=== PATIENT | female | born 1940 | race Caucasian/White ===

== ENCOUNTER 2017-05-26 14:27 | Emergency (ER) | payer BC, MEDICARE ==
--- NOTE | 2017-05-26 17:14 | ER Document Report ---
ED Medical Screen (RME) - General Chief Complaint: Fall Injury Stated Complaint: FALL HEAD INJURY Time Seen by Provider: 05/26/17 17:07 Mode of Arrival: Wheelchair Information source: Patient, Relative Notes: pt fell today hitting her head on a door. No loc, no N/V. Pt with occipital lac and takes plavix. Family states she falls about once a week. Pt states she fell because she was walking backwards. Family states pt has hx of alheizmers. Pt denies any ORTIZ, CP or other complaints. hx HTN, CAD, COPD, dementia - Related Data Allergies/Adverse Reactions: No Known Allergies Allergy (Unverified 05/26/17 15:14) Physical Exam - Vital signs Vitals: Temp Pulse Resp BP Pulse Ox 97.7 F 87 18 139/69 H 92 05/26/17 15:01 05/26/17 15:01 05/26/17 15:01 05/26/17 15:01 05/26/17 15:01 - Skin Skin irregularity: Laceration - occipital lac Course - Vital Signs Vital signs: Temp Pulse Resp BP Pulse Ox 97.7 F 87 18 139/69 H 92 05/26/17 15:01 05/26/17 15:01 05/26/17 15:01 05/26/17 15:01 05/26/17 15:01
--- NOTE | 2017-05-26 18:15 | RADIOLOGY REPORT (SQ) ---
EXAM DESCRIPTION: CT HEAD WITHOUT COMPLETED DATE/TIME: 05/26/2017 6:00 pm REASON FOR STUDY: fall, head injury COMPARISON: None. TECHNIQUE: Axial images acquired through the brain without intravenous contrast. Images reviewed wi th bone, brain and subdural windows. Images stored on PACS. All CT scanners at this facility use dose modulation, iterative reconstruction, and/or weight based d osing when appropriate to reduce radiation dose to as low as reasonably achievable (ALARA). [facility]: Dose Right [facility]: CareDose [facility]: Dose Right [facility]: Teradose 4D [facility]: [employer] RADIATION DOSE: CT Rad equipment meets quality standard of care and radiation dose reduction techniq ues were employed. CTDIvol: 64.6 mGy. DLP: 1034 mGy-cm. mGy. LIMITATIONS: Patient motion. FINDINGS: VENTRICLES: Prominent. CEREBRUM: No masses. No hemorrhage. No midline shift. Areas of low density in the white matter mos t likely due to chronic micro-vascular ischemic change. No evidence for acute infarction. CEREBELLUM: No masses. No hemorrhage. No alteration of density. No evidence for acute infarction. EXTRAAXIAL SPACES: Mild age-related involutional change. No fluid collections. No masses. ORBITS AND GLOBE: No intra- or extraconal masses. Normal contour of globe without masses. CALVARIUM: No fracture. PARANASAL SINUSES: No fluid or mucosal thickening. SOFT TISSUES: No mass or hematoma. OTHER: No other significant finding. IMPRESSION: MILD CHRONIC CHANGES OF ATROPHY AND MICROVASCULAR ISCHEMIA. NO ACUTE PROCESS. EVIDENCE OF ACUTE STROKE: NO. TECHNICAL DOCUMENTATION: JOB ID: [id number] Quality ID # [id number]: Final reports with documentation of one or more dose reduction techniques (e.g., Au tomated exposure control, adjustment of the mA and/or kV according to patient size, use of iterative reconstruction technique) 2010 [email or web address]- All Rights Reserved
[2017-05-26 18:51] LABS: APPEARANCE,URINE SLIGHTLY-CLOUDY; BILIRUBIN,URINE NEGATIVE (NEGATIVE); COLOR,URINE YELLOW; GLUCOSE, URINE NEGATIVE (NEGATIVE); KETONES,URINE NEGATIVE (NEGATIVE); LEUKOCYTE ESTERASE,URINE SMALL (NEGATIVE); NITRITE,URINE POSITIVE (NEGATIVE); PROTEIN,URINE NEGATIVE (NEGATIVE); URINE SPECIFIC GRAVITY 1.011; UROBILINOGEN,URINE NEGATIVE mg/dL (<2.0)
[2017-05-26 18:55] LABS: ABSOLUTE BASOPHILS # (AUTO) 0.1 10^3/uL (0.0-0.2); ABSOLUTE EOSINOPHILS # (AUTO) 0.1 10^3/uL (0.0-0.6); ABSOLUTE MONOCYTES (AUTO) 0.7 10^3/uL (0.1-1.4); ABSOLUTE NEUT (AUTO) 7.4 10^3/uL (1.7-8.2); BASOPHILS % (AUTO) 0.8 % (0-2); EOSINOPHILS % (AUTO) 0.9 % (0-6); HEMATOCRIT 39.1 % (36.0-47.0); HEMOGLOBIN 12.6 g/dL (12.0-15.5); LYMPHOCYTES % (AUTO) 19.9 % (13-45); MEAN CORPUSCULAR HEMOGLOBIN 28.6 pg (27.0-33.4); MEAN CORPUSCULAR HGB CONC 32.3 g/dL (32.0-36.0); MEAN CORPUSCULAR VOLUME 89 fl (80-97); MONOCYTES % (AUTO) 6.3 % (3-13); PLATELET COUNT 372 10^3/uL (150-450); RED BLOOD COUNT 4.41 10^6/uL (3.72-5.28); RED CELL DISTRIBUTION WIDTH 15.1 % (11.5-14.0); SEGMENTED NEUTROPHILS % (AUTO) 72.1 % (42-78); TOTAL CELLS COUNTED % (AUTO) 100 %; WHITE BLOOD COUNT 10.3 10^3/uL (4.0-10.5)
[2017-05-26 19:05] LABS: ALANINE AMINOTRANSFERASE 26 U/L (9-52); ALBUMIN 3.9 g/dL (3.5-5.0); ALKALINE PHOSPHATASE 85 U/L (38-126); ANION GAP 8 (5-19); ASPARTATE AMINO TRANSFERASE 26 U/L (14-36); BILIRUBIN,DIRECT 0.4 mg/dL (0.0-0.4); BILIRUBIN,TOTAL 0.4 mg/dL (0.2-1.3); BLOOD UREA NITROGEN 23 mg/dL (7-20); CALCIUM 9.9 mg/dL (8.4-10.2); CARBON DIOXIDE 35 mmol/L (22-30); CHLORIDE 95 mmol/L (98-107); GLUCOSE 126 mg/dL (75-110); POTASSIUM 3.1 mmol/L (3.6-5.0); SODIUM 137.6 mmol/L (137-145); TOTAL PROTEIN 6.6 g/dL (6.3-8.2)
[2017-05-26] MEDS ORDERED: DIPH/PERTUSS(ACELL)/TETANUS VAC/PF 0.5 ML SYR (>=10YO) IM ONE (20:27)
[2017-05-26] MEDS ORDERED: LIDOCAINE 4%/TETRACAINE 0.5%/EPI 0.18% 5 ML TOPICAL SOLN TOP ONE (22:05)
--- NOTE | 2017-05-26 22:09 | ER Document Report ---
ED General - General Chief Complaint: Fall Injury Stated Complaint: FALL HEAD INJURY Time Seen by Provider: 05/26/17 17:07 Mode of Arrival: Wheelchair Notes: Patient is a 77 year old female who presents after having a mechanical fall prior to arrival. Patient states that she was reaching for her walker or a pill bottle, fell forward and struck her head on a table. Patient notes that she sustained a laceration and had been bleeding from her scalp that has since stopped. She denies any pain or injury to any other location. She does note a dull, constant, throbbing pain to the back of her head. Nothing improves or worsens the pain. She denies any history of similar injury in the past. She denies any vomiting, weakness, numbness or confusion since the fall. She does take clopidogrel but no additional anticoagulation. She has not seen her primary doctor regarding today's concerns. She is uncertain of the last time she has received tetanus immunization. - Related Data Allergies/Adverse Reactions: No Known Allergies Allergy (Verified 05/26/17 19:59) Past Medical History - General Information source: Patient, Relative - Social History Smoking Status: Current Every Day Smoker Frequency of alcohol use: None Drug Abuse: None Lives with: Family Family History: Reviewed & Not Pertinent Patient has suicidal ideation: No Patient has homicidal ideation: No Pulmonary Medical History: Reports: Hx COPD Endocrine Medical History: Reports: Hx Diabetes Mellitus Type 2 Renal/ Medical History: Denies: Hx Peritoneal Dialysis Review of Systems - Review of Systems Notes: Constitutional: Negative for fever. Eyes: Negative for visual changes. ENT: Negative for facial injury Cardiovascular: Negative for chest injury. Respiratory: Negative for shortness of breath. Gastrointestinal: Negative for abdominal injury. Genitourinary: Negative for genital injury Musculoskeletal: Negative for back injury. Skin: Positive for laceration/abrasions. Neurological: Positive for head injury. Physical Exam - Vital signs Vitals: Temp Pulse Resp BP Pulse Ox 97.7 F 87 18 139/69 H 92 05/26/17 15:01 05/26/17 15:01 05/26/17 15:01 05/26/17 15:01 05/26/17 15:01 Interpretation: Normal Notes: PHYSICAL EXAMINATION: GENERAL: Well-appearing, no acute distress. HEAD: Atraumatic, normocephalic. EYES: Pupils equal round and reactive to light, extraocular movements intact, sclera anicteric, conjunctiva are normal. ENT: nares patent, no oral pharyngeal trauma. No hemotympanum, no Mata's sign , no raccoon eyes. NECK: No midline cervical spine tenderness. Patient able to move their head to 45 bilaterally without any discomfort. LUNGS: Breath sounds clear to auscultation bilaterally and equal. No wheezes rales or rhonchi. HEART: Regular rate and rhythm without murmurs. CHEST WALL: No ecchymosis over the chest wall. ABDOMEN: Soft, nontender, normoactive bowel sounds. No guarding, no rebound. No abdominal bruising EXTREMITIES: Normal range of motion, no pitting or edema. No long bone deformities. BACK: No midline spinal tenderness, step-offs, or deformities. NEUROLOGICAL: Face symmetric. Tongue protrudes midline. Extraocular motions intact. Pupils are 2 mm and equally reactive. Normal speech, normal gait. 5 out of 5 strength in both the distal and proximal upper and lower extremities bilaterally. Sensation is grossly intact throughout. Finger to nose testing normal. Pronator drift normal. PSYCH: Normal mood, normal affect. SKIN: Warm, Dry, normal turgor, there is a 3 cm scalp laceration to the hairline going towards the posterior aspect of the scalp, no active bleeding. Course - Re-evaluation Re-evalutation: 05/26/17 22:06 Presentation of a well appearing elderly patient in no acute distress, vitals within normal limits after a mechanical fall. Patient denies a syncopal episode as the cause for today's fall. No focal neurologic deficits on exam, no evidence of basilar skull fracture on exam without evidence of hemotympanum, raccoon eyes, or periauricular hematoma. No papilledema. Patient is not on anticoagulation. GCS is 15. No loss of consciousness. No episodes of vomiting. However, based on patient's age a CT of the head has been obtained which is negative for any acute intracranial bleed. Patient evaluated by NEXUS criteria and found to be negative. No clinical evidence to suggest increased risk of cervical spine fracture. No indication for further imaging of the cervical spine this point. Patient has no focal deformities or limited range of motion in any joint space. Chest and abdominal exam are benign without any focal tenderness, shortness of breath, or bruising over the chest or abdominal wall. Patient has no flank tenderness. There is no obvious findings on trauma exam today and therefore no further imaging or evaluation will be obtained at this time. Patient did have a 2 cm scalp laceration which has been closed primarily at the bedside with ryan. Tetanus has been updated. At this time will discharge with return precautions and follow-up recommendations. Verbal discharge instructions given a the bedside and opportunity for questions given. Medication warnings reviewed. Patient is in agreement with this plan and has verbalized understanding of return precautions and the need for primary care follow-up in the next 24-72 hours. - Vital Signs Vital signs: Temp Pulse Resp BP Pulse Ox 97.9 F 81 18 128/87 H 97 05/26/17 22:38 05/26/17 22:38 05/26/17 22:38 05/26/17 22:38 05/26/17 22:38 - Laboratory Result Diagrams: 05/26/17 18:22 05/26/17 18:22 Laboratory results interpreted by me: 05/26/17 05/26/17 05/26/17 18:22 18:22 18:22 RDW 15.1 H Potassium 3.1 L Chloride 95 L Carbon Dioxide 35 H BUN 23 H Creatinine 1.62 H Est GFR ( Amer) 37 L Est GFR (Non-Af Amer) 31 L Glucose 126 H Urine Nitrite POSITIVE H Ur Leukocyte Esterase SMALL H - Diagnostic Test Radiology reviewed: Image reviewed, Reports reviewed Radiology results interpreted by me: 05/26/17 22:07 CT head: No acute intracranial bleed or mass Procedures - Laceration/Wound Repair Head Wound length (cm): 3 Wound's Depth, Shape: Superficial Laceration pre-procedure: Chloraprep applied Wound explored: Clean Irrigated w/ Saline (mLs): 200 Wound Debrided: Minimal Wound Repaired With: Ryan Number of Sutures: 4 - ryan Post-procedure wound care: Sterile dressing applied Post-procedure NV exam normal: Yes Complications: No Discharge - Discharge Clinical Impression: Fall Qualifiers: Encounter type: initial encounter Qualified Code(s): W19.XXXA - Unspecified fall, initial encounter Scalp laceration Qualifiers: Encounter type: initial encounter Qualified Code(s): S01.01XA - Laceration without foreign body of scalp, initial encounter Head trauma Qualifiers: Encounter type: initial encounter Qualified Code(s): S09.90XA - Unspecified injury of head, initial encounter Condition: Good Disposition: HOME, SELF-CARE Additional Instructions: You have been seen in the Emergency Department (ED) today following a fall. Your workup today did not reveal any injuries that require you to stay in the hospital. You can expect, though, to be stiff and sore for the next several days. He can take Tylenol 1000 mg every 6 hours as needed for pain. Please return to your primary doctor, the ED, or an urgent care in 7 days for staple removal. Return immediately if you develop spreading redness around the wound, pus from the wound, worsening pain, or a fever of >100.4. Keep the area clean and dry. Wash gently with soap and water twice daily and cover with antibiotic ointment. Call your doctor or return to the ED if you develop a sudden or severe headache , confusion, slurred speech, facial droop, weakness or numbness in any arm or leg, extreme fatigue, vomiting more than two times, severe abdominal pain, or other symptoms that concern you. Referrals: GRIS MORGAN MD [Primary Care Provider] - Follow up as needed
[2017-05-26 22:49] VITALS: BP 128/87
--- NOTE | 2017-05-27 09:29 | EKG REPORT ---
SEVERITY:- ABNORMAL ECG - SINUS RHYTHM NONSPECIFIC INTRAVENTRICULAR CONDUCTION DELAY PROBABLE LVH WITH SECONDARY REPOL ABNRM : Confirmed by: Alex Hinds 27-May-2017 09:27:49
== END 2017-05-26 22:40 | disposition home or self-care (01) ==
LOC: ER 14:27
PROC: 0HQ0XZZ Repair Scalp Skin, External Approach (ICD-10-PCS; principal; 2017-05-26)
DX: S01.01XA Laceration without foreign body of scalp, initial encounter (principal); S09.90XA Unspecified injury of head, initial encounter; W18.00XA Striking against unspecified object with subsequent fall, initial encounter; F17.200 Nicotine dependence, unspecified, uncomplicated
CPT/HCPCS: 36415; 70450; 80053; 81001; 85025; 87086; 87088; 87186; 90471; 90715; 93005; 93010; 99284; J3490

== ENCOUNTER 2017-06-02 09:40 | Emergency (ER) | payer MEDICARE ==
--- NOTE | 2017-06-02 11:12 | ER Document Report ---
ED General - General Chief Complaint: Suture Removal Stated Complaint: SUTURE REMOVAL Time Seen by Provider: 06/02/17 10:53 Mode of Arrival: Wheelchair Information source: Patient Notes: Patient is a 77 year old female who presents for staple removal to scalp laceration sustained after fall 7 days ago. She denies any subsequent headaches , nausea, vomiting, bleeding, drainage or swelling to laceration area. Otherwise doing well. TRAVEL OUTSIDE OF THE [place] IN LAST 30 DAYS: No - Related Data Allergies/Adverse Reactions: No Known Allergies Allergy (Verified 06/02/17 09:42) Past Medical History - General Information source: Patient - Social History Smoking Status: Never Smoker Family History: Reviewed & Not Pertinent Pulmonary Medical History: Reports: Hx COPD Endocrine Medical History: Reports: Hx Diabetes Mellitus Type 2 Renal/ Medical History: Denies: Hx Peritoneal Dialysis Review of Systems - Review of Systems Constitutional: See HPI EENT: No symptoms reported Cardiovascular: No symptoms reported Respiratory: No symptoms reported Gastrointestinal: No symptoms reported Genitourinary: No symptoms reported Female Genitourinary: No symptoms reported Musculoskeletal: No symptoms reported Skin: See HPI Hematologic/Lymphatic: No symptoms reported Neurological/Psychological: No symptoms reported Physical Exam - Vital signs Vitals: Temp Pulse Resp BP Pulse Ox 98.0 F 73 20 131/70 H 100 06/02/17 10:05 06/02/17 10:05 06/02/17 10:05 06/02/17 10:05 06/02/17 10:05 - Notes Notes: PHYSICAL EXAM: CONSTITUTIONAL: Alert and oriented, well-appearing and in no acute distress. HENT: Normocephalic, atraumatic. Uvula midline. Moist mucous membranes. 3 cm well approximated well healed scalp laceration with 4 ryan intact. No erythema, warmth, drainage or bleeding. EYES: Pupils equal round and reactive to light, EOM intact. Sclera anicteric, conjunctiva are normal. No entrapment. NECK: supple without lymphadenopathy. No midline tenderness or paraspinous muscle spasms. No step-offs or deformities. ROM intact. HEART: Regular rate and rhythm without murmurs. LUNGS: CTAB and equal. No wheezes, rales or rhonchi. EXTREMITIES: Normal range of motion, no pitting edema. No cyanosis. Cap Refill < 3 seconds. NEURO: Cranial nerves grossly intact. Normal sensory/motor exams. PSYCH: Normal mood, normal affect. SKIN: Warm and dry. Normal turgor. No rashes or lesions noted. Course - Re-evaluation Re-evalutation: 06/02/17 11:31 Patient seen and examined. Well-healing, approximated 3 cm scalp laceration with intact ryan -ryan removed without difficulty. Patient tolerated well. Discussed local wound care to area. At this time, will discharge with return precautions and follow-up recommendations. Verbal discharge instructions given at the bedside and opportunity for questions given. Medication warnings reviewed. Patient is in agreement with this plan and has verbalized understanding of return precautions and the need for primary care follow-up in the next 24-72 hours. - Vital Signs Vital signs: Temp Pulse Resp BP Pulse Ox 98.0 F 73 20 131/70 H 100 06/02/17 10:05 06/02/17 10:05 06/02/17 10:05 06/02/17 10:05 06/02/17 10:05 Discharge - Discharge Clinical Impression: Removal of ryan Condition: Stable Disposition: HOME, SELF-CARE Instructions: Staple Removal ([facility]) Forms: Elevated Blood Pressure Referrals: GRIS MORGAN MD [Primary Care Provider] - Follow up as needed
[2017-06-02 11:43] VITALS: BP 140/76
== END 2017-06-02 11:43 | disposition home or self-care (01) ==
LOC: ER 09:40
DX: Z48.02 Encounter for removal of sutures (principal)

== ENCOUNTER 2018-05-11 10:00 | Day surgery (SDC) | payer MEDICARE, BC ==
[~2018-05-11 10:00] MED LIST: PROPOFOL INJ 200 MG/20 ML VIAL IV ONE
[2018-05-11 12:01] VITALS: BP 146/46
--- NOTE | 2018-05-11 12:40 | Operative Report ---
Operative Report DATE OF SURGERY: 05/11/18 Operative Report: The risks, benefits and alternatives of the procedure including the risk of bleeding, perforation requiring surgery have been explained to the patient in detail and informed consent has been obtained. The patient is taken back to the endoscopy suite and placed in the left, lateral decubital position. Timeout was called. Propofol medication is administered. A rectal examination is done which did not reveal any masses, tears or fissures. An Olympus videoscope was introduced into the patient's rectum. The scope was then carefully advanced all the way to the cecum. The cecum was identified by the usual anatomical landmarks of the ileocecal valve as well as the appendiceal office. Photodocumentation is obtained. The scope was then sequentially pulled back via the various segments of the colon including the ascending colon, hepatic flexure, transverse colon, splenic flexure, descending colon and finally to the rectosigmoid portions of the colon. Retroflexion maneuver is performed. 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 Ascending colon polyp; first is removed via snare polypectomy and retrieved second no tissue was retrieved. Diverticulosis without any evidence of diverticulitis OPERATION: Colonoscopy with snare polypectomy. Colonoscopy with biopsy SURGEON: EDWIN MCCOY ANESTHESIA: LMAC TISSUE REMOVED OR ALTERED: As noted above. COMPLICATIONS: None. ESTIMATED BLOOD LOSS: None. INTRAOPERATIVE FINDINGS: As noted above. PROCEDURE: Patient tolerated the procedure well. No immediate postprocedure complications are noted. Patient discharged in good condition. Discharge date 05/11/2018. Discharge diet: Regular. Discharge activity: Regular. 2-3-week follow-up to discuss findings. Patient is instructed to call the office or proceed to the emergency room should there be any further problems or questions. 3-5-year surveillance colonoscopy. I will wait to pathology.
== END 2018-05-11 12:04 | disposition home or self-care (01) ==
LOC: END 10:00
PROVIDERS: ATTEND Internal Medicine Gastroenterology
DX: Z12.11 Encounter for screening for malignant neoplasm of colon (principal); K57.30 Diverticulosis of large intestine without perforation or abscess without bleeding; D12.2 Benign neoplasm of ascending colon; K63.89 Other specified diseases of intestine; Z86.010 Personal history of colon polyps; E11.9 Type 2 diabetes mellitus without complications; F17.210 Nicotine dependence, cigarettes, uncomplicated; Z79.82 Long term (current) use of aspirin; Z79.899 Other long term (current) drug therapy
CPT/HCPCS: 45380; 45385; 88305 ×2; J2704

== ENCOUNTER 2019-08-03 14:41 | Inpatient (IN) | payer MEDICARE, BC ==
--- NOTE | 2019-08-03 15:27 | RADIOLOGY REPORT (SQ) ---
EXAM DESCRIPTION: CHEST SINGLE VIEW IMAGES COMPLETED DATE/TIME: 08/03/2019 3:12 pm REASON FOR STUDY: bed 2 sepsis alert COMPARISON: None. EXAM PARAMETERS: NUMBER OF VIEWS: One view. TECHNIQUE: Single frontal radiographic view of the chest acquired. RADIATION DOSE: NA LIMITATIONS: None. FINDINGS: LUNGS AND PLEURA: No opacities, masses or pneumothorax. No pleural effusion. MEDIASTINUM AND HILAR STRUCTURES: No masses. Contour normal. HEART AND VASCULAR STRUCTURES: Normal heart size. Mild dilated thoracic aorta measuring up to 3.9 cm with scattered calcification. Central vascular prominence. BONES: No acute findings. HARDWARE: None in the chest. OTHER: No other significant finding. IMPRESSION: No focal airspace disease. Ectatic atherosclerotic aorta measuring up to 3.9 cm. TECHNICAL DOCUMENTATION: JOB ID: [id number] [email or web address]- All Rights Reserved Reading location - IP/workstation name: [email or web address]
--- NOTE | 2019-08-03 15:46 | ER Document Report ---
ED General - General Chief Complaint: Fall Stated Complaint: POSSIBLE SEPTIC Time Seen by Provider: 08/03/19 14:54 Notes: Patient is a 79-year-old female who presents to the emergency department with a chief complaint of shortness of breath, cough, and a fall that happened 2 days ago. Patient has had shortness of breath and a cough for the past few weeks according to the pulmology visit record according to the patient's christian science healer, patient was feeling dizzy and not feeling well. Patient was also pale and vomited 3 times in the office. The record states that she vomited brown material. Patient states that her christian science healer sent her here to the emergency department. Patient has complaints of right lower and upper abdominal pain. She also has complaints of a sore throat. TRAVEL OUTSIDE OF THE [place] IN LAST 30 DAYS: No - Related Data Allergies/Adverse Reactions: No Known Allergies Allergy (Verified 05/11/18 10:03) Past Medical History - General Information source: Patient - Social History Smoking Status: Unknown if Ever Smoked Family History: Reviewed & Not Pertinent Patient has suicidal ideation: No Patient has homicidal ideation: No - Past Medical History Cardiac Medical History: Reports: Hx Hypertension Denies: Hx Coronary Artery Disease, Hx Heart Attack Pulmonary Medical History: Reports: Hx COPD Denies: Hx Asthma, Hx Bronchitis, Hx Pneumonia Neurological Medical History: Reports: Hx Cerebrovascular Accident. Denies: Hx Seizures Endocrine Medical History: Reports: Hx Diabetes Mellitus Type 2 Renal/ Medical History: Denies: Hx Peritoneal Dialysis Musculoskeletal Medical History: Reports Hx Arthritis - Immunizations Hx Diphtheria, Pertussis, Tetanus Vaccination: No Review of Systems - Review of Systems Notes: REVIEW OF SYSTEMS: CONSTITUTIONAL : Denies recent illness. Denies recent unintentional weight loss. Denies fever, chills, or sweats. EENT: Denies eye, ear, throat, or mouth pain, discharge, or symptoms. Denies nasal or sinus congestion. CARDIOVASCULAR: Denies chest pain. RESPIRATORY: See HPI. GASTROINTESTINAL: See HPI. GENITOURINARY: Denies difficulty urinating, burning, blood in urine, urgency or frequency. MUSCULOSKELETAL: Denies neck and back pain. Denies joint pain or swelling. SKIN: Denies rash, itchiness, or lesions HEMATOLOGIC : Denies easy bruising or bleeding. LYMPHATIC: Denies swollen, painful, enlarged glands. NEUROLOGICAL: Denies no numbness or tingling denies weakness. Denies headache. Denies altered mental status. Denies alteration in speech. PSYCHIATRIC: Denies stress, anxiety, alteration in sleep patterns, or depression. All other systems reviewed and negative. Physical Exam - Vital signs Vitals: Resp Pulse Ox 27 H 97 08/03/19 14:56 08/03/19 14:56 - Notes Notes: PHYSICAL EXAMINATION: GENERAL: Appears chronically, no acute distress. HEAD: Normocephalic, atraumatic. EYES: PERRL, conjunctiva normal, all extraocular movements intact, sclera mildly icteric ENT: Dry mucous membranes. NECK: Supple, no noticeable swelling, redness, rash. Normal range of motion. LUNGS: Equal breath sounds bilaterally and clear to auscultation. No wheezes rales or rhonchi. CARDIOVASCULAR: S1-S2, regular rate, regular rhythm. Radial pulses 2+, normal. ABDOMEN: Normoactive bowel sounds. Soft, very tender generalized abdomen, and no masses palpated. EXTREMITIES: Normal strength and range of motion, no pitting or edema. No cyanosis. NEUROLOGICAL: Moves all extremities upon command. Strength 5/5 in all extremities. PSYCH: Normal mood, normal affect. SKIN: Warm, dry. No rash, lesions, ulcerations noted. Normal skin turgor. Course - Re-evaluation Re-evalutation: 08/03/19 17:41 Patient has a leukocytosis of 13,600. There is a left shift. Blood gas shows a PO2 of 79.5. This may be the patient's baseline, as she does have COPD. Lactic acidosis acid is 4.3. Patient has an acute kidney injury with a BUN and cr eatinine that are elevated. AST, ALT, and alkaline phosphatase are elevated. Lipase is mildly elevated. Patient will receive a liter of fluids. CT of the abdomen pelvis shows nodules in her liver, mostly likely metastases. She also has a 2 cm nodule in his right lower lobe of his lung.I spoke with Dr. Pereyra, he is recommending admission to the hospital. Once COVID screen is negative, he will proceed with endoscopy or colonoscopy. Patient will be started on Protonix. 08/03/19 17:[address] Leung. He would like me to speak with Dr. Gomez the oncologist in regards to the nodules found in the patient's right lower lobe of her lung and in her liver. 08/03/19 17:[address] Gomez. She is recommending that the patient be worked up for GI bleed first. She does not mind following the patient after. 08/03/19 18:15 I spoke with GARCÍA Pop. The patient will be admitted to the telemetry unit. - Vital Signs Vital signs: Temp Pulse Resp BP Pulse Ox 98.2 F 27 H 130/68 H 97 08/03/19 16:08 08/03/19 16:01 08/03/19 16:00 08/03/19 16:01 - Laboratory Result Diagrams: 08/03/19 15:45 08/03/19 15:45 Laboratory results interpreted by me: 08/03/19 08/03/19 08/03/19 15:45 15:45 15:45 WBC 13.6 H RBC 3.42 L Hgb 9.9 L Hct 30.3 L RDW 15.0 H Plt Count 517 H Lymph % (Auto) 11.6 L Absolute Neuts (auto) 10.8 H Seg Neutrophils % 79.7 H Carbonic Acid ABG pCO2 ABG pO2 ABG HCO3 ABG Total CO2 BUN 26 H Creatinine 1.42 H Est GFR ( Amer) 43 L Est GFR (MDRD) Non-Af 36 L Glucose 142 H Lactic Acid 4.3 H Calcium 11.8 H AST 151 H ALT 37 H Alkaline Phosphatase 191 H Lipase 573.9 H Carcinoembryonic Ag 08/03/19 08/03/19 08/03/19 15:45 16:36 17:45 WBC RBC Hgb Hct RDW Plt Count Lymph % (Auto) Absolute Neuts (auto) Seg Neutrophils % Carbonic Acid 0.99 L ABG pCO2 33.0 L ABG pO2 79.5 L ABG HCO3 19.8 L ABG Total CO2 20.8 L BUN Creatinine Est GFR ( Amer) Est GFR (MDRD) Non-Af Glucose Lactic Acid 2.9 H Calcium AST ALT Alkaline Phosphatase Lipase Carcinoembryonic Ag 43.90 H - EKG Interpretation by Me Additional EKG results interpreted by me: 08/03/19 Sinus rhythm. Rate 95. MO 188; QRS 90; QT 364; QTc 458. No ST elev ations or depressions noted. Occasional PVCs. Discharge - Discharge Clinical Impression: Anemia Qualifiers: Anemia type: unspecified type Qualified Code(s): D64.9 - Anemia, unspecified GI bleed Qualifiers: GI bleed type/associated pathology: unspecified gastrointestinal hemorrhage type Qualified Code(s): K92.2 - Gastrointestinal hemorrhage, unspecified Condition: Stable Disposition: ADMITTED INPATIENT Admitting Provider: Xochitl (Hospitalist) Unit Admitted: Telemetry - 5th floor COVID rule out
[2019-08-03 16:11] LABS: ABSOLUTE BASOPHILS # (AUTO) 0.1 10^3/uL (0.0-0.2); ABSOLUTE LYMPHOCYTES (AUTO) 1.6 10^3/uL (0.5-4.7); ABSOLUTE NEUT (AUTO) 10.8 10^3/uL (1.7-8.2); BASOPHILS % (AUTO) 0.8 % (0-2); EOSINOPHILS % (AUTO) 0.3 % (0-6); HEMATOCRIT 30.3 % (36.0-47.0); HEMOGLOBIN 9.9 g/dL (12.0-15.5); LYMPHOCYTES % (AUTO) 11.6 % (13-45); MEAN CORPUSCULAR HEMOGLOBIN 28.8 pg (27.0-33.4); MEAN CORPUSCULAR HGB CONC 32.5 g/dL (32.0-36.0); MEAN CORPUSCULAR VOLUME 89 fl (80-97); MONOCYTES % (AUTO) 7.6 % (3-13); PLATELET COUNT 517 10^3/uL (150-450); RED BLOOD COUNT 3.42 10^6/uL (3.72-5.28); SEGMENTED NEUTROPHILS % (AUTO) 79.7 % (42-78); TOTAL CELLS COUNTED % (AUTO) 100 %; WHITE BLOOD COUNT 13.6 10^3/uL (4.0-10.5)
[2019-08-03 16:21] LABS: INTERNATIONAL RATION (INR) 1.11; PROTHROMBIN TIME 14.4 SEC (11.4-15.4)
[2019-08-03 16:31] LABS: ALBUMIN 3.6 g/dL (3.5-5.0); ALKALINE PHOSPHATASE 191 U/L (38-126); ANION GAP 9 (5-19); ASPARTATE AMINO TRANSFERASE 151 U/L (14-36); BILIRUBIN,DIRECT 0.3 mg/dL (0.0-0.4); BLOOD UREA NITROGEN 26 mg/dL (7-20); CALCIUM 11.8 mg/dL (8.4-10.2); CARBON DIOXIDE 23 mmol/L (22-30); CHLORIDE 106 mmol/L (98-107); GLUCOSE 142 mg/dL (75-110); POTASSIUM 4.9 mmol/L (3.6-5.0); TOTAL PROTEIN 6.5 g/dL (6.3-8.2)
[2019-08-03 16:57] LABS: ARTERIAL BLOOD BASE EXCESS -4.6 mmol/L; ARTERIAL BLOOD H2CO3 0.99 mmol/L (1.05-1.35); ARTERIAL BLOOD HCO3 19.8 mmol/L (20-24); ARTERIAL BLOOD O2 SATURATION 95.9 % (94-98); ARTERIAL BLOOD PO2 79.5 mmHg (80-100); ARTERIAL BLOOD TOTAL CO2 20.8 mmol/L (21-25)
[2019-08-03 17:00] LABS: ARTERIAL BLOOD FIO2 ROOM AIR
--- NOTE | 2019-08-03 17:09 | RADIOLOGY REPORT (SQ) ---
EXAM DESCRIPTION: CT HEAD WITHOUT IMAGES COMPLETED DATE/TIME: 08/03/2019 4:59 pm REASON FOR STUDY: fall COMPARISON: 2018 TECHNIQUE: Axial images acquired through the brain without intravenous contrast. Images reviewed wi th bone, brain and subdural windows. Images stored on PACS. All CT scanners at this facility use dose modulation, iterative reconstruction, and/or weight based d osing when appropriate to reduce radiation dose to as low as reasonably achievable (ALARA). [facility]: Dose Right [facility]: [employer]Care [facility]: Dose Right [facility]: Teradose 4D [facility]: [employer] RADIATION DOSE: CT Rad equipment meets quality standard of care and radiation dose reduction techniq ues were employed. CTDIvol: 53.2 mGy. DLP: 1017 mGy-cm. mGy. LIMITATIONS: None. FINDINGS: VENTRICLES: Age-appropriate. CEREBRUM: No mass effect. No hemorrhage. No midline shift. Normal naidu/white matter differentiatio n. No evidence for acute territorial infarction. CEREBELLUM: No mass effect. No hemorrhage. No alteration of density. No evidence for acute infarct ion. EXTRAAXIAL SPACES: No fluid collections. ORBITS AND GLOBE: Symmetrical contour of the globes. CALVARIUM: No depressed skull fracture. PARANASAL SINUSES: No air-fluid level. SOFT TISSUES: No hematoma. IMPRESSION: No acute intracranial hemorrhage or acute territorial infarct. TECHNICAL DOCUMENTATION: JOB ID: [id number] [facility] [id number]: Final reports with documentation of one or more dose reduction techniques (e.g., Automate d exposure control, adjustment of the mA and/or kV according to patient size, use of iterative recons truction technique) 2010 [employer]- All Rights Reserved Reading location - IP/workstation name: [email or web address]
--- NOTE | 2019-08-03 17:15 | RADIOLOGY REPORT (SQ) ---
EXAM DESCRIPTION: CT ABD/PELVIS WITH IV ONLY IMAGES COMPLETED DATE/TIME: 08/03/2019 4:59 pm REASON FOR STUDY: abdominal pain COMPARISON: None. TECHNIQUE: CT scan of the abdomen and pelvis performed using helical scanning technique with dynamic intravenous contrast injection. No oral contrast. Images reviewed with lung, soft tissue, and bone windows. Reconstructed coronal and sagittal MPR images reviewed. Delayed images for evaluation of the urinary system also acquired. All images stored on PACS. All CT scanners at this facility use dose modulation, iterative reconstruction, and/or weight based d osing when appropriate to reduce radiation dose to as low as reasonably achievable (ALARA). [facility]: Dose Right [facility]: CareDose [facility]: Dose Right [facility]: Teradose 4D [facility]: SIMI CONTRAST TYPE AND DOSE: contrast/concentration: Isovue 300.00 mg/ml; Total Contrast Delivered: 72.0 ml; Total Saline Delivered: 57.0 ml RENAL FUNCTION: Creatinine 1.4 RADIATION DOSE: CT Rad equipment meets quality standard of care and radiation dose reduction techniq ues were employed. CTDIvol: NaN - NaN mGy. DLP: 0 mGy-cm.. LIMITATIONS: None. FINDINGS: LOWER CHEST: 2 cm nodule abutting the right lower lobe posterior pleura. Right hilar and subcarinal adenopathy, incompletely assessed. LIVER: Heterogeneous. Numerous confluent hypodense masses throughout. Consistent with metastatic di sease. No duct dilatation. SPLEEN: Normal size. No focal lesions. PANCREAS: No masses. No significant calcifications. No adjacent inflammation or peripancreatic fluid collections. Pancreatic duct not dilated. GALLBLADDER: No identified stones by CT criteria. No inflammatory changes to suggest cholecystitis. ADRENAL GLANDS: Bilateral adrenal nodules. Right greater than left. Right nodule measures over 2 cm . Left measures just at 2 cm. RIGHT KIDNEY AND URETER: No solid masses. No significant calcification. No hydronephrosis or hydroure ter. LEFT KIDNEY AND URETER: No solid masses. No significant calcification. No hydronephrosis or hydrouret er. AORTA AND VESSELS: Heavy atherosclerotic disease in the aorta. 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 Mild peripheral thrombus in the aneurysm sac. Heavy arterial calcific ation generally. Mesenteric arteries look patent. No occlusion of the renal arteries. Extensive na rrowing likely in the common iliac arteries. No venous clot detected. RETROPERITONEUM: No retroperitoneal adenopathy, hemorrhage or masses. BOWEL AND PERITONEAL CAVITY: Moderate proximal colonic stool. No discrete mass, suspicious wall thic kening or obstruction evident. No ascites, bulky implants or abnormal gas detected in the abdomen. APPENDIX: Normal. PELVIS: Partially obscured by right hip replacement artifact. Trace free fluid. ABDOMINAL WALL: No bowel containing hernia. Small umbilical and infraumbilical midline fat containin g hernias. No soft tissue mass. BONES: Osteopenia. Degenerative spine findings. No destructive lesions. OTHER: No other significant finding. IMPRESSION: 1. Suspicious findings in the chest. Adenopathy and at least 1 right lower lobe soft tissue nodule m easuring over 2 cm. 2. Suspicious findings in the liver. Numerous masses are consistent with metastatic disease. 3. Suspicious bilateral adrenal nodules. TECHNICAL DOCUMENTATION: JOB ID: [id number] Quality ID # [id number]: Final reports with documentation of one or more dose reduction techniques (e.g., Au tomated exposure control, adjustment of the mA and/or kV according to patient size, use of iterative reconstruction technique) 2010 [employer]- All Rights Reserved Reading location - IP/workstation name: [email or web address]
[2019-08-03] MEDS ORDERED: NORMAL SALINE 1000 ML 1,000 ML IV ONE (17:28)
[2019-08-03] MEDS ORDERED: ONDANSETRON HCL INJ/PF 4 MG/2 ML SDV IV ONE (17:28)
[2019-08-03] MEDS ORDERED: PANTOPRAZOLE SODIUM 40 MG VIAL IV ONE (17:38)
--- NOTE | 2019-08-03 18:46 | PDOC CONSULTATION ---
Consultation Consult Date: 08/03/19 Provider Consulted: EDWIN MCCOY Consult reason:: vomiting, melena, drop in Hgb 3gm History of Present Illness Admission Date/PCP: BLADIMIR JIMENEZ PA-C History of Present Illness: PHILLIP WESLEY is a 79 year old female patient had seen her Pulmonary MD earlier in the day history of COPD has been having SOB for the past 3 weeks no fever complained about feeling weak was sent to ED noted on CT to have findings consistent with possible numerous metastatic lesions in the liver no ductal dilation patient being admitted less likely to be due to COVID 19 but will need to be ruled out patient threw up and noted to be dark drop of the Hgb of about 3 grams from her baseline admitted for stabalization, needs work up of her SOB will need GI EGD at some point not only for GI bleeding but to see if there is a lesion in the stomach started on PPI for now, will wait on labs to rule out for acute infectious process due to Covid 19 EGD likely thereafter Past Medical History Cardiac Medical History: Reports: Hypertension Denies: Coronary Artery Disease, Myocardial Infarction Pulmonary Medical History: Reports: Chronic Obstructive Pulmonary Disease (COPD) Denies: Asthma, Bronchitis, Pneumonia Neurological Medical History: Denies: Seizures Endocrine Medical History: Reports: Diabetes Mellitus Type 2 Musculoskeltal Medical History: Reports: Arthritis Hematology: Denies: Anemia Social History Smoking Status: Unknown if Ever Smoked Family History Family History: Reviewed & Not Pertinent Parental Family History Reviewed: Yes Children Family History Reviewed: Unknown Sibling(s) Family History Reviewed.: Unknown Medication/Allergy Home Medications: Ascorbic Acid/Ascorbate Sodium [Vit C-Zoie Hips 500 mg Chew Tb] 500 mg PO DAILY 05/07/18 Calcium Citrate/Vitamin D3 [Calcitrate + Vit D Caplet] 1 each PO DAILY 05/07/18 Clopidogrel Bisulfate [Plavix] 75 mg PO DAILY 05/07/18 Fluticasone/Vilanterol [Breo Ellipta 100-25 Mcg INH] 1 each IH DAILY 05/07/18 Furosemide [Lasix] 40 mg PO ASDIR PRN 05/07/18 Imipramine HCl [Tofranil] 100 mg PO QHS 05/07/18 Nadolol [Corgard] 20 mg PO DAILY 05/07/18 Potassium Chloride [Klor-Con 10 Meq Capsule ER] 10 meq PO DAILY 05/07/18 Vit B Cmplx #9/FA/Vit C/Vit E [Renatabs Tablet] 1 each PO DAILY 05/07/18 Allopurinol [Zyloprim 100 mg Tablet] 2 tab PO DAILY 05/11/18 Isosorbide Mononitrate [Imdur 30 mg Tablet.er] 30 mg PO QHS 05/11/18 Sennosides [Senokotxtra] 17.2 mg PO QHS 05/11/18 Allergies/Adverse Reactions: No Known Allergies Allergy (Verified 05/11/18 10:03) Review of Systems Constitutional: PRESENT: weakness. ABSENT: fever(s), headache(s), night sweats Eyes: ABSENT: visual disturbances Ears: ABSENT: hearing changes Nose, Mouth, and Throat: ABSENT: mouth pain, sore throat Cardiovascular: PRESENT: dyspnea on exertion. ABSENT: edema Respiratory: ABSENT: hemoptysis Gastrointestinal: PRESENT: melena. ABSENT: hematemesis, hematochezia Genitourinary: ABSENT: dysuria, hematuria Neurological: ABSENT: syncope, tingling, tremor(s), vertigo Endocrine: ABSENT: polydipsia, polyphagia, polyuria Hematologic/Lymphatic: ABSENT: easy bruising Physical Exam Vital Signs: Temp Pulse Resp BP Pulse Ox 98.2 F 27 H 130/68 H 97 08/03/19 16:08 08/03/19 16:01 08/03/19 16:00 08/03/19 16:01 Intake & Output 08/02/19 08/03/19 08/04/19 06:59 06:59 06:59 Weight 66.2 kg General appearance: PRESENT: mild distress, thin Head exam: PRESENT: atraumatic, normocephalic Eye exam: PRESENT: EOMI, PERRLA. ABSENT: nystagmus, periorbital swelling, scleral icterus Mouth exam: PRESENT: moist, neck supple Neck exam: ABSENT: meningismus, tenderness, thyromegaly Respiratory exam: PRESENT: symmetrical, tachypnea. ABSENT: wheezes Cardiovascular exam: PRESENT: RRR, rubs, +S1, +S2 GI/Abdominal exam: PRESENT: normal bowel sounds. ABSENT: Saenz's sign, rebound Extremities exam: ABSENT: joint swelling, pedal edema Neurological exam: PRESENT: oriented to person, oriented to place, CN II-XII grossly intact Skin exam: ABSENT: mottled, pallor, urticaria, vesicles Results Laboratory Results: 08/03/19 15:45 08/03/19 15:45 08/03/19 08/03/19 08/03/19 15:45 15:45 15:45 WBC 13.6 H RBC 3.42 L Hgb 9.9 L Hct 30.3 L MCV 89 MCH 28.8 MCHC 32.5 RDW 15.0 H Plt Count 517 H Seg Neutrophils % 79.7 H Carbonic Acid HCO3/H2CO3 Ratio ABG pH ABG pCO2 ABG pO2 ABG HCO3 ABG O2 Saturation ABG Base Excess FiO2 Sodium 138.4 Potassium 4.9 Chloride 106 Carbon Dioxide 23 Anion Gap 9 BUN 26 H Creatinine 1.42 H Est GFR ( Amer) 43 L Glucose 142 H Lactic Acid 4.3 H Calcium 11.8 H Total Bilirubin 1.0 AST 151 H Alkaline Phosphatase 191 H Total Protein 6.5 Albumin 3.6 Lipase 573.9 H 08/03/19 16:36 WBC RBC Hgb Hct MCV MCH MCHC RDW Plt Count Seg Neutrophils % Carbonic Acid 0.99 L HCO3/H2CO3 Ratio 20:1 ABG pH 7.40 ABG pCO2 33.0 L ABG pO2 79.5 L ABG HCO3 19.8 L ABG O2 Saturation 95.9 ABG Base Excess -4.6 FiO2 ROOM AIR Sodium Potassium Chloride Carbon Dioxide Anion Gap BUN Creatinine Est GFR ( Amer) Glucose Lactic Acid Calcium Total Bilirubin AST Alkaline Phosphatase Total Protein Albumin Lipase 08/03/19 15:45 Troponin I < 0.012 Impressions: Chest X-Ray 08/03/19 14:50 IMPRESSION: No focal airspace disease. Ectatic atherosclerotic aorta measuring up to 3.[address] 08/03/19 15:24 IMPRESSION: No acute intracranial hemorrhage or acute territorial infarct. Abdomen/Pelvis CT 08/03/19 15:26 IMPRESSION: 1. Suspicious findings in the chest. Adenopathy and at least 1 right lower lobe soft tissue nodule measuring over 2 cm. 2. Suspicious findings in the liver. Numerous masses are consistent with metastatic disease. 3. Suspicious bilateral adrenal nodules. Assessment & Plan - Diagnosis (1) Anemia Qualifiers: Anemia type: unspecified type Qualified Code(s): D64.9 - Anemia, uns pecified Plan: could be due to multifactorial reasons need to exclude malignancy since CT show numerous lesions probably consistent with worrisome source has been vomiting and nauseated as well rule out pulmonary infection with Covid -19 once excluded will need EGD (2) GI bleed Qualifiers: GI bleed type/associated pathology: unspecified gastrointestinal hemorrhage type Qualified Code(s): K92.2 - Gastrointestinal hemorrhage, unspecified Plan: as noted above, drop in baseline Hgb has had nausea and vomiting possible coffee grounds will need EGD start PPI for now will arrange for EGD once pulmonary infection excluded will continue to follow spoke with ED physician - Time Time Spent: 50 to 70 Minutes
[2019-08-03] MEDS ORDERED: MAGNESIUM HYDROXIDE SUSP 30 ML UDCUP PO PRN (18:49)
[2019-08-03] MEDS ORDERED: ONDANSETRON HCL INJ/PF 4 MG/2 ML SDV IV PRN (18:49)
[2019-08-03] MEDS ORDERED: ACETAMINOPHEN 325 MG TABLET PO PRN (18:49)
[2019-08-03] MEDS ORDERED: MAG HYDROX/AL HYDROX/SIMETH SUSP 30 ML UDCUP PO PRN (18:49)
[2019-08-03] MEDS ORDERED: ALBUTEROL SULFATE HFA (90 MCG/PUFF) 8 GM MDI IH PRN (18:55)
[2019-08-03] MEDS ORDERED: DEXTROSE 40% GEL 15 GM TUBE PO PRN ×2 (19:01)
[2019-08-03] MEDS ORDERED: DEXTROSE 50%-WATER 25 GM/50 ML DISP.SYRIN IV PRN ×2 (19:01)
[2019-08-03] MEDS ORDERED: GLUCAGON,HUMAN RECOMB 1 MG INJ IM PRN (19:01)
[2019-08-03] MEDS ORDERED: NORMAL SALINE 1000 ML 1,000 ML IV PRN (19:04)
[2019-08-03] MEDS ORDERED: ALBUTEROL SULFATE HFA (90 MCG/PUFF) 200 PUFF/8.5 GM MDI IH PRN (19:13)
--- NOTE | 2019-08-03 19:21 | PDOC H&P ---
History of Present Illness Admission Date/PCP: BLADIMIR JIMENEZ PA-C Patient complains of: vomiting, abdominal pain History of Present Illness: PHILLIP WESLEY is a 79 year old female With a past medical history significant for CVA 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 Seth's office today with a report of emesis x1. Patient also reports that she has had increased weakness, fatigue, and a fall earlier this week. Evaluation in the emergency department revealed tachypnea (RR 24-29) but otherwise stable vital signs, leukocytosis (13.6), anemia (Hgb 9.9), PLT 517, normal coags, blood glass showing mild hypoxia, chemistry revealing mild JOHNSON (CR 1.42/BUN 26) elevated lactic acid 4.3, elevated LFTs, lipase 573, normal troponin. Chest x-ray is benign. Head CT is negative for acute findings. Abdominal CT revealed 2 cm nodule to the right lower lobe posterior pleura with right hilar and subcarinal adenopathy, numerous confluent hypodense masses throughout the liver consistent with metastatic disease and abdominal adenopathy. COVID-19 testing was undertaken due to patient's report of dyspnea and cough. Dr. Pereyra was consulted and is agreeable to EGD/colonoscopy as indicated once COVID is ruled out. Discussed with Dr. Sim; patient is appropriate for outpatient follow-up. She is referred to the hospitalist service for admission and management of the above-stated complaints and findings. Past Medical History Cardiac Medical History: Reports: Hypertension Denies: Coronary Artery Disease, Myocardial Infarction Pulmonary Medical History: Reports: Chronic Obstructive Pulmonary Disease (COPD) Denies: Asthma, Bronchitis, Pneumonia EENT Medical History: Reports: None Neurological Medical History: Reports: Ischemic CVA Denies: Seizures Endocrine Medical History: Reports: Diabetes Mellitus Type 2 Renal/ Medical History: Reports: None Malignancy Medical History: Reports: Ovarian Cancer - ? bilateral oophorectomy for ovarian mass at [facility], [facility]; no radiation/chemo GI Medical History: Reports: None Musculoskeltal Medical History: Reports: Arthritis Psychiatric Medical History: Reports: Tobacco Dependency Traumatic Medical History: Reports: None Hematology: Denies: Anemia Infectious Medical History: Reports: None Past Surgical History Past Surgical History: Reports: Other - Bilateral oophorectomy Social History Information Source: Patient, Relative Lives with: Family Smoking Status: Current Every Day Smoker Cigarettes Packs Per Day: 1 Frequency of Alcohol Use: None Hx Recreational Drug Use: No Hx Prescription Drug Abuse: No - Advance Directive Resuscitation Status: Full Code Surrogate healthcare decision maker:: Patient's Family History Family History: Reviewed & Not Pertinent Parental Family History Reviewed: Yes Children Family History Reviewed: Yes Sibling(s) Family History Reviewed.: Yes Medication/Allergy Home Medications: Ascorbic Acid/Ascorbate Sodium [Vit C-Zoie Hips 500 mg Chew Tb] 500 mg PO DAILY 05/07/18 Calcium Citrate/Vitamin D3 [Calcitrate + Vit D Caplet] 1 each PO DAILY 05/07/18 Clopidogrel Bisulfate [Plavix] 75 mg PO DAILY 05/07/18 Fluticasone/Vilanterol [Breo Ellipta 100-25 Mcg INH] 1 each IH DAILY 05/07/18 Furosemide [Lasix] 40 mg PO ASDIR PRN 05/07/18 Imipramine HCl [Tofranil] 100 mg PO QHS 05/07/18 Nadolol [Corgard] 20 mg PO DAILY 05/07/18 Potassium Chloride [Klor-Con 10 Meq Capsule ER] 10 meq PO DAILY 05/07/18 Vit B Cmplx #9/FA/Vit C/Vit E [Renatabs Tablet] 1 each PO DAILY 05/07/18 Allopurinol [Zyloprim 100 mg Tablet] 2 tab PO DAILY 05/11/18 Isosorbide Mononitrate [Imdur 30 mg Tablet.er] 30 mg PO QHS 05/11/18 Sennosides [Senokotxtra] 17.2 mg PO QHS 05/11/18 Allergies/Adverse Reactions: No Known Allergies Allergy (Verified 05/11/18 10:03) Review of Systems Constitutional: PRESENT: fatigue, weakness. ABSENT: chills, fever(s), headache(s), weight gain, weight loss Eyes: ABSENT: visual disturbances Ears: ABSENT: hearing changes Cardiovascular: ABSENT: chest pain, dyspnea on exertion, edema, orthropnea, palpitations Respiratory: PRESENT: cough. ABSENT: hemoptysis Gastrointestinal: PRESENT: abdominal pain, constipation, nausea, vomiting. ABSENT: diarrhea, hematemesis, hematochezia Genitourinary: ABSENT: dysuria, hematuria Musculoskeletal: ABSENT: joint swelling Integumentary: ABSENT: rash, wounds Neurological: ABSENT: abnormal gait, abnormal speech, confusion, dizziness, focal weakness, syncope Psychiatric: ABSENT: anxiety, depression, homidical ideation, suicidal ideation Endocrine: ABSENT: cold intolerance, heat intolerance, polydipsia, polyuria Hematologic/Lymphatic: ABSENT: easy bleeding, easy bruising Physical Exam Vital Signs: Temp Pulse Resp BP Pulse Ox 98.2 F 27 H 130/68 H 97 08/03/19 16:08 08/03/19 16:01 08/03/19 16:00 08/03/19 16:01 Intake & Output 08/02/19 08/03/19 08/04/19 06:59 06:59 06:59 Weight 66.2 kg General appearance: PRESENT: no acute distress, cooperative, well-developed, well-nourished Head exam: PRESENT: atraumatic, normocephalic Eye exam: PRESENT: conjunctiva pale, EOMI, PERRLA. ABSENT: scleral icterus Mouth exam: PRESENT: moist, tongue midline Neck exam: ABSENT: carotid bruit, JVD, lymphadenopathy, thyromegaly Respiratory exam: PRESENT: clear to auscultation [place], symmetrical, unlabored. ABSENT: rales, rhonchi, wheezes Cardiovascular exam: PRESENT: RRR, +S1, +S2. ABSENT: diastolic murmur, rubs, systolic murmur Pulses: PRESENT: normal dorsalis pedis pul Vascular exam: PRESENT: normal capillary refill GI/Abdominal exam: PRESENT: distended, normal bowel sounds, organolmegaly - liver, soft, tenderness - RUQ. ABSENT: guarding, mass, rebound Rectal exam: PRESENT: deferred, fecal impaction, heme (+) stool. ABSENT: hemorrhoids Extremities exam: PRESENT: full ROM. ABSENT: calf tenderness, clubbing, pedal edema Neurological exam: PRESENT: alert, awake, oriented to person, oriented to place, CN II-XII grossly intact, other - Per daughter, patient has occasional forgetfulness but is oriented x4 at baseline. Currently patient is oriented to 1918 and president Josemanuel Barron.. ABSENT: oriented to time, oriented to situation, motor sensory deficit Psychiatric exam: PRESENT: appropriate affect, normal mood. ABSENT: homicidal ideation, suicidal ideation Skin exam: PRESENT: dry, intact, warm. ABSENT: cyanosis, rash Results Laboratory Results: 08/03/19 15:45 08/03/19 15:45 08/03/19 08/03/19 08/03/19 15:45 15:45 15:45 WBC 13.6 H RBC 3.42 L Hgb 9.9 L Hct 30.3 L MCV 89 MCH 28.8 MCHC 32.5 RDW 15.0 H Plt Count 517 H Seg Neutrophils % 79.7 H Carbonic Acid HCO3/H2CO3 Ratio ABG pH ABG pCO2 ABG pO2 ABG HCO3 ABG O2 Saturation ABG Base Excess FiO2 Sodium 138.4 Potassium 4.9 Chloride 106 Carbon Dioxide 23 Anion Gap 9 BUN 26 H Creatinine 1.42 H Est GFR ( Amer) 43 L Glucose 142 H Lactic Acid 4.3 H Calcium 11.8 H Total Bilirubin 1.0 AST 151 H Alkaline Phosphatase 191 H Total Protein 6.5 Albumin 3.6 Lipase 573.9 H 08/03/19 16:36 WBC RBC Hgb Hct MCV MCH MCHC RDW Plt Count Seg Neutrophils % Carbonic Acid 0.99 L HCO3/H2CO3 Ratio 20:1 ABG pH 7.40 ABG pCO2 33.0 L ABG pO2 79.5 L ABG HCO3 19.8 L ABG O2 Saturation 95.9 ABG Base Excess -4.6 FiO2 ROOM AIR Sodium Potassium Chloride Carbon Dioxide Anion Gap BUN Creatinine Est GFR ( Amer) Glucose Lactic Acid Calcium Total Bilirubin AST Alkaline Phosphatase Total Protein Albumin Lipase 08/03/19 15:45 Troponin I < 0.012 Impressions: Chest X-Ray 08/03/19 14:50 IMPRESSION: No focal airspace disease. Ectatic atherosclerotic aorta measuring up to 3.[address] 08/03/19 15:24 IMPRESSION: No acute intracranial hemorrhage or acute territorial infarct. Abdomen/Pelvis CT 08/03/19 15:26 IMPRESSION: 1. Suspicious findings in the chest. Adenopathy and at least 1 right lower lobe soft tissue nodule measuring over 2 cm. 2. Suspicious findings in the liver. Numerous masses are consistent with metastatic disease. 3. Suspicious bilateral adrenal nodules. Assessment and Plan - Diagnosis (1) Acute encephalopathy Is this a current diagnosis for this admission?: Yes Plan: Likely multifactorial secondary to acute illness (nausea/vomiting), dehydration resulting in JOHNSON, and underlying mild dementia (oriented at baseline but forgetful). Head CT was negative for acute finding; if encephalopathic does not improve, will need to consider MRI imaging to evaluate for metastasis. Supportive care. Fall precautions. Correction of possible offending causes. (2) JOHNSON (acute kidney injury) Is this a current diagnosis for this admission?: Yes Plan: Mild JOHNSON with Creatinine 1.42/BUN 26. Has received 1 L normal saline bolus by ED provider. We will continue gentle IV fluids overnight. Avoid nephrotoxic medications as able. Follow-up chemistry. (3) Liver masses Is this a current diagnosis for this admission?: Yes Plan: Numerous hypodense masses throughout the liver consistent with metastatic disease. LFTs are elevated. Lipase elevated. Carcinoembryonic antigen elevated 43.[address] Sim today; will require outpatient work-up once medically stable for discharge and cleared from COVID-19. (4) Lung nodule Is this a current diagnosis for this admission?: Yes Plan: Incidentally found on CT abdomen. Patient's family member confirmed that she is a continuous 1 pack/day smoker. Discussed with Dr. Sim; will need outpatient work-up. May benefit from contrasted CT of Chest; unfortunately received contrast dye today for ABD CT and is now requiring COVID rule out. (5) Diabetes Qualifiers: Diabetes mellitus type: type 2 Is this a current diagnosis for this admission?: Yes Plan: Historical med record show a history of diabetes mellitus. Random glucose 142 today. We will check A1c with a.m. lab work. Currently on clear liquid diet. Accu-Cheks before meals and at bedtime with Humalog for sliding scale coverage. Hypoglycemia protocol in place. (6) Anemia Qualifiers: Anemia type: unspecified type Qualified Code(s): D64.9 - Anemia, unspecified Is this a current diagnosis for this admission?: Yes Plan: Unclear etiology, however, strong suspicion that this is related to metastatic disease. Patient did have one episode of emesis; denies coffee-ground or black substance. She further denies melena or hematochezia. She is noted to be forgetful and somewhat confused. Guaiac was positive, no hemorrhoids noted, however with a hard/large ball of stool in rectum. She will be receiving IV fluids overnight. Start on PPI. Follow-up CBC. GI is consulted; may undertake EGD/colonoscopy once COVID-19 ruled out. (7) GI bleed Qualifiers: GI bleed type/associated pathology: unspecified gastrointestinal hemorrhage type Qualified Code(s): K92.2 - Gastrointestinal hemorrhage, unspecified Is this a current diagnosis for this admission?: Yes Plan: Low suspicion for acute GI bleeding as the source of her anemia. Management as above. (8) Fecal impaction Is this a current diagnosis for this admission?: Yes Plan: Fleets enema x1. Colace twice daily. Milk of mag daily as needed. - Plan Summary Summary: Due to the patient's report of shortness of breath/cough, she is being ruled out for COVID-19. I have low suspicion for COVID; it is more likely that this is related to her underlying COPD and continuous tobacco dependence. Could also be complicated by her new finding of lung nodules with adenopathy and liver masses/abdominal fullness limiting her diaphragmatic excursion. Primary focus will be evaluating her anemia/ruling out acute GI bleeding. Once determined to be medically stable for discharge, patient will be referred to hematology/oncology for outpatient work-up of her lung and liver masses. - Time Time Spent with patient: 35 or more minutes Medications reviewed and adjusted accordingly: Yes Anticipated discharge: Home Within: within 48 hours
[2019-08-03] MEDS: PANTOPRAZOLE SODIUM 40 MG VIAL IV SCH (22:10)
[2019-08-03] MEDS: INSULIN LISPRO 100 UNIT/ML 3 ML VIAL SUBCUT SCH (22:30)
[2019-08-04] MEDS ORDERED: ALBUTEROL SULFATE HFA (90 MCG/PUFF) 8 GM MDI IH SCH
[2019-08-04] MEDS: ALBUTEROL SULFATE HFA (90 MCG/PUFF) 200 PUFF/8.5 GM MDI IH SCH ×4 (00:15→18:42)
--- NOTE | 2019-08-04 07:24 | EKG REPORT ---
SEVERITY:- ABNORMAL ECG - SINUS RHYTHM VENTRICULAR TRIGEMINY : Confirmed by: Alex Hinds 04-Aug-2019 07:24:22
[2019-08-04 07:27] LABS: HEMATOCRIT 24.3 % (36.0-47.0); MEAN CORPUSCULAR HEMOGLOBIN 28.7 pg (27.0-33.4); MEAN CORPUSCULAR HGB CONC 32.8 g/dL (32.0-36.0); MEAN CORPUSCULAR VOLUME 87 fl (80-97); PLATELET COUNT 438 10^3/uL (150-450); RED BLOOD COUNT 2.78 10^6/uL (3.72-5.28); RED CELL DISTRIBUTION WIDTH 14.3 % (11.5-14.0); WHITE BLOOD COUNT 13.4 10^3/uL (4.0-10.5)
[2019-08-04 07:49] LABS: ANION GAP 6 (5-19); BLOOD UREA NITROGEN 31 mg/dL (7-20); CALCIUM 10.7 mg/dL (8.4-10.2); CARBON DIOXIDE 24 mmol/L (22-30); CHLORIDE 108 mmol/L (98-107); GLUCOSE 83 mg/dL (75-110); POTASSIUM 5.3 mmol/L (3.6-5.0)
--- NOTE | 2019-08-04 08:39 | PDOC PROGRESS REPORT ---
Subjective Progress Note for:: 08/04/19 Subjective:: no significant changes overnight patient currently isolation unit until testing for Covid 19 completed elevated CEA as noted also having fecal impaction patient likely will need both EGD and now colonoscopy in light of new findings rule out source of metastasis at this point may want to consider starting the prep process so that is testing is negative, will can expedite procedures Reason For Visit: ACUTE ENCEPHALOPATHY,ABDOMINAL PAIN Physical Exam Vital Signs: Temp Pulse Resp BP Pulse Ox 98.0 F 96 19 157/51 H 97 08/03/19 23:50 08/04/19 07:00 08/03/19 23:50 08/03/19 23:50 08/03/19 23:50 Intake & Output 08/03/19 08/04/19 08/05/19 06:59 06:59 06:59 Intake Total 260 Balance 260 Weight 68.5 kg General appearance: PRESENT: mild distress, well-developed, well-nourished Head exam: PRESENT: atraumatic, normocephalic Eye exam: PRESENT: EOMI, PERRLA. ABSENT: scleral icterus Mouth exam: PRESENT: moist, neck supple Throat exam: ABSENT: tonsillar exudate, tonsillogmegaly Neck exam: ABSENT: meningismus, tenderness, thyromegaly Respiratory exam: PRESENT: symmetrical, unlabored. ABSENT: tachypnea, wheezes Cardiovascular exam: PRESENT: RRR, +S1, +S2 GI/Abdominal exam: PRESENT: soft. ABSENT: rebound, rigid, tenderness Extremities exam: ABSENT: joint swelling Musculoskeletal exam: PRESENT: full ROM Neurological exam: PRESENT: oriented to time, oriented to situation, CN II-XII grossly intact Focused psych exam: ABSENT: restlessness Skin exam: PRESENT: normal color. ABSENT: mottled, pallor, urticaria, vesicles Results Laboratory Results: 08/04/19 06:37 08/04/19 06:37 08/03/19 08/03/19 08/03/19 15:45 15:45 15:45 WBC 13.6 H RBC 3.42 L Hgb 9.9 L Hct 30.3 L MCV 89 MCH 28.8 MCHC 32.5 RDW 15.0 H Plt Count 517 H Seg Neutrophils % 79.7 H Carbonic Acid HCO3/H2CO3 Ratio ABG pH ABG pCO2 ABG pO2 ABG HCO3 ABG O2 Saturation ABG Base Excess FiO2 Sodium 138.4 Potassium 4.9 Chloride 106 Carbon Dioxide 23 Anion Gap 9 BUN 26 H Creatinine 1.42 H Est GFR ( Amer) 43 L Glucose 142 H Lactic Acid 4.3 H Calcium 11.8 H Total Bilirubin 1.0 AST 151 H Alkaline Phosphatase 191 H Total Protein 6.5 Albumin 3.6 Lipase 573.9 H TSH 08/03/19 08/03/19 08/03/19 16:36 17:45 20:45 WBC RBC Hgb Hct MCV MCH MCHC RDW Plt Count Seg Neutrophils % Carbonic Acid 0.99 L HCO3/H2CO3 Ratio 20:1 ABG pH 7.40 ABG pCO2 33.0 L ABG pO2 79.5 L ABG HCO3 19.8 L ABG O2 Saturation 95.9 ABG Base Excess -4.6 FiO2 ROOM AIR Sodium Potassium Chloride Carbon Dioxide Anion Gap BUN Creatinine Est GFR ( Amer) Glucose Lactic Acid 2.9 H 2.8 H Calcium Total Bilirubin AST Alkaline Phosphatase Total Protein Albumin Lipase TSH 08/04/19 08/04/19 08/04/19 06:37 06:37 06:37 WBC 13.4 H RBC 2.78 L Hgb 8.0 L Hct 24.3 L MCV 87 MCH 28.7 MCHC 32.8 RDW 14.3 H Plt Count 438 Seg Neutrophils % Carbonic Acid HCO3/H2CO3 Ratio ABG pH ABG pCO2 ABG pO2 ABG HCO3 ABG O2 Saturation ABG Base Excess FiO2 Sodium 137.7 Potassium 5.3 H Chloride 108 H Carbon Dioxide 24 Anion Gap 6 BUN 31 H Creatinine 1.45 H Est GFR ( Amer) 42 L Glucose 83 Lactic Acid Calcium 10.7 H Total Bilirubin AST Alkaline Phosphatase Total Protein Albumin Lipase TSH 3.51 08/03/19 15:45 Troponin I < 0.012 Impressions: Chest X-Ray 08/03/19 14:50 IMPRESSION: No focal airspace disease. Ectatic atherosclerotic aorta measuring up to 3.[address] 08/03/19 15:24 IMPRESSION: No acute intracranial hemorrhage or acute territorial infarct. Abdomen/Pelvis CT 08/03/19 15:26 IMPRESSION: 1. Suspicious findings in the chest. Adenopathy and at least 1 right lower lobe soft tissue nodule measuring over 2 cm. 2. Suspicious findings in the liver. Numerous masses are consistent with metastatic disease. 3. Suspicious bilateral adrenal nodules. Assessment & Plan - Diagnosis (1) Anemia Qualifiers: Anemia type: unspecified type Qualified Code(s): D64.9 - Anemia, unspecified Is this a current diagnosis for this admission?: Yes Plan: work up as outpatient but while in house, once we can exclude pulmonary infection due to possible Covid 19, then need to proceed with GI work up to include both an EGD and colonoscopy will discuss with hostpitalist to see if prep can be started early so that we can expedite the work up (2) GI bleed Qualifiers: GI bleed type/associated pathology: unspecified gastrointestinal hemorrhage type Qualified Code(s): K92.2 - Gastrointestinal hemorrhage, unspecified Is this a current diagnosis for this admission?: Yes Plan: nausea and vomiting with noted coffee ground emesis will need EGD will schedule as soon as testing is completed - Time Time Spent with patient: 15-24 minutes
[2019-08-04] MEDS ORDERED: NORMAL SALINE 250 ML IV PRN ×2 (08:57)
[2019-08-04] MEDS ORDERED: HYDRALAZINE HCL INJ/PF 20 MG/1 ML SDV IV PRN (09:00)
[2019-08-04] MEDS ORDERED: BISACODYL 10 MG SUPP.RECT PR ONE (09:30)
[2019-08-04] MEDS: PANTOPRAZOLE SODIUM 40 MG VIAL IV SCH ×2 (10:30→21:35)
[2019-08-04] MEDS: DOCUSATE SODIUM 100 MG CAPSULE PO SCH ×2 (10:30→18:40)
[2019-08-04] MEDS: NA PHOS,M-B/NA PHOS,DI-BA (ADULT) 133 ML ENEMA PR SCH (10:30)
[2019-08-04] MEDS: INSULIN LISPRO 100 UNIT/ML 3 ML VIAL SUBCUT SCH ×3 (11:43→21:35)
--- NOTE | 2019-08-04 14:35 | PDOC PROGRESS REPORT ---
Subjective Progress Note for:: 08/04/19 Subjective:: PHILLIP WESLEY is a 79 year old female With a past medical history significant for CVA without deficit, COPD, hypertension, tobacco dependence with continuous use who was admitted 08/03/19 for acute encephalopathy, JOHNSON, GI bleed, lung and liver masses. Patient was seen on afternoon rounds. She was found resting in bed, comfortably, on room air. She is alert and oriented to self, place, year but was unable to name the president. She was unable to describe what led to her admission yesterday and throughout our conversation became somewhat repetitive and confused. Despite this, she has improved mentation as compared to yesterday. She does continue to have abdominal discomfort and slight nausea but without emesis. She has not yet had a bowel movement. She further denies fever, chest pain, dyspnea, cough. She has no questions or concerns at this time. Reviewed plan of care with nursing. Reason For Visit: ACUTE ENCEPHALOPATHY,ABDOMINAL PAIN Physical Exam Vital Signs: Temp Pulse Resp BP Pulse Ox 97.7 F 91 17 128/82 H 97 08/04/19 11:27 08/04/19 11:27 08/04/19 11:27 08/04/19 11:27 08/04/19 11:27 Intake & Output 08/03/19 08/04/19 08/05/19 06:59 06:59 06:59 Intake Total 260 120 Balance 260 120 Weight 68.5 kg General appearance: PRESENT: no acute distress, cooperative, well-developed, well-nourished Head exam: PRESENT: atraumatic, normocephalic Eye exam: PRESENT: conjunctiva pale, EOMI, PERRLA. ABSENT: scleral icterus Ear exam: PRESENT: normal external ear exam Mouth exam: PRESENT: moist, tongue midline Respiratory exam: PRESENT: clear to auscultation [place], symmetrical, unlabored. ABSENT: rales, rhonchi, wheezes Cardiovascular exam: PRESENT: RRR, +S1, +S2. ABSENT: diastolic murmur, rubs, systolic murmur Pulses: PRESENT: normal dorsalis pedis pul Vascular exam: PRESENT: normal capillary refill GI/Abdominal exam: PRESENT: diminished bowel sounds, organolmegaly, soft, tenderness - Right upper quadrant. ABSENT: distended, guarding, mass, rebound Rectal exam: PRESENT: deferred Extremities exam: PRESENT: full ROM. ABSENT: calf tenderness, clubbing, pedal edema Neurological exam: PRESENT: alert, awake, oriented to person, oriented to place, oriented to time, CN II-XII grossly intact, other - Oriented to president Josemanuel Barron. Improved mentation as compared to yesterday.. ABSENT: oriented to situation, motor sensory deficit Psychiatric exam: PRESENT: appropriate affect, normal mood. ABSENT: homicidal ideation, suicidal ideation Skin exam: PRESENT: dry, intact, warm. ABSENT: cyanosis, rash Results Laboratory Results: 08/04/19 06:37 08/04/19 06:37 08/03/19 08/03/19 08/03/19 15:45 15:45 15:45 WBC 13.6 H RBC 3.42 L Hgb 9.9 L Hct 30.3 L MCV 89 MCH 28.8 MCHC 32.5 RDW 15.0 H Plt Count 517 H Seg Neutrophils % 79.7 H Carbonic Acid HCO3/H2CO3 Ratio ABG pH ABG pCO2 ABG pO2 ABG HCO3 ABG O2 Saturation ABG Base Excess FiO2 Sodium 138.4 Potassium 4.9 Chloride 106 Carbon Dioxide 23 Anion Gap 9 BUN 26 H Creatinine 1.42 H Est GFR ( Amer) 43 L Glucose 142 H Lactic Acid 4.3 H Calcium 11.8 H Total Bilirubin 1.0 AST 151 H Alkaline Phosphatase 191 H Total Protein 6.5 Albumin 3.6 Lipase 573.9 H TSH Blood Type Antibody Screen 08/03/19 08/03/19 08/03/19 16:36 17:45 20:45 WBC RBC Hgb Hct MCV MCH MCHC RDW Plt Count Seg Neutrophils % Carbonic Acid 0.99 L HCO3/H2CO3 Ratio 20:1 ABG pH 7.40 ABG pCO2 33.0 L ABG pO2 79.5 L ABG HCO3 19.8 L ABG O2 Saturation 95.9 ABG Base Excess -4.6 FiO2 ROOM AIR Sodium Potassium Chloride Carbon Dioxide Anion Gap BUN Creatinine Est GFR ( Amer) Glucose Lactic Acid 2.9 H 2.8 H Calcium Total Bilirubin AST Alkaline Phosphatase Total Protein Albumin Lipase TSH Blood Type Antibody Screen 08/04/19 08/04/19 08/04/19 06:37 06:37 06:37 WBC 13.4 H RBC 2.78 L Hgb 8.0 L Hct 24.3 L MCV 87 MCH 28.7 MCHC 32.8 RDW 14.3 H Plt Count 438 Seg Neutrophils % Carbonic Acid HCO3/H2CO3 Ratio ABG pH ABG pCO2 ABG pO2 ABG HCO3 ABG O2 Saturation ABG Base Excess FiO2 Sodium 137.7 Potassium 5.3 H Chloride 108 H Carbon Dioxide 24 Anion Gap 6 BUN 31 H Creatinine 1.45 H Est GFR ( Amer) 42 L Glucose 83 Lactic Acid Calcium 10.7 H Total Bilirubin AST Alkaline Phosphatase Total Protein Albumin Lipase TSH 3.51 Blood Type Antibody Screen 08/04/19 09:30 WBC RBC Hgb Hct MCV MCH MCHC RDW Plt Count Seg Neutrophils % Carbonic Acid HCO3/H2CO3 Ratio ABG pH ABG pCO2 ABG pO2 ABG HCO3 ABG O2 Saturation ABG Base Excess FiO2 Sodium Potassium Chloride Carbon Dioxide Anion Gap BUN Creatinine Est GFR ( Amer) Glucose Lactic Acid Calcium Total Bilirubin AST Alkaline Phosphatase Total Protein Albumin Lipase TSH Blood Type A NEGATIVE Antibody Screen POSITIVE 08/03/19 15:45 Troponin I < 0.012 Impressions: Chest X-Ray 08/03/19 14:50 IMPRESSION: No focal airspace disease. Ectatic atherosclerotic aorta measuring up to 3.[address] 08/03/19 15:24 IMPRESSION: No acute intracranial hemorrhage or acute territorial infarct. Abdomen/Pelvis CT 08/03/19 15:26 IMPRESSION: 1. Suspicious findings in the chest. Adenopathy and at least 1 right lower lobe soft tissue nodule measuring over 2 cm. 2. Suspicious findings in the liver. Numerous masses are consistent with metastatic disease. 3. Suspicious bilateral adrenal nodules. Assessment and Plan - Diagnosis (1) Acute encephalopathy Is this a current diagnosis for this admission?: Yes Plan: Slight improvement today. Acute metabolic encephalopathy is likely multifactorial secondary to acute illness (nausea/vomiting), dehydration resulting in JOHNSON, and underlying mild dementia (oriented at baseline but forgetful). Head CT was negative for acute finding; if encephalopathic does not improve, will need to consider MRI imaging to evaluate for metastasis. Supportive care. Fall precautions. Correction of possible offending causes. (2) JOHNSON (acute kidney injury) Is this a current diagnosis for this admission?: Yes Plan: Mild JOHNSON with Creatinine 1.42/BUN 26. Received gentle IV fluids. Continue to encourage p.o. fluids. Avoid nephrotoxic medications as able. Follow-up chemistry. (3) Liver masses Is this a current diagnosis for this admission?: Yes Plan: Numerous hypodense masses throughout the liver consistent with metastatic disease. LFTs are elevated. Lipase elevated. Carcinoembryonic antigen elevated 43.[address] Sim today; will require outpatient work-up once medically stable for discharge and cleared from COVID-19. (4) Lung nodule Is this a current diagnosis for this admission?: Yes Plan: Incidentally found on CT abdomen. Patient's family member confirmed that she is a continuous 1 pack/day smoker. Discussed with Dr. Sim; will need outpatient work-up. May benefit from contrasted CT of Chest; unfortunately received contrast dye today for ABD CT and is now requiring COVID rule out. (5) Diabetes Qualifiers: Diabetes mellitus type: type 2 Is this a current diagnosis for this admission?: Yes Plan: Historical med record show a history of diabetes mellitus. Random glucose 142 today. Hemoglobin A1c 6.0% Currently on clear liquid diet. Accu-Cheks before meals and at bedtime with Humalog for sliding scale coverage. Hypoglycemia protocol in place. (6) Anemia Qualifiers: Anemia type: unspecified type Qualified Code(s): D64.9 - Anemia, unspecified Is this a current diagnosis for this admission?: Yes Plan: Hemoglobin drifting down today; partly related to hemodilution. Multifactorial secondary to GI bleed and new diagnosis of metastatic disease. Patient did have one episode of emesis; denies coffee-ground or black substance. She further denies melena or hematochezia. She is noted to be forgetful and somewhat confused. Guaiac was positive, no hemorrhoids noted, however with a hard/large ball of stool in rectum. Will receive 1 unit of PRBC Continue on PPI. Follow-up CBC. GI is consulted; plan for EGD/colonoscopy once COVID-19 ruled out. (7) GI bleed Qualifiers: GI bleed type/associated pathology: unspecified gastrointestinal hemorrhage type Qualified Code(s): K92.2 - Gastrointestinal hemorrhage, unspecified Is this a current diagnosis for this admission?: Yes Plan: GI is consulted; Dr. Pereyra plans for EGD and colonoscopy on Friday once COVID testing is ruled her out. Continue on Protonix. Clear liquid diet. Extended bowel prep due to fecal impaction. (8) Fecal impaction Is this a current diagnosis for this admission?: Yes Plan: Dulcolax suppository x1, Fleets enema x1, Colace twice daily, and Milk of mag daily as needed without result. Will start extended bowel prep. - Plan Summary Summary: Due to the patient's report of shortness of breath/cough, she is being ruled out for COVID-19. I have low suspicion for COVID; it is more likely that this is related to her underlying COPD and continuous tobacco dependence. Could also be complicated by her new finding of lung nodules with adenopathy and liver mas ses/abdominal fullness limiting her diaphragmatic excursion. Primary focus will be evaluating her anemia/ruling out acute GI bleeding. Once determined to be medically stable for discharge, patient will be referred to hematology/oncology for outpatient work-up of her lung and liver masses. - Time Time Spent with patient: 25-34 minutes Medications reviewed and adjusted accordingly: Yes Anticipated discharge: Home Within: within 72 hours
[2019-08-04] MEDS ORDERED: PEG 3350/NA SULF,BICARB,CL/KCL 4000 ML PO ONE (15:30)
[2019-08-04 17:18] LABS: APPEARANCE,URINE SLIGHTLY-CLOUDY; BILIRUBIN,URINE NEGATIVE (NEGATIVE); COLOR,URINE YELLOW; GLUCOSE, URINE NEGATIVE (NEGATIVE); KETONES,URINE NEGATIVE (NEGATIVE); LEUKOCYTE ESTERASE,URINE NEGATIVE (NEGATIVE); NITRITE,URINE NEGATIVE (NEGATIVE); PROTEIN,URINE 30 mg/dL (NEGATIVE); URINE SPECIFIC GRAVITY 1.036; UROBILINOGEN,URINE NEGATIVE mg/dL (<2.0)
[2019-08-04] MEDS ORDERED: FUROSEMIDE INJ/PF 20 MG/2 ML SDV IV ONE (19:00)
[2019-08-04 21:28] LABS: HEMATOCRIT 29.2 % (36.0-47.0); HEMOGLOBIN 9.9 g/dL (12.0-15.5); MEAN CORPUSCULAR HEMOGLOBIN 29.8 pg (27.0-33.4); MEAN CORPUSCULAR VOLUME 88 fl (80-97); PLATELET COUNT 429 10^3/uL (150-450); RED BLOOD COUNT 3.33 10^6/uL (3.72-5.28); RED CELL DISTRIBUTION WIDTH 15.2 % (11.5-14.0); WHITE BLOOD COUNT 15.7 10^3/uL (4.0-10.5)
[2019-08-04] MEDS: ISOSORBIDE MONONITRATE 30 MG TAB.ER.24H PO SCH (21:35)
[2019-08-05 04:06] LABS: HEMATOCRIT 28.2 % (36.0-47.0); HEMOGLOBIN 9.8 g/dL (12.0-15.5); MEAN CORPUSCULAR HGB CONC 34.7 g/dL (32.0-36.0); MEAN CORPUSCULAR VOLUME 87 fl (80-97); PLATELET COUNT 444 10^3/uL (150-450); RED BLOOD COUNT 3.27 10^6/uL (3.72-5.28); WHITE BLOOD COUNT 13.5 10^3/uL (4.0-10.5)
[2019-08-05 04:19] LABS: ANION GAP 8 (5-19); BLOOD UREA NITROGEN 31 mg/dL (7-20); CALCIUM 9.8 mg/dL (8.4-10.2); CARBON DIOXIDE 26 mmol/L (22-30); CHLORIDE 103 mmol/L (98-107); GLUCOSE 96 mg/dL (75-110)
[2019-08-05 04:48] LABS: POTASSIUM 3.9 mmol/L (3.6-5.0)
[2019-08-05] MEDS: ALBUTEROL SULFATE HFA (90 MCG/PUFF) 200 PUFF/8.5 GM MDI IH SCH ×5 (06:39→23:46)
[2019-08-05] MEDS ORDERED: ONDANSETRON HCL INJ/PF 4 MG/2 ML SDV IV PRN (07:30)
[2019-08-05] MEDS: INSULIN LISPRO 100 UNIT/ML 3 ML VIAL SUBCUT SCH ×4 (08:45→22:41)
--- NOTE | 2019-08-05 09:01 | PDOC PROGRESS REPORT ---
Subjective Progress Note for:: 08/05/19 Subjective:: patient had started bowel prep last night anticipate results of Covid19 testing later today will put patient on schedule for now no significant overnight event electrolytes noted to have improve Reason For Visit: ACUTE ENCEPHALOPATHY,GI BLEED Physical Exam Vital Signs: Temp Pulse Resp BP Pulse Ox 97.9 F 97 22 H 152/52 H 100 08/05/19 08:16 08/05/19 08:16 08/05/19 08:16 08/05/19 08:16 08/05/19 08:16 Intake & Output 08/04/19 08/05/19 08/06/19 06:59 06:59 06:59 Intake Total 260 1620 Output Total 200 Balance 260 1420 Weight 68.5 kg 68.5 kg General appearance: PRESENT: no acute distress, well-developed Head exam: PRESENT: atraumatic, normocephalic Eye exam: PRESENT: EOMI, PERRLA. ABSENT: periorbital swelling, scleral icterus Mouth exam: PRESENT: neck supple Throat exam: ABSENT: tonsillar exudate, tonsillogmegaly Neck exam: ABSENT: meningismus, tenderness, thyromegaly Respiratory exam: PRESENT: symmetrical, unlabored. ABSENT: tachypnea, wheezes Cardiovascular exam: PRESENT: RRR, +S1, +S2 GI/Abdominal exam: PRESENT: soft. ABSENT: rebound, rigid, tenderness Musculoskeletal exam: PRESENT: full ROM Neurological exam: PRESENT: oriented to time, oriented to situation Focused psych exam: ABSENT: restlessness Skin exam: PRESENT: normal color. ABSENT: mottled, pallor, urticaria, vesicles Results Laboratory Results: 08/05/19 03:37 08/05/19 03:37 08/03/19 08/04/19 08/04/19 16:55 09:30 21:19 WBC 15.7 H RBC 3.33 L Hgb 9.9 L Hct 29.2 L MCV 88 MCH 29.8 MCHC 34.0 RDW 15.2 H Plt Count 429 Sodium Potassium Chloride Carbon Dioxide Anion Gap BUN Creatinine Est GFR ( Amer) Glucose Calcium Urine Color YELLOW Urine Appearance SLIGHTLY-CLOUDY Urine pH 5.0 Ur Specific [place] 1.036 Urine Protein 30 H Urine Glucose (UA) NEGATIVE Urine Ketones NEGATIVE Urine Blood NEGATIVE Urine Nitrite NEGATIVE Ur Leukocyte Esterase NEGATIVE Urine WBC (Auto) 1 Urine RBC (Auto) 1 Blood Type A NEGATIVE Antibody Screen POSITIVE 08/05/19 08/05/19 03:37 03:37 WBC 13.5 H RBC 3.27 L Hgb 9.8 L Hct 28.2 L MCV 87 MCH 30.0 MCHC 34.7 RDW 15.0 H Plt Count 444 Sodium 136.5 L Potassium 3.9 D Chloride 103 Carbon Dioxide 26 Anion Gap 8 BUN 31 H Creatinine 1.41 H Est GFR ( Amer) 44 L Glucose 96 Calcium 9.8 Urine Color Urine Appearance Urine pH Ur Specific [place] Urine Protein Urine Glucose (UA) Urine Ketones Urine Blood Urine Nitrite Ur Leukocyte Esterase Urine WBC (Auto) Urine RBC (Auto) Blood Type Antibody Screen 08/03/19 15:45 Troponin I < 0.012 Impressions: Chest X-Ray 08/03/19 14:50 IMPRESSION: No focal airspace disease. Ectatic atherosclerotic aorta measuring up to 3.[address] 08/03/19 15:24 IMPRESSION: No acute intracranial hemorrhage or acute territorial infarct. Abdomen/Pelvis CT 08/03/19 15:26 IMPRESSION: 1. Suspicious findings in the chest. Adenopathy and at least 1 right lower lobe soft tissue nodule measuring over 2 cm. 2. Suspicious findings in the liver. Numerous masses are consistent with meta static disease. 3. Suspicious bilateral adrenal nodules. Assessment & Plan - Diagnosis (1) Anemia Qualifiers: Anemia type: unspecified type Qualified Code(s): D64.9 - Anemia, unspecifie d Is this a current diagnosis for this admission?: Yes Plan: elevated CEA along with liver with evidence of metastatic disease will schedule patient for full GI work up patient to have EGD and colonoscopy done tomorrow am (2) GI bleed Qualifiers: GI bleed type/associated pathology: unspecified gastrointestinal hemorrhage type Qualified Code(s): K92.2 - Gastrointestinal hemorrhage, unspecified Is this a current diagnosis for this admission?: Yes Plan: hgb remains stable for now continue to monitor and transfuse as necessary monitor lytes during colon prep - Time Time Spent with patient: 15-24 minutes
[2019-08-05] MEDS: DOCUSATE SODIUM 100 MG CAPSULE PO SCH ×2 (10:30→18:25)
[2019-08-05] MEDS: NA PHOS,M-B/NA PHOS,DI-BA (ADULT) 133 ML ENEMA PR SCH (10:30)
[2019-08-05] MEDS: PANTOPRAZOLE SODIUM 40 MG VIAL IV SCH ×2 (10:30→22:43)
--- NOTE | 2019-08-05 17:39 | PDOC PROGRESS REPORT ---
Subjective Progress Note for:: 08/05/19 Subjective:: PHILLIP WESLEY is a 79 year old female With a past medical history significant for CVA without deficit, COPD, hypertension, tobacco dependence with continuous use who was admitted 08/03/19 for acute encephalopathy, JOHNSON, GI bleed, lung and liver masses. Patient was seen on afternoon rounds. She was found resting in bed, comfortably, on room air. She is A&Ox4, but remains forgetful and somewhat repetitive in her questions and statements. Overall improved. She does continue to have abdominal discomfort and slight nausea but without emesis. Multiple bowel movements today, though with semi-formed stools. Will need to repeat bowel prep. She denies fever, chest pain, dyspnea, cough. She has no questions or concerns at this time. Reviewed plan of care with nursing. Reason For Visit: ACUTE ENCEPHALOPATHY,GI BLEED Physical Exam Vital Signs: Temp Pulse Resp BP Pulse Ox 98.6 F 95 16 155/49 H 95 08/05/19 16:04 08/05/19 16:04 08/05/19 16:04 08/05/19 16:04 08/05/19 16:04 Intake & Output 08/04/19 08/05/19 08/06/19 06:59 06:59 06:59 Intake Total 260 1620 1054 Output Total 200 Balance 260 1420 1054 Weight 68.5 kg 68.5 kg General appearance: PRESENT: no acute distress, cooperative, well-developed, w ell-nourished Head exam: PRESENT: atraumatic, normocephalic Eye exam: PRESENT: conjunctiva pink, EOMI, PERRLA. ABSENT: scleral icterus Mouth exam: PRESENT: moist, tongue midline Respiratory exam: PRESENT: clear to auscultation [place], symmetrical, unlabored. ABSENT: rales, rhonchi, wheezes Cardiovascular exam: PRESENT: RRR, +S1, +S2. ABSENT: diastolic murmur, rubs, systolic murmur Pulses: PRESENT: normal dorsalis pedis pul Vascular exam: PRESENT: normal capillary refill GI/Abdominal exam: PRESENT: normal bowel sounds, soft, tenderness - RUQ. ABSENT: distended, guarding, mass, organolmegaly, rebound Rectal exam: PRESENT: deferred Extremities exam: PRESENT: full ROM. ABSENT: calf tenderness, clubbing, pedal edema Neurological exam: PRESENT: alert, awake, oriented to person, oriented to place, oriented to time, oriented to situation, CN II-XII grossly intact, other - forgetful; overall improved. ABSENT: motor sensory deficit Psychiatric exam: PRESENT: appropriate affect, normal mood. ABSENT: homicidal ideation, suicidal ideation Skin exam: PRESENT: dry, intact, warm. ABSENT: cyanosis, rash Results Laboratory Results: 08/05/19 03:37 08/05/19 03:37 08/04/19 08/05/19 08/05/19 21:19 03:37 03:37 WBC 15.7 H 13.5 H RBC 3.33 L 3.27 L Hgb 9.9 L 9.8 L Hct 29.2 L 28.2 L MCV 88 87 MCH 29.8 30.0 MCHC 34.0 34.7 RDW 15.2 H 15.0 H Plt Count 429 444 Sodium 136.5 L Potassium 3.9 D Chloride 103 Carbon Dioxide 26 Anion Gap 8 BUN 31 H Creatinine 1.41 H Est GFR ( Amer) 44 L Glucose 96 Calcium 9.8 08/03/19 20:09 Throat Throat Culture - Final NORMAL NAFISA 08/03/19 15:45 Troponin I < 0.012 Impressions: Chest X-Ray 08/03/19 14:50 IMPRESSION: No focal airspace disease. Ectatic atherosclerotic aorta measuring up to 3.[address] 08/03/19 15:24 IMPRESSION: No acute intracranial hemorrhage or acute territorial infarct. Abdomen/Pelvis CT 08/03/19 15:26 IMPRESSION: 1. Suspicious findings in the chest. Adenopathy and at least 1 right lower lobe soft tissue nodule measuring over 2 cm. 2. Suspicious findings in the liver. Numerous masses are consistent with metastatic disease. 3. Suspicious bilateral adrenal nodules. Assessment and Plan - Diagnosis (1) Acute encephalopathy Is this a current diagnosis for this admission?: Yes Plan: Continued improvement today. Now A&Ox4. Acute metabolic encephalopathy is likely multifactorial secondary to acute illness (nausea/vomiting), dehydration resulting in JOHNSON, and underlying mild dementia (oriented at baseline but forgetful). Head CT was negative for acute finding; if encephalopathic does not improve, will need to consider MRI imaging to evaluate for metastasis. Supportive care. Fall precautions. Correction of possible offending causes. (2) JOHNSON (acute kidney injury) Is this a current diagnosis for this admission?: Yes Plan: Possibly at baseline and not w/ JOHNSON as initially thought. Cr/BUN are unchanged despite IVF and increased p.o. fluids. Received gentle IV fluids. Continue to encourage p.o. fluids. Avoid nephrotoxic medications as able. Follow-up chemistry. (3) Liver masses Is this a current diagnosis for this admission?: Yes Plan: Numerous hypodense masses throughout the liver consistent with metastatic disease. LFTs are elevated. Lipase elevated. Carcinoembryonic antigen elevated 43.[address] Sim. Have discussed with IR; if EGD/Colon are unrevealing, patient will have needle biopsy of liver mass on Friday. (4) Lung nodule Is this a current diagnosis for this admission?: Yes Plan: Incidentally found on CT abdomen. Patient's family member confirmed that she is a continuous 1 pack/day smoker. Discussed with Dr. Sim; will need outpatient work-up. May benefit from contrasted CT of Chest; unfortunately received contrast dye today for ABD CT and is now requiring COVID rule out. (5) Diabetes Qualifiers: Diabetes mellitus type: type 2 Is this a current diagnosis for this admission?: Yes Plan: Historical med record show a history of diabetes mellitus. Random glucose 142 today. Hemoglobin A1c 6.0% Currently on clear liquid diet. Accu-Cheks before meals and at bedtime with Humalog for sliding scale coverage. Hypoglycemia protocol in place. (6) Anemia Qualifiers: Anemia type: unspecified type Qualified Code(s): D64.9 - Anemia, unspecified Is this a current diagnosis for this admission?: Yes Plan: Now s/p 1 unit PRBC Hgb appears stable at this time. Guaiac was positive, no hemorrhoids noted, however with a hard/large ball of stool in rectum. Continue on PPI. Follow-up CBC. GI is consulted; plan for EGD/colonoscopy once COVID-19 ruled out. Heme/Onc consulted. (7) GI bleed Qualifiers: GI bleed type/associated pathology: unspecified gastrointestinal hemorrhage type Qualified Code(s): K92.2 - Gastrointestinal hemorrhage, unspecified Is this a current diagnosis for this admission?: Yes Plan: GI is consulted; Dr. Pereyra plans for EGD and colonoscopy on Friday once COVID testing is ruled her out. Continue on Protonix. Clear liquid diet. Extended bowel prep due to fecal impaction. (8) Fecal impaction Is this a current diagnosis for this admission?: Yes Plan: Improved. Continue bowel prep - Plan Summary Summary: Due to the patient's report of shortness of breath/cough, she is being ruled out for COVID-19. I have low suspicion for COVID; it is more likely that this is related to her underlying COPD and continuous tobacco dependence. Could also be complicated by her new finding of lung nodules with adenopathy and liver masses/abdominal fullness limiting her diaphragmatic excursion. Primary focus will be evaluating her anemia/ruling out acute GI bleeding. Once determined to be medically stable for discharge, patient will be referred to hematology/oncology for outpatient work-up of her lung and liver masses. - Time Time Spent with patient: 25-34 minutes Medications reviewed and adjusted accordingly: Yes Anticipated discharge: Home
[2019-08-05] MEDS ORDERED: PEG 3350/NA SULF,BICARB,CL/KCL 4000 ML PO ONE (18:30)
[2019-08-05] MEDS: ISOSORBIDE MONONITRATE 30 MG TAB.ER.24H PO SCH (22:43)
--- NOTE | 2019-08-06 00:34 | CDI QUERY ---
CDI Query CDI Review: Dear Provider: To better reflect your patients severity of illness, morbidity, and resource utilization Please specify and document in the Progress Notes and Discharge Summary if you are monitoring / treating / evaluating any of the following conditions: Query Clinical indicators Please, if known, clarify the acute encephalopathy: Metabolic encephalopathy Toxic encephalopathy Hepatic encephalopathy Unable to determine Other Per H&P: (1) Acute encephalopathy Likely multifactorial secondary to acute illness (nausea/vomiting), dehydration resulting in JOHNSON Labs; WBC 13.6 RBC 3.42 H/H 9.9/30.3 BUN / Cr 26 / 1.42 Lactic Acid 4.3 Lipase 573.9 AST 151 Alk phos 191 The terms probable, suspected, likely, possible or still to be ruled out may be used if you are unable to determine the exact nature of a condition. Thank you for your consideration, Clinical Documentation [facility] MARY Maya RN, BSN RN [email or web address] Office [phone] Office [phone]
[2019-08-06 04:54] LABS: HEMATOCRIT 27.1 % (36.0-47.0); HEMOGLOBIN 9.4 g/dL (12.0-15.5); MEAN CORPUSCULAR HEMOGLOBIN 30.1 pg (27.0-33.4); MEAN CORPUSCULAR HGB CONC 34.8 g/dL (32.0-36.0); MEAN CORPUSCULAR VOLUME 87 fl (80-97); PLATELET COUNT 362 10^3/uL (150-450); RED BLOOD COUNT 3.13 10^6/uL (3.72-5.28); RED CELL DISTRIBUTION WIDTH 14.9 % (11.5-14.0); WHITE BLOOD COUNT 12.1 10^3/uL (4.0-10.5)
[2019-08-06 05:13] LABS: ANION GAP 7 (5-19); BLOOD UREA NITROGEN 24 mg/dL (7-20); CALCIUM 9.1 mg/dL (8.4-10.2); CARBON DIOXIDE 29 mmol/L (22-30); CHLORIDE 100 mmol/L (98-107); GLUCOSE 99 mg/dL (75-110)
[2019-08-06 05:44] LABS: POTASSIUM 2.8 mmol/L (3.6-5.0)
[2019-08-06] MEDS: ALBUTEROL SULFATE HFA (90 MCG/PUFF) 200 PUFF/8.5 GM MDI IH SCH ×3 (06:48→17:22)
[2019-08-06] MEDS: POTASSIUM CHLORIDE 20 MEQ/50 ML RTU IV SCH ×2 (06:49→08:41)
[2019-08-06] MEDS ORDERED: POTASSIUM CHLORIDE 10 MEQ TABLET.ER PO ONE (07:00)
--- NOTE | 2019-08-06 07:04 | PDOC CONSULTATION ---
Consultation Consult Date: 08/06/19 Provider Consulted: JATINDER SANTANA Consult reason:: Hematology/Oncology consultation was requested for patient with abnormal CT consistent with new metastatic cancer. History of Present Illness Admission Date/PCP: 08/04/19 14:27 BLADIMIR JIMENEZ PA-C History of Present Illness: Consult was received, but due to COVID-19 restrictions, patient was not examined. I have reviewed the chart and discussed her care at length with Jeff Frey, hospitalist. PHILLIP WESLEY is a 79 year old female who presented to the ED with evidence of GI bleed. CT showed evidence of lung and liver masses consistent with metastatic cancer. She has been given blood transfusions and was found to have stool impaction. Past Medical History Cardiac Medical History: Reports: Hypertension Denies: Coronary Artery Disease, Myocardial Infarction Pulmonary Medical History: Reports: Chronic Obstructive Pulmonary Disease (COPD) Denies: Asthma, Bronchitis, Pneumonia EENT Medical History: Reports: None Neurological Medical History: Reports: Ischemic CVA Denies: Seizures Endocrine Medical History: Reports: Diabetes Mellitus Type 2 Renal/ Medical History: Reports: None Malignancy Medical History: Reports: Ovarian Cancer - ? bilateral oophorectomy for ovarian mass at [facility]; no radiation/chemo GI Medical History: Reports: None Musculoskeltal Medical History: Reports: Arthritis Psychiatric Medical History: Reports: Tobacco Dependency Traumatic Medical History: Reports: None Hematology: Denies: Anemia Infectious Medical History: Reports: None Past Surgical History Past Surgical History: Reports: Other - Bilateral oophorectomy Social History Lives with: Family Smoking Status: Current Every Day Smoker Cigarettes Packs Per Day: 1 Frequency of Alcohol Use: None Hx Recreational Drug Use: No Hx Prescription Drug Abuse: No - Advance Directive Resuscitation Status: Full Code Family History Family History: Reviewed & Not Pertinent Parental Family History Reviewed: No Children Family History Reviewed: No Sibling(s) Family History Reviewed.: No Medication/Allergy Home Medications: Clopidogrel Bisulfate [Plavix] 75 mg PO DAILY 05/07/18 Imipramine HCl [Tofranil] 100 mg PO QHS 05/07/18 Potassium Chloride [Klor-Con 10 Meq Capsule ER] 10 meq PO DAILY 05/07/18 Isosorbide Mononitrate [Imdur 30 mg Tablet.er] 30 mg PO QHS 05/11/18 Atorvastatin Calcium [Lipitor 40 mg Tablet] 40 mg PO QHS 08/03/19 Allergies/Adverse Reactions: No Known Allergies Allergy (Verified 05/11/18 10:03) Physical Exam Vital Signs: Temp Pulse Resp BP Pulse Ox 97.5 F 110 H 17 135/47 H 96 08/06/19 03:12 08/06/19 03:12 08/06/19 03:12 08/06/19 03:12 08/06/19 03:12 Intake & Output 08/04/19 08/05/19 08/06/19 06:59 06:59 06:59 Intake Total 260 1620 2011 Output Total 200 Balance 260 1420 2011 Weight 68.5 kg 68.5 kg Results Laboratory Results: 08/06/19 04:37 08/06/19 04:37 08/06/19 08/06/19 08/06/19 04:37 04:37 04:37 WBC 12.1 H RBC 3.13 L Hgb 9.4 L Hct 27.1 L MCV 87 MCH 30.1 MCHC 34.8 RDW 14.9 H Plt Count 362 Sodium 136.1 L Potassium 2.8 L* Chloride 100 Carbon Dioxide 29 Anion Gap 7 BUN 24 H Creatinine 1.33 H Est GFR ( Amer) 47 L Glucose 99 Calcium 9.1 Magnesium 1.9 08/03/19 20:09 Throat Throat Culture - Final NORMAL NAFISA 08/03/19 15:45 Troponin I < 0.012 Impressions: Chest X-Ray 08/03/19 14:50 IMPRESSION: No focal airspace disease. Ectatic atherosclerotic aorta measuring up to 3.[address] 08/03/19 15:24 IMPRESSION: No acute intracranial hemorrhage or acute territorial infarct. Abdomen/Pelvis CT 08/03/19 15:26 IMPRESSION: 1. Suspicious findings in the chest. Adenopathy and at least 1 right lower lobe soft tissue nodule measuring over 2 cm. 2. Suspicious findings in the liver. Numerous masses are consistent with metastatic disease. 3. Suspicious bilateral adrenal nodules. Assessment & Plan - Diagnosis (1) Fecal impaction Is this a current diagnosis for this admission?: Yes (2) GI bleed Qualifiers: GI bleed type/associated pathology: unspecified gastrointestinal hemorrhage type Qualified Code(s): K92.2 - Gastrointestinal hemorrhage, unspecified Is this a current diagnosis for this admission?: Yes Plan: She is scheduled for colonoscopy/EGD to rule out primary cancer. If negative, then IR to biopsy a liver lesions to obtain diagnosis. HGB is currently stable. I will check anemia labs to search for iron deficiency as well. Her CEA is elevated. (3) Liver masses Is this a current diagnosis for this admission?: Yes Plan: Again, if colonoscopy does not reveal pathology, then IR to biopsy a liver lesion for a definitive diagnosis. (4) Lung nodule Is this a current diagnosis for this admission?: Yes Plan: Await pathology from GI or liver. - Plan Summary Plan Summary: Once pathology available, I will make further recommendations.
[2019-08-06 07:21] LABS: ABSOLUTE RETICS # 0.089 10^6/uL (0.028-0.122); RETICULOCYTE COUNT (AUTO) 2.79 % (0.66-2.85)
[2019-08-06 08:35] LABS: FOLATE 4.25 ng/mL (>2.76)
[2019-08-06] MEDS: INSULIN LISPRO 100 UNIT/ML 3 ML VIAL SUBCUT SCH ×3 (08:37→16:34)
[2019-08-06] MEDS: PANTOPRAZOLE SODIUM 40 MG VIAL IV SCH ×2 (09:01→22:12)
[2019-08-06] MEDS: DOCUSATE SODIUM 100 MG CAPSULE PO SCH ×2 (09:01→17:21)
[2019-08-06] MEDS: NA PHOS,M-B/NA PHOS,DI-BA (ADULT) 133 ML ENEMA PR SCH (09:01)
[2019-08-06] MEDS ORDERED: PROPOFOL INJ 200 MG/20 ML VIAL IV ONE (14:16)
--- NOTE | 2019-08-06 15:30 | Operative Report ---
Operative Report DATE OF SURGERY: 08/06/19 Operative Report: The risk, benefits and alternatives of the procedure including the risk of bleeding, perforation requiring surgery have been explained to the patient in detail and informed consent has been obtained. Patient is taken back to the operating room and placed in the left, lateral decubital position. Timeout was called. Propofol medication is administered. Rectal examination is done which did not reveal any masses, tears or fissures. Olympus videoscope was introduced into the patient's rectum. Scope was then carefully advanced all the way to the tip of the ileocecal valve. Deep intubation could not be done. Patient does have an enlarged liver and it appears that it is compressing the hepatic flexure area making it difficult for the scope to proceed prep is otherwise reasonably good. Scope was then sequentially pulled back via the rest segments of the colon including the ascending colon, back fracture, transverse colon, splenic flexure, descending colon finding to the rectosigmoid portions of the colon. Retroflexion maneuvers performed. The risk, benefits and alternatives of the procedure explained to the patient in detail and informed consent is obtained. The upper endoscopy is similarly done. PREOPERATIVE DIAGNOSIS: GI bleeding, anemia POSTOPERATIVE DIAGNOSIS: Clean-based esophageal ulcer. Schatzki's ring status post breakage. Hiatal hernia. Gastritis. No evidence of upper GI bleeding. 3 polyps removed in the splenic flexure, hepatic flexure and the rectosigmoid colon. Diverticulosis. Internal hemorrhoids. Right side of the colon is incompletely distended likely showing on CT scan to be thickened no active colitis is seen in the area. OPERATION: Colonoscopy with snare polypectomy. EGD with biopsy. SURGEON: EDWIN MCCOY ANESTHESIA: LMAC TISSUE REMOVED OR ALTERED: As noted above. COMPLICATIONS: None. ESTIMATED BLOOD LOSS: None. INTRAOPERATIVE FINDINGS: As noted above. PROCEDURE: Patient tolerated the procedure well. No immediate postprocedure complications are noted. Patient is sent back to her room in good condition. Resume previous diet. Wait on the pathology. No GI pathology to explain the patient's metastases to the liver either on the upper or the lower GI section Follow-up as outpatient
--- NOTE | 2019-08-06 16:15 | PDOC PROGRESS REPORT ---
Subjective Progress Note for:: 08/06/19 Subjective:: PHILLIP WESLEY is a 79 year old female With a past medical history significant for CVA without deficit, COPD, hypertension, tobacco dependence with continuous use who was admitted 08/03/19 for acute encephalopathy, JOHNSON, GI bleed, lung and liver masses. Patient was seen on morning rounds. She was found resting in bed, comfortably, on room air. She is A&Ox4, but remains somewhat forgetful. Overall improved. She denies fever, chest pain, dyspnea, cough, abdominal pain, nausea and vomiting today. She has no questions or concerns at this time. Reviewed plan of care with nursing. Reason For Visit: ACUTE ENCEPHALOPATHY,GI BLEED Physical Exam Vital Signs: Temp Pulse Resp BP Pulse Ox 98.5 F 99 22 H 144/66 H 94 08/06/19 15:21 08/06/19 15:31 08/06/19 15:31 08/06/19 15:31 08/06/19 15:31 Intake & Output 08/05/19 08/06/19 08/07/19 06:59 06:59 06:59 Intake Total 1620 2212 197 Output Total 200 0 Balance 1420 2212 197 Weight 68.5 kg 70.9 kg General appearance: PRESENT: no acute distress, well-developed, well-nourished Head exam: PRESENT: atraumatic, normocephalic Eye exam: PRESENT: conjunctiva pink, EOMI, PERRLA. ABSENT: scleral icterus Ear exam: PRESENT: normal external ear exam Mouth exam: PRESENT: moist, tongue midline Respiratory exam: PRESENT: clear to auscultation [place], symmetrical, unlabored, other - room air. ABSENT: rales, rhonchi, wheezes Cardiovascular exam: PRESENT: RRR, +S1, +S2. ABSENT: diastolic murmur, rubs, systolic murmur Vascular exam: PRESENT: normal capillary refill GI/Abdominal exam: PRESENT: normal bowel sounds, soft. ABSENT: distended, guarding, mass, organolmegaly, rebound, tenderness Rectal exam: PRESENT: deferred Extremities exam: PRESENT: full ROM. ABSENT: calf tenderness, clubbing, pedal edema Neurological exam: PRESENT: alert, awake, oriented to person, oriented to place, oriented to time, oriented to situation, CN II-XII grossly intact, other - forgetful; overall improved. ABSENT: motor sensory deficit Psychiatric exam: PRESENT: appropriate affect, normal mood. ABSENT: homicidal ideation, suicidal ideation Skin exam: PRESENT: dry, intact, warm. ABSENT: cyanosis, rash Results Laboratory Results: 08/06/19 04:37 08/06/19 12:14 08/06/19 08/06/19 08/06/19 04:37 04:37 04:37 WBC 12.1 H RBC 3.13 L Hgb 9.4 L Hct 27.1 L MCV 87 MCH 30.1 MCHC 34.8 RDW 14.9 H Plt Count 362 Retic Count (auto) Sodium 136.1 L Potassium 2.8 L* Chloride 100 Carbon Dioxide 29 Anion Gap 7 BUN 24 H Creatinine 1.33 H Est GFR ( Amer) 47 L Glucose 99 Calcium 9.1 Magnesium 1.9 Iron TIBC % Saturation Ferritin Vitamin B12 Folate 08/06/19 08/06/19 08/06/19 04:37 04:37 12:14 WBC RBC Hgb Hct MCV MCH MCHC RDW Plt Count Retic Count (auto) 2.79 Sodium Potassium 3.6 Chloride Carbon Dioxide Anion Gap BUN Creatinine Est GFR ( Amer) Glucose Calcium Magnesium Iron 29.0 L TIBC 344 % Saturation 8 Ferritin 67.60 Vitamin B12 > 1000.0 H Folate 4.25 08/03/19 15:45 Troponin I < 0.012 Impressions: Chest X-Ray 08/03/19 14:50 IMPRESSION: No focal airspace disease. Ectatic atherosclerotic aorta measuring up to 3.[address] 08/03/19 15:24 IMPRESSION: No acute intracranial hemorrhage or acute territorial infarct. Abdomen/Pelvis CT 08/03/19 15:26 IMPRESSION: 1. Suspicious findings in the chest. Adenopathy and at least 1 right lower lobe soft tissue nodule measuring over 2 cm. 2. Suspicious findings in the liver. Numerous masses are consistent with metastatic disease. 3. Suspicious bilateral adrenal nodules. Assessment and Plan - Diagnosis (1) Acute encephalopathy Is this a current diagnosis for this admission?: Yes Plan: Resolved. Acute metabolic encephalopathy is likely multifactorial secondary to acute illness (nausea/vomiting), dehydration resulting in JOHNSON, and underlying mild dementia (oriented at baseline but forgetful). Supportive care. Fall precautions. (2) JOHNSON (acute kidney injury) Is this a current diagnosis for this admission?: Yes Plan: Likely at baseline and not w/ JOHNSON as initially thought. Cr/BUN are unchanged despite IVF and increased p.o. fluids. Continue to encourage p.o. fluids. Avoid nephrotoxic medications as able. Follow-up chemistry. (3) Liver masses Is this a current diagnosis for this admission?: Yes Plan: Numerous hypodense masses throughout the liver consistent with metastatic disease. LFTs are elevated. Lipase elevated. Carcinoembryonic antigen elevated 43.9 EGD/Colonoscopy did not reveal a primary site of metastasis. Discussed with Dr. Sim. Have discussed with IR; will have needle biopsy of liver mass on Friday. (4) Lung nodule Is this a current diagnosis for this admission?: Yes Plan: Incidentally found on CT abdomen. Patient's family member confirmed that she is a continuous 1 pack/day smoker. Discussed with Dr. Sim; evaluation as above. (5) Diabetes Qualifiers: Diabetes mellitus type: type 2 Is this a current diagnosis for this admission?: Yes Plan: Historical med record show a history of diabetes mellitus. Random glucose 142 today. Hemoglobin A1c 6.0% Advance to soft diet today. Accu-Cheks before meals and at bedtime with Humalog for sliding scale coverage. Hypoglycemia protocol in place. (6) Anemia Qualifiers: Anemia type: unspecified type Qualified Code(s): D64.9 - Anemia, unspecified Is this a current diagnosis for this admission?: Yes Plan: Now s/p 1 unit PRBC Hgb appears stable at this time. Guaiac was positive, no hemorrhoids noted, however with a hard/large ball of stool in rectum. Continue on PPI. Follow-up CBC. GI is consulted; plan for EGD/colonoscopy once COVID-19 ruled out. Heme/Onc consulted. (7) GI bleed Qualifiers: GI bleed type/associated pathology: unspecified gastrointestinal hemorrhage type Qualified Code(s): K92.2 - Gastrointestinal hemorrhage, unspecified Is this a current diagnosis for this admission?: Yes Plan: GI is consulted; now s/o EGD and colonoscopy by Dr. Pereyra Continue on Protonix. (8) Fecal impaction Is this a current diagnosis for this admission?: Yes Plan: Resolved following continue bowel prep - Time Time Spent with patient: 35 or more minutes Medications reviewed and adjusted accordingly: Yes Anticipated discharge: Home with Homehealth Within: within 72 hours - following needle biopsy
[2019-08-06] MEDS ORDERED: NORMAL SALINE 1000 ML 1,000 ML IV PRN (18:19)
[2019-08-06] MEDS: METOPROLOL SUCCINATE 25 MG TAB.SR.24H PO SCH (22:12)
[2019-08-06] MEDS: ISOSORBIDE MONONITRATE 30 MG TAB.ER.24H PO SCH (22:12)
[2019-08-07] MEDS: INSULIN LISPRO 100 UNIT/ML 3 ML VIAL SUBCUT SCH ×5 (00:14→21:31)
[2019-08-07] MEDS: ALBUTEROL SULFATE HFA (90 MCG/PUFF) 200 PUFF/8.5 GM MDI IH SCH ×4 (00:53→18:12)
[2019-08-07 05:33] LABS: HEMATOCRIT 26.1 % (36.0-47.0); HEMOGLOBIN 8.7 g/dL (12.0-15.5); MEAN CORPUSCULAR HEMOGLOBIN 29.3 pg (27.0-33.4); MEAN CORPUSCULAR HGB CONC 33.5 g/dL (32.0-36.0); MEAN CORPUSCULAR VOLUME 87 fl (80-97); PLATELET COUNT 357 10^3/uL (150-450); RED BLOOD COUNT 2.98 10^6/uL (3.72-5.28); WHITE BLOOD COUNT 12.3 10^3/uL (4.0-10.5)
[2019-08-07 05:52] LABS: ANION GAP 5 (5-19); BLOOD UREA NITROGEN 21 mg/dL (7-20); CALCIUM 8.7 mg/dL (8.4-10.2); CARBON DIOXIDE 27 mmol/L (22-30); CHLORIDE 103 mmol/L (98-107); GLUCOSE 76 mg/dL (75-110); POTASSIUM 3.6 mmol/L (3.6-5.0)
[2019-08-07] MEDS: METOPROLOL SUCCINATE 25 MG TAB.SR.24H PO SCH ×2 (11:13→21:30)
[2019-08-07] MEDS: DOCUSATE SODIUM 100 MG CAPSULE PO SCH ×2 (11:14→18:11)
[2019-08-07] MEDS: PANTOPRAZOLE SODIUM 40 MG VIAL IV SCH (11:16)
[2019-08-07] MEDS: NA PHOS,M-B/NA PHOS,DI-BA (ADULT) 133 ML ENEMA PR SCH (11:17)
--- NOTE | 2019-08-07 13:34 | RADIOLOGY REPORT (SQ) ---
EXAM DESCRIPTION: CHEST SINGLE VIEW IMAGES COMPLETED DATE/TIME: 08/07/2019 1:23 pm REASON FOR STUDY: dyspnea, cough COMPARISON: 08/03/2019. EXAM PARAMETERS: NUMBER OF VIEWS: One view. TECHNIQUE: Single frontal radiographic view of the chest acquired. RADIATION DOSE: NA LIMITATIONS: None. FINDINGS: LUNGS AND PLEURA: No opacities, masses or pneumothorax. No pleural effusion. MEDIASTINUM AND HILAR STRUCTURES: No masses. Contour normal. HEART AND VASCULAR STRUCTURES: Heart normal in size. Normal vasculature. BONES: No acute findings. HARDWARE: None in the chest. OTHER: No other significant finding. IMPRESSION: NO ACUTE RADIOGRAPHIC FINDING IN THE CHEST. TECHNICAL DOCUMENTATION: JOB ID: [id number] 2010 [employer]- All Rights Reserved Reading location - IP/workstation name: [email or web address]
--- NOTE | 2019-08-07 15:55 | PDOC PROGRESS REPORT ---
Subjective Progress Note for:: 08/07/19 Subjective:: PHILLIP WESLEY is a 79 year old female With a past medical history significant for CVA without deficit, COPD, hypertension, tobacco dependence with continuous use who was admitted 08/03/19 for acute encephalopathy, JOHNSON, GI bleed, lung and liver masses. Patient was seen on morning rounds. She was sitting up to the recliner, comfortably, on room air. She is A&Ox4, but remains somewhat forgetful. Overall improved. She does report slight shortness of breath today, although, denies cough. She also complains of abdominal fullness. She denies fever, chest pain, dyspnea, cough, abdominal pain, nausea and vomiting today. She has no questions or concerns at this time. No concerns per nursing. Reason For Visit: ACUTE ENCEPHALOPATHY,GI BLEED Physical Exam Vital Signs: Temp Pulse Resp BP Pulse Ox 97.6 F 101 H 28 H 151/60 H 98 08/07/19 10:00 08/07/19 10:00 08/07/19 10:00 08/07/19 10:00 08/07/19 10:00 Intake & Output 08/06/19 08/07/19 08/08/19 06:59 06:59 06:59 Intake Total 2212 1387 Output Total 350 Balance 2212 1037 Weight 70.9 kg 73.1 kg General appearance: PRESENT: no acute distress, cooperative, well-developed, well-nourished Head exam: PRESENT: atraumatic, normocephalic Eye exam: PRESENT: conjunctiva pink, EOMI, PERRLA. ABSENT: scleral icterus Mouth exam: PRESENT: moist, tongue midline Respiratory exam: PRESENT: clear to auscultation [place], symmetrical, tachypnea - mid-20s, unlabored, other - room air. ABSENT: rales, rhonchi, wheezes Cardiovascular exam: PRESENT: RRR. ABSENT: diastolic murmur, rubs, systolic murmur Pulses: PRESENT: normal dorsalis pedis pul Vascular exam: PRESENT: normal capillary refill GI/Abdominal exam: PRESENT: distended, normal bowel sounds, organolmegaly, soft, tenderness - RUQ. ABSENT: guarding, mass, rebound Rectal exam: PRESENT: deferred Extremities exam: PRESENT: full ROM. ABSENT: calf tenderness, clubbing, pedal edema Neurological exam: PRESENT: alert, awake, oriented to person, oriented to place, oriented to time, oriented to situation, CN II-XII grossly intact, other - forgetful. ABSENT: motor sensory deficit Psychiatric exam: PRESENT: appropriate affect, normal mood. ABSENT: homicidal ideation, suicidal ideation Skin exam: PRESENT: dry, intact, warm. ABSENT: cyanosis, rash Results Laboratory Results: 08/07/19 04:55 08/07/19 04:55 08/07/19 08/07/19 04:55 04:55 WBC 12.3 H RBC 2.98 L Hgb 8.7 L Hct 26.1 L MCV 87 MCH 29.3 MCHC 33.5 RDW 15.0 H Plt Count 357 Sodium 135.3 L Potassium 3.6 Chloride 103 Carbon Dioxide 27 Anion Gap 5 BUN 21 H Creatinine 1.31 H Est GFR ( Amer) 48 L Glucose 76 Calcium 8.7 08/03/19 15:45 Troponin I < 0.012 Impressions: Head CT 08/03/19 15:24 IMPRESSION: No acute intracranial hemorrhage or acute territorial infarct. Abdomen/Pelvis CT 08/03/19 15:26 IMPRESSION: 1. Suspicious findings in the chest. Adenopathy and at least 1 right lower lobe soft tissue nodule measuring over 2 cm. 2. Suspicious findings in the liver. Numerous masses are consistent with metastatic disease. 3. Suspicious bilateral adrenal nodules. Chest X-Ray 08/07/19 00:00 IMPRESSION: NO ACUTE RADIOGRAPHIC FINDING IN THE CHEST. Assessment and Plan - Diagnosis (1) Acute encephalopathy Is this a current diagnosis for this admission?: Yes Plan: Resolved. Acute metabolic encephalopathy is likely multifactorial secondary to acute illne ss (nausea/vomiting), dehydration resulting in JOHNSON, and underlying mild dementia (oriented at baseline but forgetful). Supportive care. Fall precautions. (2) JOHNSON (acute kidney injury) Is this a current diagnosis for this admission?: No Plan: Likely at baseline and not w/ JOHNSON as initially thought. Cr/BUN are unchanged despite IVF and increased p.o. fluids. Continue to encourage p.o. fluids. Avoid nephrotoxic medications as able. Follow-up chemistry. (3) Liver masses Is this a current diagnosis for this admission?: Yes Plan: Numerous hypodense masses throughout the liver consistent with metastatic disease. LFTs are elevated. Lipase elevated. Carcinoembryonic antigen elevated 43.9 EGD/Colonoscopy did not reveal a primary site of metastasis. Discussed with Dr. Sim. Have discussed with IR; will have CT guided needle biopsy of liver mass on Friday. (4) Lung nodule Is this a current diagnosis for this admission?: Yes Plan: Incidentally found on CT abdomen. Patient's family member confirmed that she is a continuous 1 pack/day smoker. Discussed with Dr. Sim; evaluation as above. (5) Diabetes Qualifiers: Diabetes mellitus type: type 2 Is this a current diagnosis for this admission?: Yes Plan: Historical med record show a history of diabetes mellitus. Hemoglobin A1c 6.0% Advance to soft diet today. Accu-Cheks before meals and at bedtime with Humalog for sliding scale coverage. Hypoglycemia protocol in place. (6) Anemia Qualifiers: Anemia type: unspecified type Qualified Code(s): D64.9 - Anemia, unspe cified Is this a current diagnosis for this admission?: Yes Plan: Now s/p 1 unit PRBC Hgb appears stable at this time. Guaiac was positive, no hemorrhoids noted, however with a hard/large ball of stool in rectum. EGD revealed a clean placed esophageal ulcer, hiatal hernia, gastritis, no evidence of upper GI bleeding. Colonoscopy showed diverticulosis, internal hemorrhoids, and right side of the colon incompletely distended as seen in CT scans; likely thickened. No active colitis seen. Continue on PPI. Follow-up CBC. GI is consulted; appreciate Dr. Pereyra's assistance. Heme/Onc consulted. (7) GI bleed Qualifiers: GI bleed type/associated pathology: unspecified gastrointestinal hemorrhage type Qualified Code(s): K92.2 - Gastrointestinal hemorrhage, unspecified Is this a current diagnosis for this admission?: Yes Plan: Resolved. Continue on Protonix. (8) Fecal impaction Is this a current diagnosis for this admission?: Yes Plan: Resolved following bowel prep Continue bowel regiment Colace daily and milk of mag as needed - Time Time Spent with patient: 25-34 minutes Medications reviewed and adjusted accordingly: Yes Anticipated discharge: Home Within: within 48 hours
[2019-08-07] MEDS: ISOSORBIDE MONONITRATE 30 MG TAB.ER.24H PO SCH (21:30)
[2019-08-08] MEDS: ALBUTEROL SULFATE HFA (90 MCG/PUFF) 200 PUFF/8.5 GM MDI IH SCH ×5 (01:44→23:05)
[2019-08-08] MEDS: PANTOPRAZOLE SODIUM 40 MG TABLET.DR PO SCH (06:11)
[2019-08-08] MEDS: INSULIN LISPRO 100 UNIT/ML 3 ML VIAL SUBCUT SCH ×4 (07:48→21:31)
[2019-08-08] MEDS: DOCUSATE SODIUM 100 MG CAPSULE PO SCH ×2 (09:22→17:13)
[2019-08-08] MEDS: METOPROLOL SUCCINATE 25 MG TAB.SR.24H PO SCH ×2 (09:22→21:30)
--- NOTE | 2019-08-08 10:30 | EKG REPORT ---
SEVERITY:- ABNORMAL ECG - SINUS TACHYCARDIA VENTRICULAR PREMATURE COMPLEX ABNRM R PROG, CONSIDER ASMI OR LEAD PLACEMENT : Confirmed by: Alex Hinds 08-Aug-2019 10:29:17
--- NOTE | 2019-08-08 12:10 | PDOC PROGRESS REPORT ---
Subjective Progress Note for:: 08/08/19 Subjective:: PHILLIP WESLEY is a 79 year old female With a past medical history significant for CVA without deficit, COPD, hypertension, tobacco dependence with continuous use who was admitted 08/03/19 for acute encephalopathy, JOHNSON, GI bleed, lung and liver masses. Patient was seen on morning rounds. She was resting in bed, comfortably, on supplemental oxygen.; she is not home O2 dependent. She is A&Ox4, but remains somewhat forgetful; likely at baseline. She does report slight shortness of breath today, although, denies cough. She also complains of abdominal fullness. She denies abdominal pain, however, is noted to grimace and rub her abdomen. She denies fever, chest pain, dyspnea, cough, nausea and vomiting today. She has no questions or concerns at this time. No concerns per nursing. Reason For Visit: ACUTE ENCEPHALOPATHY,GI BLEED Physical Exam Vital Signs: Temp Pulse Resp BP Pulse Ox 97.9 F 93 17 147/46 H 100 08/08/19 07:14 08/08/19 07:14 08/08/19 07:14 08/08/19 07:14 08/08/19 07:14 Intake & Output 08/07/19 08/08/19 08/09/19 06:59 06:59 06:59 Intake Total 1387 1370 Output Total 350 Balance 1037 1370 Weight 73.1 kg 73 kg General appearance: PRESENT: no acute distress, cooperative, well-developed, well-nourished Head exam: PRESENT: atraumatic, normocephalic Eye exam: PRESENT: conjunctiva pink, EOMI, PERRLA. ABSENT: scleral icterus Ear exam: PRESENT: normal external ear exam Mouth exam: PRESENT: moist, tongue midline Respiratory exam: PRESENT: clear to auscultation [place], symmetrical, tachypnea, unlabored, other - Supplemental oxygen by nasal cannula. ABSENT: rales, rhonchi, wheezes Cardiovascular exam: PRESENT: RRR. ABSENT: diastolic murmur, rubs, systolic murmur Pulses: PRESENT: normal dorsalis pedis pul Vascular exam: PRESENT: normal capillary refill GI/Abdominal exam: PRESENT: distended, normal bowel sounds, organolmegaly, soft, tenderness. ABSENT: guarding, mass, rebound Rectal exam: PRESENT: deferred Extremities exam: PRESENT: full ROM. ABSENT: calf tenderness, clubbing, pedal edema Neurological exam: PRESENT: alert, awake, oriented to person, oriented to place, oriented to time, oriented to situation, CN II-XII grossly intact, other - Forgetful. ABSENT: motor sensory deficit Psychiatric exam: PRESENT: appropriate affect, normal mood. ABSENT: homicidal ideation, suicidal ideation Skin exam: PRESENT: dry, intact, warm. ABSENT: cyanosis, rash Results Laboratory Results: 08/07/19 04:55 08/07/19 04:55 08/03/19 15:45 Troponin I < 0.012 Impressions: Head CT 08/03/19 15:24 IMPRESSION: No acute intracranial hemorrhage or acute territorial infarct. Abdomen/Pelvis CT 08/03/19 15:26 IMPRESSION: 1. Suspicious findings in the chest. Adenopathy and at least 1 right lower lobe soft tissue nodule measuring over 2 cm. 2. Suspicious findings in the liver. Numerous masses are consistent with metastatic disease. 3. Suspicious bilateral adrenal nodules. Chest X-Ray 08/07/19 00:00 IMPRESSION: NO ACUTE RADIOGRAPHIC FINDING IN THE CHEST. Assessment and Plan - Diagnosis (1) Liver masses Is this a current diagnosis for this admission?: Yes Plan: Numerous hypodense masses throughout the liver consistent with metastatic disease. LFTs are elevated. Lipase elevated. Carcinoembryonic antigen elevated 43.9 EGD/Colonoscopy did not reveal a primary site of metastasis. Discussed with Dr. Sim. NPO after midnight. CT guided needle biopsy tomorrow. (2) Lung nodule Is this a current diagnosis for this admission?: Yes Plan: Incidentally found on CT abdomen. Patient's family member confirmed that she is a continuous 1 pack/day smoker. Discussed with Dr. Sim; evaluation as above. (3) Diabetes Qualifiers: Diabetes mellitus type: type 2 Is this a current diagnosis for this admission?: Yes Plan: Historical med record show a history of diabetes mellitus. Hemoglobin A1c 6.0% Advance to soft diet today. Accu-Cheks before meals and at bedtime with Humalog for sliding scale coverage. Hypoglycemia protocol in place. (4) Anemia Qualifiers: Anemia type: unspecified type Qualified Code(s): D64.9 - Anemia, unspecified Is this a current diagnosis for this admission?: Yes Plan: Now s/p 1 unit PRBC Hgb appears stable at this time. Guaiac was positive, no hemorrhoids noted, however with a hard/large ball of stool in rectum. EGD revealed a clean placed esophageal ulcer, hiatal hernia, gastritis, no evidence of upper GI bleeding. Colonoscopy showed diverticulosis, internal hemorrhoids, and right side of the colon incompletely distended as seen in CT scans; likely thickened. No active colitis seen. Continue on PPI. Follow-up CBC. GI is consulted; appreciate Dr. Pereyra's assistance. Heme/Onc consulted. (5) GI bleed Qualifiers: GI bleed type/associated pathology: unspecified gastrointestinal hemorrhage type Qualified Code(s): K92.2 - Gastrointestinal hemorrhage, unspecified Is this a current diagnosis for this admission?: Yes Plan: Resolved. Continue on Protonix. (6) Fecal impaction Is this a current diagnosis for this admission?: Yes Plan: Resolved following bowel prep Continue bowel regiment Colace daily and milk of mag as needed (7) Acute encephalopathy Is this a current diagnosis for this admission?: Yes Plan: Resolved. Acute metabolic encephalopathy is likely multifactorial secondary to acute illness (nausea/vomiting), dehydration resulting in JOHNSON, and underlying mild dementia (oriented at baseline but forgetful). Supportive care. Fall precautions. (8) JOHNSON (acute kidney injury) Is this a current diagnosis for this admission?: No Plan: Likely at baseline and not w/ JOHNSON as initially thought. Cr/BUN are unchanged despite IVF and increased p.o. fluids. Continue to encourage p.o. fluids. Avoid nephrotoxic medications as able. Follow-up chemistry. - Time Time Spent with patient: 25-34 minutes Medications reviewed and adjusted accordingly: Yes Anticipated discharge: Home Within: within 24 hours - following biopsy
[2019-08-08] MEDS ORDERED: MORPHINE SULFATE 10 MG/5 ML ORAL SOLUTION UDCUP PO ONE (12:15)
[2019-08-08] MEDS: ISOSORBIDE MONONITRATE 30 MG TAB.ER.24H PO SCH (21:29)
[2019-08-09 05:29] LABS: HEMATOCRIT 26.9 % (36.0-47.0); MEAN CORPUSCULAR HEMOGLOBIN 29.1 pg (27.0-33.4); MEAN CORPUSCULAR HGB CONC 33.4 g/dL (32.0-36.0); MEAN CORPUSCULAR VOLUME 87 fl (80-97); PLATELET COUNT 373 10^3/uL (150-450); RED BLOOD COUNT 3.09 10^6/uL (3.72-5.28); RED CELL DISTRIBUTION WIDTH 15.5 % (11.5-14.0); WHITE BLOOD COUNT 12.4 10^3/uL (4.0-10.5)
[2019-08-09 05:35] LABS: INTERNATIONAL RATION (INR) 1.17
[2019-08-09] MEDS: PANTOPRAZOLE SODIUM 40 MG TABLET.DR PO SCH (05:44)
[2019-08-09] MEDS: ALBUTEROL SULFATE HFA (90 MCG/PUFF) 200 PUFF/8.5 GM MDI IH SCH ×3 (05:44→18:20)
[2019-08-09 05:52] LABS: ANION GAP 5 (5-19); BLOOD UREA NITROGEN 22 mg/dL (7-20); CALCIUM 8.9 mg/dL (8.4-10.2); CARBON DIOXIDE 25 mmol/L (22-30); CHLORIDE 104 mmol/L (98-107); GLUCOSE 93 mg/dL (75-110); POTASSIUM 3.6 mmol/L (3.6-5.0)
[2019-08-09] MEDS: INSULIN LISPRO 100 UNIT/ML 3 ML VIAL SUBCUT SCH ×4 (07:26→22:08)
[2019-08-09] MEDS: METOPROLOL SUCCINATE 25 MG TAB.SR.24H PO SCH ×2 (09:26→22:11)
[2019-08-09] MEDS: DOCUSATE SODIUM 100 MG CAPSULE PO SCH ×2 (09:31→18:19)
--- NOTE | 2019-08-09 14:30 | PDOC PROGRESS REPORT ---
Subjective Progress Note for:: 08/09/19 Reason For Visit: ACUTE ENCEPHALOPATHY,GI BLEED Physical Exam Vital Signs: Temp Pulse Resp BP Pulse Ox 97.8 F 96 25 H 120/88 H 100 08/09/19 07:49 08/09/19 07:49 08/09/19 07:49 08/09/19 07:49 08/09/19 07:49 Intake & Output 08/08/19 08/09/19 08/10/19 06:59 06:59 06:59 Intake Total 1370 975 Balance 1370 975 Weight 73 kg 75.6 kg General appearance: PRESENT: no acute distress Head exam: PRESENT: atraumatic Neck exam: ABSENT: JVD Respiratory exam: PRESENT: clear to auscultation [place], unlabored Cardiovascular exam: PRESENT: RRR, +S1, +S2 GI/Abdominal exam: PRESENT: distended, soft Rectal exam: PRESENT: deferred Musculoskeletal exam: PRESENT: ambulatory Neurological exam: PRESENT: alert, awake, oriented to person, oriented to place, oriented to time, oriented to situation. ABSENT: motor sensory deficit Psychiatric exam: PRESENT: appropriate affect Results Laboratory Results: 08/09/19 04:54 08/09/19 04:54 08/09/19 08/09/19 04:54 04:54 WBC 12.4 H RBC 3.09 L Hgb 9.0 L Hct 26.9 L MCV 87 MCH 29.1 MCHC 33.4 RDW 15.5 H Plt Count 373 Sodium 133.7 L Potassium 3.6 Chloride 104 Carbon Dioxide 25 Anion Gap 5 BUN 22 H Creatinine 1.23 Est GFR ( Amer) 51 L Glucose 93 Calcium 8.9 08/03/19 17:45 Blood Blood Culture - Final NO GROWTH IN 5 DAYS 08/03/19 15:45 Blood Blood Culture - Final NO GROWTH IN 5 DAYS 08/03/19 15:45 Troponin I < 0.012 Impressions: Head CT 08/03/19 15:24 IMPRESSION: No acute intracranial hemorrhage or acute territorial infarct. Abdomen/Pelvis CT 08/03/19 15:26 IMPRESSION: 1. Suspicious findings in the chest. Adenopathy and at least 1 right lower lobe soft tissue nodule measuring over 2 cm. 2. Suspicious findings in the liver. Numerous masses are consistent with metastatic disease. 3. Suspicious bilateral adrenal nodules. Chest X-Ray 08/07/19 00:00 IMPRESSION: NO ACUTE RADIOGRAPHIC FINDING IN THE CHEST. Assessment and Plan - Diagnosis (1) Acute encephalopathy Is this a current diagnosis for this admission?: Yes Plan: Likely secondary to acute infection and presentation. Patient appears to be at her baseline although still somewhat confused (2) Anemia Qualifiers: Anemia type: unspecified type Qualified Code(s): D64.9 - Anemia, unspecified Is this a current diagnosis for this admission?: Yes Plan: Now s/p 1 unit PRBC Hgb appears stable at this time. Guaiac was positive, no hemorrhoids noted, however with a hard/large ball of stool in rectum. EGD revealed a clean placed esophageal ulcer, hiatal hernia, gastritis, no evidence of upper GI bleeding. Colonoscopy showed diverticulosis, internal hemorrhoids, and right side of the colon incompletely distended as seen in CT scans; likely thickened. No active colitis seen. Continue on PPI. Follow-up CBC. GI is consulted; appreciate Dr. Pereyra's assistance. Heme/Onc consulted. 08/08 Above noted (3) Diabetes Qualifiers: Diabetes mellitus type: type 2 Is this a current diagnosis for this admission?: Yes Plan: Historical med record show a history of diabetes mellitus. Hemoglobin A1c 6.0% (4) GI bleed Qualifiers: GI bleed type/associated pathology: unspecified gastrointestinal hemorrhage type Qualified Code(s): K92.2 - Gastrointestinal hemorrhage, unspecified Is this a current diagnosis for this admission?: Yes Plan: Resolved. Continue on Protonix. (5) Liver masses Is this a current diagnosis for this admission?: Yes Plan: Numerous hypodense masses throughout the liver consistent with metastatic disease. LFTs are elevated. Lipase elevated. Carcinoembryonic antigen elevated 43.9 EGD/Colonoscopy did not reveal a primary site of metastasis. Patient became 'hypoxic' during procedure (6) Lung nodule Is this a current diagnosis for this admission?: Yes Plan: Incidentally found on CT abdomen. Patient's family member confirmed that she is a continuous 1 pack/day smoker. . - Plan Summary Summary: This patient was seen earlier today on rounds which was laying in bed. She was awaiting give a biopsy to be done. She expressed the desire to go home. She was subsequently seen again in radiology as there was an SUPERVISOR [employer] called in response to have been hypoxic. She apparently was found to have an oxygen saturation of 75% approximately a while sitting up in preparation for her liver biopsy. Apparently she may have looked flushed at the time. On arrival of the team there patient was found to be awake and alert. She was noted to still be hypoxic however it was noted that the plethysmograph did not appear to be correct. We then tried different remains including an air lobe with the same machine which still did not yield any result and so a different machine was used and at this point patient's oxygen saturation was found to be 100%. Was checked numerous times and found extended. And oxygen saturation remained at 100% although she was on a nonrebreather at this time. Patient's mental status appears to be at baseline. Her vital signs remained stable. This patient had been found to have numerous hypodense masses throughout the liver consistent with metastatic disease. EGD and colonoscopy were negative. She had been scheduled for CT-guided needle biopsy to aid in the diagnosis. She also has an incidental lung nodule that was found on routine CT. She is status post 1 unit packed red blood cell transfusion. EGD revealed a clean-based esophageal ulcer, hiatal hernia, gastritis and colonoscopy will diverticulosis, internal hemorrhoids but no other acute findings - Time Time Spent with patient: 35 or more minutes Medications reviewed and adjusted accordingly: Yes Anticipated discharge: Home Within: within 48 hours - Inpatient Certification Based on my medical assessment, after consideration of the patient's comorbidities, presenting symptoms, or acuity I expect that the services needed warrant INPATIENT care.: Yes
[2019-08-09 14:57] LABS: ARTERIAL BLOOD BASE EXCESS -3.7 mmol/L; ARTERIAL BLOOD FIO2 80%; ARTERIAL BLOOD H2CO3 0.91 mmol/L (1.05-1.35); ARTERIAL BLOOD HCO3 19.6 mmol/L (20-24); ARTERIAL BLOOD O2 SATURATION 99.8 % (94-98); ARTERIAL BLOOD PCO2 30.2 mmHg (35-45); ARTERIAL BLOOD PH 7.43 (7.35-7.45); ARTERIAL BLOOD PO2 341.8 mmHg (80-100); ARTERIAL BLOOD TOTAL CO2 20.5 mmol/L (21-25)
[2019-08-09] MEDS: ISOSORBIDE MONONITRATE 30 MG TAB.ER.24H PO SCH (22:11)
[2019-08-10] MEDS: ALBUTEROL SULFATE HFA (90 MCG/PUFF) 200 PUFF/8.5 GM MDI IH SCH ×4 (00:27→17:49)
[2019-08-10] MEDS: PANTOPRAZOLE SODIUM 40 MG TABLET.DR PO SCH (05:53)
[2019-08-10] MEDS: INSULIN LISPRO 100 UNIT/ML 3 ML VIAL SUBCUT SCH ×4 (07:45→21:31)
[2019-08-10] MEDS: DOCUSATE SODIUM 100 MG CAPSULE PO SCH ×2 (09:45→17:49)
[2019-08-10] MEDS: METOPROLOL SUCCINATE 25 MG TAB.SR.24H PO SCH ×2 (09:46→22:00)
[2019-08-10] MEDS: IPRATROPIUM/ALBUTEROL 0.5-2.5 MG/3 ML AMPUL NEB PRN (11:21)
[2019-08-10] MEDS ORDERED: MIDAZOLAM 2 MG/2 ML INJ ONE (13:33)
[2019-08-10] MEDS ORDERED: FENTANYL CITRATE INJ/PF 100 MCG/2 ML AMPUL ONE (13:34)
--- NOTE | 2019-08-10 13:39 | RADIOLOGY REPORT (SQ) ---
EXAM DESCRIPTION: CHEST SINGLE VIEW IMAGES COMPLETED DATE/TIME: 08/10/2019 1:29 pm REASON FOR STUDY: SOB, DESAT (ALSO FOR NM, US) COMPARISON: 08/07/2019 EXAM PARAMETERS: NUMBER OF VIEWS: One view. TECHNIQUE: Single frontal radiographic view of the chest acquired. RADIATION DOSE: NA LIMITATIONS: Low lung volumes. FINDINGS: LUNGS AND PLEURA: Lung branodn remain clear allowing for low lung volumes. MEDIASTINUM AND HILAR STRUCTURES: Fullness in the right hilum consistent with mass demonstrated on re cent CT abdomen and pelvis. There is right hilar adenopathy as well. HEART AND VASCULAR STRUCTURES: Grossly stable in appearance. BONES: No acute findings. HARDWARE: None in the chest. OTHER: No other significant finding. IMPRESSION: Limited study due to low lung volumes. Right hilar fullness consistent with known mass and adenopathy demonstrated on recent CT. TECHNICAL DOCUMENTATION: JOB ID: [id number] 2010 [employer]- All Rights Reserved Reading location - IP/workstation name: [email or web address]
--- NOTE | 2019-08-10 13:44 | RADIOLOGY REPORT (SQ) ---
EXAM DESCRIPTION: NM LUNG PERFUSION SCAN IMAGES COMPLETED DATE/TIME: 08/10/2019 1:34 pm REASON FOR STUDY: R/O PE D64.9 ANEMIA, UNSPECIFIED COMPARISON: Chest x-ray done earlier the same day. RADIONUCLIDE AND DOSE: 5.16 millicuries TC-99m MAA The route of agent administration: Intravenous TECHNIQUE: Eight views of the lungs acquired following injection of MAA. LIMITATIONS: None. FINDINGS: PERFUSION: Perfusion images with normal homogenous activity and no wedge-shaped or segment al defects. OTHER: No other significant finding. IMPRESSION: NORMAL PERFUSION LUNG SCAN. TECHNICAL DOCUMENTATION: JOB ID: [id number] 2010 [employer]- All Rights Reserved Reading location - IP/workstation name: [email or web address]
--- NOTE | 2019-08-10 14:34 | PDOC PROGRESS REPORT ---
Subjective Progress Note for:: 08/10/19 Subjective:: Still having intermittent hypoxia per oximetry however it is suspected we may have hypoperfusion of patient's finger contributing here. She is 100% at other times Reason For Visit: ACUTE ENCEPHALOPATHY,GI BLEED Physical Exam Vital Signs: Temp Pulse Resp BP Pulse Ox 97.5 F 87 18 118/40 L 98 08/10/19 10:49 08/10/19 11:25 08/10/19 11:25 08/10/19 10:49 08/10/19 11:25 Pulse Oximeter Continuous Start: 08/09/19 14:31 Freq: RTQ4 Status: Active Protocol: Document 08/10/19 11:25 JDR (Rec: 08/10/19 11:30 [id number]) Pulse Oximetry Assessment Oxygen Saturation (92-100) 98 Oxygen Flow Rate (L/min) 2 Oxygen Delivery Method Nasal Cannula Equipment Usage Equipment Standby Continuous SpO2 Machine # 0 Intake & Output 08/09/19 08/10/19 08/11/19 06:59 06:59 06:59 Intake Total 975 0 Output Total 200 200 Balance 975 -200 -200 Weight 75.6 kg 75.8 kg General appearance: PRESENT: no acute distress Head exam: PRESENT: atraumatic, normocephalic Eye exam: PRESENT: conjunctiva pink, EOMI, PERRLA. ABSENT: scleral icterus Ear exam: PRESENT: normal external ear exam Mouth exam: PRESENT: tongue midline Neck exam: ABSENT: carotid bruit, JVD, lymphadenopathy, thyromegaly Respiratory exam: PRESENT: clear to auscultation [place], rhonchi, wheezes. ABSENT: rales Cardiovascular exam: PRESENT: RRR, +S1, +S2. ABSENT: diastolic murmur, rubs, systolic murmur Pulses: PRESENT: normal dorsalis pedis pul Vascular exam: PRESENT: normal capillary refill GI/Abdominal exam: PRESENT: normal bowel sounds, soft. ABSENT: distended, guarding, mass, organolmegaly, rebound, tenderness Rectal exam: PRESENT: deferred Extremities exam: PRESENT: full ROM. ABSENT: calf tenderness, clubbing, pedal edema Neurological exam: PRESENT: alert, awake, oriented to person, oriented to place, oriented to time, oriented to situation, CN II-XII grossly intact, other - intermittent confusion. ABSENT: motor sensory deficit Psychiatric exam: PRESENT: appropriate affect, normal mood. ABSENT: homicidal ideation, suicidal ideation Skin exam: PRESENT: dry, intact, warm. ABSENT: cyanosis, rash Results Laboratory Results: 08/09/19 04:54 08/09/19 04:54 08/09/19 13:59 Carbonic Acid 0.91 L HCO3/H2CO3 Ratio 21:1 ABG pH 7.43 ABG pCO2 30.2 L ABG pO2 341.8 H ABG HCO3 19.6 L ABG O2 Saturation 99.8 H ABG Base Excess -3.7 FiO2 80% 08/03/19 15:45 Troponin I < 0.012 Impressions: Head CT 08/03/19 15:24 IMPRESSION: No acute intracranial hemorrhage or acute territorial infarct. Abdomen/Pelvis CT 08/03/19 15:26 IMPRESSION: 1. Suspicious findings in the chest. Adenopathy and at least 1 right lower lobe soft tissue nodule measuring over 2 cm. 2. Suspicious findings in the liver. Numerous masses are consistent with metastatic disease. 3. Suspicious bilateral adrenal nodules. Chest X-Ray 08/10/19 00:00 IMPRESSION: Limited study due to low lung volumes. Right hilar fullness consistent with known mass and adenopathy demonstrated on recent CT. Lung Scan-VQ NM 08/10/19 00:00 IMPRESSION: NORMAL PERFUSION LUNG SCAN. Assessment and Plan - Diagnosis (1) Acute encephalopathy Is this a current diagnosis for this admission?: Yes Plan: Likely secondary to acute infection and presentation. Patient appears to be at her baseline although still remains confused (2) Anemia Qualifiers: Anemia type: unspecified type Qualified Code(s): D64.9 - Anemia, unspecified Is this a current diagnosis for this admission?: Yes Plan: Now s/p 1 unit PRBC Hgb appears stable at this time. Guaiac was positive, no hemorrhoids noted, however with a hard/large ball of stool in rectum. EGD revealed a clean placed esophageal ulcer, hiatal hernia, gastritis, no evidence of upper GI bleeding. Colonoscopy showed diverticulosis, internal hemorrhoids, and right side of the colon incompletely distended as seen in CT scans; likely thickened. No active colitis seen. Continue on PPI. Follow-up CBC. GI is consulted; appreciate Dr. Pereyra's assistance. Heme/Onc consulted. 08/08 Above noted 08/09 Hemoglobin stable (3) Diabetes Qualifiers: Diabetes mellitus type: type 2 Is this a current diagnosis for this admission?: Yes Plan: Historical med record show a history of diabetes mellitus. Hemoglobin A1c 6.0% (4) GI bleed Qualifiers: GI bleed type/associated pathology: unspecified gastrointestinal hemorrhage type Qualified Code(s): K92.2 - Gastrointestinal hemorrhage, unspecified Is this a current diagnosis for this admission?: Yes Plan: Resolved. Continue on Protonix. (5) Liver masses Is this a current diagnosis for this admission?: Yes Plan: Numerous hypodense masses throughout the liver consistent with metastatic disease. LFTs are elevated. Lipase elevated. Carcinoembryonic antigen elevated 43.9 EGD/Colonoscopy did not reveal a primary site of metastasis. Patient became 'hypoxic' during procedure 08/09 Scheduled for biopsy today (6) Lung nodule Is this a current diagnosis for this admission?: Yes Plan: Incidentally found on CT abdomen. Patient's family member confirmed that she is a continuous 1 pack/day smoker. .08/09 Perfusion scan negative, unable to perform perfusion due to prevailing circumstances - Plan Summary Summary: 08/08 This patient was seen earlier today on rounds which was laying in bed. She was awaiting give a biopsy to be done. She expressed the desire to go home. She was subsequently seen again in radiology as there was an ECONOMIC DEVELOPER called in response to have been hypoxic. She apparently was found to have an oxygen saturation of 75% approximately a while sitting up in preparation for her liver biopsy. Apparently she may have looked flushed at the time. On arrival of the team there patient was found to be awake and alert. She was noted to still be hypoxic however it was noted that the plethysmograph did not appear to be correct. We then tried different remains including an air lobe with the same machine which still did not yield any result and so a different machine was used and at this point patient's oxygen saturation was found to be 100%. Was checked numerous times and found extended. And oxygen saturation remained at 100% although she was on a nonrebreather at this time. Patient's mental status appears to be at baseline. Her vital signs remained stable. This patient had been found to have numerous hypodense masses throughout the liver consistent with metastatic disease. EGD and colonoscopy were negative. She had been scheduled for CT-guided needle biopsy to aid in the diagnosis. She also has an incidental lung nodule that was found on routine CT. She is status post 1 unit packed red blood cell transfusion. EGD revealed a clean-based esophageal ulcer, hiatal hernia, gastritis and colonoscopy will diverticulosis, internal hemorrhoids but no other acute findings 08/09 hemodynamically stable
--- NOTE | 2019-08-10 15:29 | RADIOLOGY REPORT (SQ) ---
EXAM DESCRIPTION: U/S BIOPSY LIVER IMAGES COMPLETED DATE/TIME: 08/10/2019 3:17 pm REASON FOR STUDY: DIAGNOSIS PATHOLOGY OF LIVER NODULE COMPARISON: CT abdomen pelvis dated 08/02/2018 TECHNIQUE: Limited sonographic images the liver were obtained. LIMITATIONS: None. FINDINGS: Appropriate site was identified using sonographic guidance. The skin was sterilely preppe d and draped. 1% lidocaine was used for local anesthesia. Conscious sedation was provided. At my direction the patient received 50 mcg of fentanyl intravenous ly. Physiologic monitoring was performed before during and following the procedure. Medicine was ad ministered by the radiology nurse. Using sonographic guidance and an 18 gauge coaxial system multiple core biopsies were obtained from t he right lobe of the liver. Specimen was sent to pathology for evaluation. There were no complicati ons. IMPRESSION: Successful targeted biopsy of the right lobe of liver using ultrasound guidance. There were no complications. Pathology is pending. TECHNICAL DOCUMENTATION: JOB ID: [id number] 2010 [employer]- All Rights Reserved Reading location - IP/workstation name: [email or web address]
--- NOTE | 2019-08-10 15:31 | RADIOLOGY REPORT (SQ) ---
EXAM DESCRIPTION: U/S BIOPSY NEEDLE PLACEMENT COMPLETE DATE/TIME: 08/10/2019 3:17 pm REASON FOR STUDY: DIAGNOSIS PATHOLOGY OF LIVER NODULE D64.9 ANEMIA, UNSPECIFIED FINDINGS: Please see combined report for performance of procedure and radiologic supervision and int erpretation. IMPRESSION: Please see combined report for performance of procedure and radiologic supervision and i nterpretation. Reading location - IP/workstation name: [email or web address]
[2019-08-10] MEDS: ISOSORBIDE MONONITRATE 30 MG TAB.ER.24H PO SCH (22:00)
[2019-08-10] MEDS: MELATONIN 5 MG TABLET PO PRN (22:00)
[2019-08-11] MEDS: ALBUTEROL SULFATE HFA (90 MCG/PUFF) 200 PUFF/8.5 GM MDI IH SCH ×5 (01:38→23:03)
[2019-08-11] MEDS: PANTOPRAZOLE SODIUM 40 MG TABLET.DR PO SCH (06:04)
[2019-08-11] MEDS: INSULIN LISPRO 100 UNIT/ML 3 ML VIAL SUBCUT SCH ×4 (07:23→22:17)
[2019-08-11] MEDS: DOCUSATE SODIUM 100 MG CAPSULE PO SCH ×2 (09:16→18:40)
[2019-08-11] MEDS: METOPROLOL SUCCINATE 25 MG TAB.SR.24H PO SCH ×2 (09:16→22:19)
[2019-08-11] MEDS ORDERED: LORAZEPAM 1 MG TABLET PO PRN (16:00)
--- NOTE | 2019-08-11 16:46 | PDOC DISCHARGE SUMMARY ---
Impression - Admit/DC Date/PCP Admission Date/Primary Care Provider: 08/04/19 14:27 BLADIMIR JIMENEZ PA-C - Discharge Diagnosis (1) Acute encephalopathy Is this a current diagnosis for this admission?: Yes (2) Anemia Is this a current diagnosis for this admission?: Yes (3) Diabetes Is this a current diagnosis for this admission?: Yes (4) GI bleed Is this a current diagnosis for this admission?: Yes (5) Liver masses Is this a current diagnosis for this admission?: Yes (6) Lung nodule Is this a current diagnosis for this admission?: Yes (7) Lung cancer Is this a current diagnosis for this admission?: Yes - Additional Information Resuscitation Status: Full Code Referrals: JATINDER SANTANA MD [ACTIVE STAFF] - (1-2 weeks please call to arrange) BLADIMIR JIMENEZ PA-C [Primary Care Provider] - Follow up as needed Prescriptions: Metoprolol Succinate [Toprol Xl 25 mg Tab.sr] 37.5 mg PO Q12 #100 tab.sr.24h Home Medications: Clopidogrel Bisulfate [Plavix] 75 mg PO DAILY 05/07/18 Imipramine HCl [Tofranil] 100 mg PO QHS 05/07/18 Potassium Chloride [Klor-Con 10 Meq Tablet ER] 10 meq PO DAILY 05/07/18 Isosorbide Mononitrate [Imdur 30 mg Tablet.er] 30 mg PO QHS 05/11/18 Atorvastatin Calcium [Lipitor 40 mg Tablet] 40 mg PO QHS 08/03/19 Metoprolol Succinate [Toprol Xl 25 mg Tab.sr] 37.5 mg PO Q12 #100 tab.sr.24h 08/11/19 History of Present Illiness History of Present Illness: PHILLIP WESLEY is a 79 year old female Hospital Course Hospital Course: This patient had been found to have numerous hypodense masses throughout the liver consistent with metastatic disease. EGD and colonoscopy were negative. She had been scheduled for CT-guided needle biopsy to aid in the diagnosis. She also has an incidental lung nodule that was found on routine CT. Liver biopsy apparently is yielding carcinoma of the lung She is status post 1 unit packed red blood cell transfusion. EGD revealed a clean-based esophageal ulcer, hiatal hernia, gastritis and colonoscopy will diverticulosis, internal hemorrhoids but no other acute findings Physical Exam Vital Signs: Temp Pulse Resp BP Pulse Ox 98.1 F 90 20 146/52 H 93 08/11/19 16:00 08/11/19 16:00 08/11/19 16:00 08/11/19 16:00 08/11/19 16:00 Pulse Oximeter Continuous Start: 08/09/19 14:31 Freq: RTQ4 Status: Active Protocol: Document 08/11/19 04:00 LDI (Rec: 08/11/19 04:47 LDI [email or web address]) Pulse Oximetry Assessment Oxygen Saturation (92-100) 100 Oxygen Flow Rate (L/min) 3 Oxygen Delivery Method Nasal Cannula Fraction of Inspired Oxygen (FIO2) 32 Equipment Usage Equipment Standby Continuous SpO2 Machine # -- Intake & Output 08/10/19 08/11/19 08/12/19 06:59 06:59 06:59 Intake Total 440 600 Output Total 200 200 Balance -200 240 600 Weight 75.8 kg 73.8 kg General appearance: PRESENT: no acute distress, well-developed, well-nourished Head exam: PRESENT: atraumatic, normocephalic Eye exam: PRESENT: conjunctiva pink, EOMI, PERRLA. ABSENT: scleral icterus Ear exam: PRESENT: normal external ear exam Mouth exam: PRESENT: moist, tongue midline Neck exam: ABSENT: carotid bruit, JVD, lymphadenopathy, thyromegaly Respiratory exam: PRESENT: clear to auscultation [place]. ABSENT: rales, rhonchi, wheezes Cardiovascular exam: PRESENT: RRR. ABSENT: diastolic murmur, rubs, systolic murmur Pulses: PRESENT: normal dorsalis pedis pul Vascular exam: PRESENT: normal capillary refill GI/Abdominal exam: PRESENT: normal bowel sounds, soft. ABSENT: distended, guarding, mass, organolmegaly, rebound, tenderness Rectal exam: PRESENT: deferred Extremities exam: PRESENT: full ROM. ABSENT: calf tenderness, clubbing, pedal edema Neurological exam: PRESENT: alert, awake, oriented to person, oriented to place, oriented to time, oriented to situation, CN II-XII grossly intact. ABSENT: motor sensory deficit Psychiatric exam: PRESENT: appropriate affect, normal mood. ABSENT: homicidal ideation, suicidal ideation Skin exam: PRESENT: dry, intact, warm. ABSENT: cyanosis, rash Results Laboratory Results: WBC 12.4 10^3/uL (4.0-10.5) H 08/09/19 04:54 RBC 3.09 10^6/uL (3.72-5.28) L 08/09/19 04:54 Hgb 9.0 g/dL (12.0-15.5) L 08/09/19 04:54 Hct 26.9 % (36.0-47.0) L 08/09/19 04:54 MCV 87 fl (80-97) 08/09/19 04:54 MCH 29.1 pg (27.0-33.4) 08/09/19 04:54 MCHC 33.4 g/dL (32.0-36.0) 08/09/19 04:54 RDW 15.5 % (11.5-14.0) H 08/09/19 04:54 Plt Count 373 10^3/uL (150-450) 08/09/19 04:54 Lymph % (Auto) 11.6 % (13-45) L 08/03/19 15:45 [place] % (Auto) 7.6 % (3-13) 08/03/19 15:45 Eos % (Auto) 0.3 % (0-6) 08/03/19 15:45 Baso % (Auto) 0.8 % (0-2) 08/03/19 15:45 Reticulocyte # 0.089 10^6/uL (0.028-0.122) 08/06/19 04:37 Absolute Neuts (auto) 10.8 10^3/uL (1.7-8.2) H 08/03/19 15:45 Absolute Lymphs (auto) 1.6 10^3/uL (0.5-4.7) 08/03/19 15:45 Absolute Monos (auto) 1.0 10^3/uL (0.1-1.4) 08/03/19 15:45 Absolute Eos (auto) 0.0 10^3/uL (0.0-0.6) 08/03/19 15:45 Absolute Basos (auto) 0.1 10^3/uL (0.0-0.2) 08/03/19 15:45 Seg Neutrophils % 79.7 % (42-78) H 08/03/19 15:45 Retic Count (auto) 2.79 % (0.66-2.85) 08/06/19 04:37 PT 15.0 SEC (11.4-15.4) 08/09/19 04:54 INR 1.17 08/09/19 04:54 Carbonic Acid 0.91 mmol/L (1.05-1.35) L 08/09/19 13:59 HCO3/H2CO3 Ratio 21:1 08/09/19 13:59 ABG pH 7.43 (7.35-7.45) 08/09/19 13:59 ABG pCO2 30.2 mmHg (35-45) L 08/09/19 13:59 ABG pO2 341.8 mmHg (80-100) H 08/09/19 13:59 ABG HCO3 19.6 mmol/L (20-24) L 08/09/19 13:59 ABG Total CO2 20.5 mmol/L (21-25) L 08/09/19 13:59 ABG O2 Saturation 99.8 % (94-98) H 08/09/19 13:59 ABG Base Excess -3.7 mmol/L 08/09/19 13:59 FiO2 80% 08/09/19 13:59 Sodium 133.7 mmol/L (137-145) L 08/09/19 04:54 Potassium 3.6 mmol/L (3.6-5.0) 08/09/19 04:54 Chloride 104 mmol/L (98-107) 08/09/19 04:54 Carbon Dioxide 25 mmol/L (22-30) 08/09/19 04:54 Anion Gap 5 (5-19) 08/09/19 04:54 BUN 22 mg/dL (7-20) H 08/09/19 04:54 Creatinine 1.23 mg/dL (0.52-1.25) 08/09/19 04:54 Est GFR ( Amer) 51 (>60) L 08/09/19 04:54 Est GFR (MDRD) Non-Af 42 (>60) L 08/09/19 04:54 Glucose 93 mg/dL (75-110) 08/09/19 04:54 POC Glucose 154 mg/dL (70-110) H 08/11/19 15:41 Hemoglobin A1c % 6.0 % (4.7-6.0) 08/04/19 06:37 Lactic Acid 2.8 mmol/L (0.7-2.1) H 08/03/19 20:45 Calcium 8.9 mg/dL (8.4-10.2) 08/09/19 04:54 Magnesium 1.9 mg/dL (1.6-2.3) 08/06/19 04:37 Iron 29.0 ug/dL (37-170) L 08/06/19 04:37 TIBC 344 ug/dL (250-450) 08/06/19 04:37 % Saturation 8 % 08/06/19 04:37 Ferritin 67.60 ng/mL (11.1-264.0) 08/06/19 04:37 Total Bilirubin 1.0 mg/dL (0.2-1.3) 08/03/19 15:45 Direct Bilirubin 0.3 mg/dL (0.0-0.4) 08/03/19 15:45 Neonat Total Bilirubin Not Reportable 08/03/19 15:45 Neonat Direct Bilirubin Not Reportable 08/03/19 15:45 Neonat Indirect Bili Not Reportable 08/03/19 15:45 AST 151 U/L (14-36) H 08/03/19 15:45 ALT 37 U/L (<35) H 08/03/19 15:45 Alkaline Phosphatase 191 U/L (38-126) H 08/03/19 15:45 Troponin I < 0.012 ng/mL 08/03/19 15:45 Total Protein 6.5 g/dL (6.3-8.2) 08/03/19 15:45 Albumin 3.6 g/dL (3.5-5.0) 08/03/19 15:45 Lipase 573.9 U/L (23-300) H 08/03/19 15:45 Carcinoembryonic Ag 43.90 ng/mL (<3.0) H 08/03/19 15:45 Vitamin B12 > 1000.0 pg/mL (239-931) H 08/06/19 04:37 Folate 4.25 ng/mL (>2.76) 08/06/19 04:37 TSH 3.51 uIU/mL (0.47-4.68) 08/04/19 06:37 Urine Color YELLOW 08/03/19 16:55 Urine Appearance SLIGHTLY-CLOUDY 08/03/19 16:55 Urine pH 5.0 (5.0-9.0) 08/03/19 16:55 Ur Specific [place] 1.036 08/03/19 16:55 Urine Protein 30 mg/dL (NEGATIVE) H 08/03/19 16:55 Urine Glucose (UA) NEGATIVE mg/dL (NEGATIVE) 08/03/19 16:55 Urine Ketones NEGATIVE mg/dL (NEGATIVE) 08/03/19 16:55 Urine Blood NEGATIVE (NEGATIVE) 08/03/19 16:55 Urine Nitrite NEGATIVE (NEGATIVE) 08/03/19 16:55 Urine Bilirubin NEGATIVE (NEGATIVE) 08/03/19 16:55 Urine Urobilinogen NEGATIVE mg/dL (<2.0) 08/03/19 16:55 Ur Leukocyte Esterase NEGATIVE (NEGATIVE) 08/03/19 16:55 Urine WBC (Auto) 1 /HPF 08/03/19 16:55 Urine RBC (Auto) 1 /HPF 08/03/19 16:55 Urine Bacteria (Auto) 3+ /HPF 08/03/19 16:55 Squamous Epi Cells Auto <1 /HPF 08/03/19 16:55 Urine Mucus (Auto) RARE /LPF 08/03/19 16:55 Urine Ascorbic Acid NEGATIVE (NEGATIVE) 08/03/19 16:55 COVID-19 Source NASOPHARYNGEAL 08/03/19 16:05 COVID-19 (LEONARDO) NOT DETECTED 08/03/19 16:05 Group A Strep Rapid NEGATIVE (NEGATIVE) 08/03/19 20:09 Blood Type A NEGATIVE 08/04/19 09:30 Blood Type Confirm A NEGATIVE 08/04/19 09:40 Antibody Screen POSITIVE 08/04/19 09:30 Antibody Identification Anti-D 08/04/19 09:30 Crossmatch See Detail 08/04/19 09:30 08/03/19 15:45 Troponin I < 0.012 Impressions: Chest X-Ray 08/03/19 14:50 IMPRESSION: No focal airspace disease. Ectatic atherosclerotic aorta measuring up to 3.[address] 08/03/19 15:24 IMPRESSION: No acute intracranial hemorrhage or acute territorial infarct. Abdomen/Pelvis CT 08/03/19 15:26 IMPRESSION: 1. Suspicious findings in the chest. Adenopathy and at least 1 right lower lobe soft tissue nodule measuring over 2 cm. 2. Suspicious findings in the liver. Numerous masses are consistent with metastatic disease. 3. Suspicious bilateral adrenal nodules. Chest X-Ray 08/07/19 00:00 IMPRESSION: NO ACUTE RADIOGRAPHIC FINDING IN THE CHEST. Chest X-Ray 08/10/19 00:00 IMPRESSION: Limited study due to low lung volumes. Right hilar fullness consistent with known mass and adenopathy demonstrated on recent CT. Guidance Needle Placement Ultrasound 08/10/19 00:00 IMPRESSION: Please see combined report for performance of procedure and radiologic supervision and interpretation. Liver Biopsy Ultrasound 08/10/19 00:00 IMPRESSION: Successful targeted biopsy of the right lobe of liver using ultrasound guidance. There were no complications. Pathology is pending. Lung Scan-VQ NM 08/10/19 00:00 IMPRESSION: NORMAL PERFUSION LUNG SCAN. Stroke Is this a Stroke Patient?: No Acute Heart Failure - Is this a Heart Failure Patient?: No
--- NOTE | 2019-08-11 18:01 | PDOC PROGRESS REPORT ---
Subjective Progress Note for:: 08/11/19 Subjective:: Still having intermittent hypoxia per oximetry however it is suspected we may have hypoperfusion of patient's finger contributing here. She is 100% at other times Patient anxious to be discharged home however plans are still being made for home O2, as well as an MRI was just performed this evening due to her diagnosis and home health arrangements 1 be available till tomorrow. Reason For Visit: ACUTE ENCEPHALOPATHY,GI BLEED Physical Exam Vital Signs: Temp Pulse Resp BP Pulse Ox 98.1 F 90 20 146/52 H 93 08/11/19 16:00 08/11/19 16:00 08/11/19 16:00 08/11/19 16:00 08/11/19 16:00 Pulse Oximeter Continuous Start: 08/09/19 14:31 Freq: RTQ4 Status: Active Protocol: Document 08/11/19 04:00 LDI (Rec: 08/11/19 04:47 LDI [email or web address]) Pulse Oximetry Assessment Oxygen Saturation (92-100) 100 Oxygen Flow Rate (L/min) 3 Oxygen Delivery Method Nasal Cannula Fraction of Inspired Oxygen (FIO2) 32 Equipment Usage Equipment Standby Continuous SpO2 Machine # -- Intake & Output 08/10/19 08/11/19 08/12/19 06:59 06:59 06:59 Intake Total 440 600 Output Total 200 200 Balance -200 240 600 Weight 75.8 kg 73.8 kg General appearance: PRESENT: no acute distress Head exam: PRESENT: atraumatic, normocephalic Eye exam: PRESENT: conjunctiva pink, PERRLA. ABSENT: scleral icterus Mouth exam: PRESENT: moist, tongue midline Neck exam: ABSENT: carotid bruit, JVD, lymphadenopathy, thyromegaly Respiratory exam: PRESENT: clear to auscultation [place]. ABSENT: rales, rhonchi, wheezes Cardiovascular exam: PRESENT: RRR, +S1, +S2. ABSENT: diastolic murmur, rubs, systolic murmur Pulses: PRESENT: normal dorsalis pedis pul Vascular exam: PRESENT: normal capillary refill GI/Abdominal exam: PRESENT: normal bowel sounds, soft. ABSENT: distended, guarding, mass, organolmegaly, rebound, tenderness Rectal exam: PRESENT: deferred Extremities exam: PRESENT: full ROM. ABSENT: calf tenderness, clubbing, pedal edema Neurological exam: PRESENT: alert, awake, oriented to person, oriented to place, oriented to time, oriented to situation, CN II-XII grossly intact. ABSENT: motor sensory deficit Psychiatric exam: PRESENT: appropriate affect, normal mood. ABSENT: homicidal ideation, suicidal ideation Skin exam: PRESENT: dry, intact, warm. ABSENT: cyanosis, rash Results Laboratory Results: 08/09/19 04:54 08/09/19 04:54 08/03/19 15:45 Troponin I < 0.012 Impressions: Head CT 08/03/19 15:24 IMPRESSION: No acute intracranial hemorrhage or acute territorial infarct. Abdomen/Pelvis CT 08/03/19 15:26 IMPRESSION: 1. Suspicious findings in the chest. Adenopathy and at least 1 right lower lobe soft tissue nodule measuring over 2 cm. 2. Suspicious findings in the liver. Numerous masses are consistent with metastatic disease. 3. Suspicious bilateral adrenal nodules. Chest X-Ray 08/10/19 00:00 IMPRESSION: Limited study due to low lung volumes. Right hilar fullness consistent with known mass and adenopathy demonstrated on recent CT. Guidance Needle Placement Ultrasound 08/10/19 00:00 IMPRESSION: Please see combined report for performance of procedure and radiologic supervision and interpretation. Liver Biopsy Ultrasound 08/10/19 00:00 IMPRESSION: Successful targeted biopsy of the right lobe of liver using ultrasound guidance. There were no complications. Pathology is pending. Lung Scan-VQ NM 08/10/19 00:00 IMPRESSION: NORMAL PERFUSION LUNG SCAN. Assessment and Plan - Diagnosis (1) Acute encephalopathy Is this a current diagnosis for this admission?: Yes (2) Anemia Qualifiers: Anemia type: unspecified type Qualified Code(s): D64.9 - Anemia, u nspecified Is this a current diagnosis for this admission?: Yes (3) Diabetes Qualifiers: Diabetes mellitus type: type 2 Is this a current diagnosis for this admission?: Yes (4) GI bleed Qualifiers: GI bleed type/associated pathology: unspecified gastrointestinal hemorrhage type Qualified Code(s): K92.2 - Gastrointestinal hemorrhage, unspecified Is this a current diagnosis for this admission?: Yes (5) Liver masses Is this a current diagnosis for this admission?: Yes (6) Lung nodule Is this a current diagnosis for this admission?: Yes (7) Lung cancer Is this a current diagnosis for this admission?: Yes - Plan Summary Summary: Patient is to follow-up with Dr. Patel as outpatient for further management of her lung cancer. Pathology is apparently yielding this. We will follow-up with pathology results in a.m.
--- NOTE | 2019-08-11 18:02 | RADIOLOGY REPORT (SQ) ---
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 Images stored on PACS. CONTRAST TYPE AND DOSE: 10 mL Prohance. RENAL FUNCTION: Not indicated. ACR Type II contrast agent associated with few, if any, unconfounded cases of NSF LIMITATIONS: The IV contrast extravasated in the patient's arm. There is very little contrast enhan cement on the post gadolinium images. These images were also degraded by patient motion artifact, pa tient was uncomfortable in the scanner. FINDINGS: ANATOMY: No developmental anomalies. Normal vascular flow voids. Pituitary fossa normal. CSF SPACES: Normal in size and contour. No hemorrhage. CEREBRUM AND CEREBELLUM: Multiple cortical metastatic lesions are evident on the diffusion-weighted i mages as abnormal increased signal. These lesions are best shown on diffusion series 4, involving th e posterior medulla, bilateral cerebellar hemispheres, bilateral inferior temporal lobes, bilateral b ifrah ganglia, and bifrontal convexities. The largest of these lesions is in the left posterior tempo ral lobe, image 12/60 measuring 6 mm in size. FLAIR images demonstrate chronic small vessel ischemic change in the bifrontal and biparietal white m atter. Internal auditory canals, cerebellopontine angles, mastoids normal. No DIFFUSION IMAGING: Negative for acute or subacute infarction. However, multiple foci of restricted d iffusion are present throughout the cerebellar and cerebral hemispheres along the naidu-white junction in characteristic locations for brain metastatic lesions. These correlate with subtle T2 findings w orrisome for multiple small brain metastatic lesions. ORBITS: No masses. Globes normal. PARANASAL SINUSES: Opacified right posterior ethmoid air cells. OTHER: No other significant finding. IMPRESSION: Limited study demonstrates multiple brain lesions worrisome for metastatic disease. Sub optimal contrast bolus EVIDENCE OF ACUTE STROKE: NO. TECHNICAL DOCUMENTATION: JOB ID: [id number] 2010 [employer]- All Rights Reserved Reading location - IP/workstation name: [facility]
[2019-08-11] MEDS: ISOSORBIDE MONONITRATE 30 MG TAB.ER.24H PO SCH (22:19)
[2019-08-11] MEDS: MELATONIN 5 MG TABLET PO PRN (22:19)
[2019-08-12] MEDS: ALBUTEROL SULFATE HFA (90 MCG/PUFF) 200 PUFF/8.5 GM MDI IH SCH ×3 (06:00→17:30)
[2019-08-12] MEDS: PANTOPRAZOLE SODIUM 40 MG TABLET.DR PO SCH (06:00)
--- NOTE | 2019-08-12 07:36 | Progress Note ---
Provider Note Provider Note: I tried to speak with patient this morning by phone, but she was not able to hear or understand me very well. I did speak with her by telephone and explained that pathology results and recommendation for whole brain radiation therapy. He believes he can get her back and forth for these treatments. I am not sure how her strength is for this. Although there was no mention of edema on the MRI, steroids could be considered if patient has worsening confusion, headaches, nausea or dizziness. If so, I would start Dexamethasone 4 mg po BID. I have called and spoken with Dr. Trinh. He will arrange for radiation to begin tomorrow, either inpatient or outpatient. Please call me with any questions or concerns. Further discussion as to treatment for the cancer after radiation to the brain has completed.
[2019-08-12] MEDS: INSULIN LISPRO 100 UNIT/ML 3 ML VIAL SUBCUT SCH ×4 (07:44→21:29)
[2019-08-12] MEDS: METOPROLOL SUCCINATE 25 MG TAB.SR.24H PO SCH ×2 (10:44→21:28)
[2019-08-12] MEDS: DOCUSATE SODIUM 100 MG CAPSULE PO SCH ×2 (10:45→17:30)
[2019-08-12] MEDS: IPRATROPIUM/ALBUTEROL 0.5-2.5 MG/3 ML AMPUL NEB PRN ×2 (12:54→20:06)
--- NOTE | 2019-08-12 15:01 | PDOC PROGRESS REPORT ---
Subjective Progress Note for:: 08/12/19 Subjective:: 08/10 Still having intermittent hypoxia per oximetry however it is suspected we may have hypoperfusion of patient's finger contributing here. She is 100% at other times Patient anxious to be discharged home however plans are still being made for home O2, as well as an MRI was just performed this evening due to her diagnosis and home health arrangements 1 be available till tomorrow. Reason For Visit: ACUTE ENCEPHALOPATHY,GI BLEED Physical Exam Vital Signs: Temp Pulse Resp BP Pulse Ox 97.9 F 105 H 22 H 153/61 H 100 08/12/19 07:41 08/12/19 12:56 08/12/19 12:56 08/12/19 07:41 08/12/19 12:56 Pulse Oximeter Continuous Start: 08/09/19 14:31 Freq: RTQ4 Status: Complete Protocol: Document 08/12/19 04:00 PMU (Rec: 08/12/19 06:32 PMU [email or web address]) Pulse Oximetry Assessment Oxygen Saturation (92-100) 100 Oxygen Flow Rate (L/min) 3 Oxygen Delivery Method Nasal Cannula Fraction of Inspired Oxygen (FIO2) 32 Equipment Usage Equipment Standby Continuous SpO2 Machine # -- Intake & Output 08/11/19 08/12/19 08/13/19 06:59 06:59 06:59 Intake Total 440 1076 120 Output Total 200 400 Balance 240 1076 -280 Weight 73.8 kg 77.2 kg General appearance: PRESENT: no acute distress Head exam: PRESENT: atraumatic Eye exam: PRESENT: EOMI, PERRLA. ABSENT: scleral icterus Mouth exam: PRESENT: tongue midline Neck exam: ABSENT: carotid bruit, JVD, lymphadenopathy, thyromegaly Respiratory exam: PRESENT: clear to auscultation [place]. ABSENT: rales, rhonchi, wheezes Cardiovascular exam: PRESENT: RRR, +S1, +S2. ABSENT: diastolic murmur, rubs, systolic murmur Pulses: PRESENT: normal dorsalis pedis pul Vascular exam: PRESENT: normal capillary refill GI/Abdominal exam: PRESENT: normal bowel sounds, soft. ABSENT: distended, guarding, mass, organolmegaly, rebound, tenderness Rectal exam: PRESENT: deferred Extremities exam: PRESENT: full ROM. ABSENT: calf tenderness, clubbing, pedal edema Neurological exam: PRESENT: alert, awake, oriented to person, oriented to place. ABSENT: motor sensory deficit Psychiatric exam: PRESENT: appropriate affect, normal mood. ABSENT: homicidal ideation, suicidal ideation Skin exam: PRESENT: dry, intact, warm. ABSENT: cyanosis, rash Results Laboratory Results: 08/09/19 04:54 08/09/19 04:54 08/03/19 15:45 Troponin I < 0.012 Impressions: Head CT 08/03/19 15:24 IMPRESSION: No acute intracranial hemorrhage or acute territorial infarct. Abdomen/Pelvis CT 08/03/19 15:26 IMPRESSION: 1. Suspicious findings in the chest. Adenopathy and at least 1 right lower lobe soft tissue nodule measuring over 2 cm. 2. Suspicious findings in the liver. Numerous masses are consistent with metastatic disease. 3. Suspicious bilateral adrenal nodules. Chest X-Ray 08/10/19 00:00 IMPRESSION: Limited study due to low lung volumes. Right hilar fullness consistent with known mass and adenopathy demonstrated on recent CT. Guidance Needle Placement Ultrasound 08/10/19 00:00 IMPRESSION: Please see combined report for performance of procedure and radio logic supervision and interpretation. Liver Biopsy Ultrasound 08/10/19 00:00 IMPRESSION: Successful targeted biopsy of the right lobe of liver using ultrasound guidance. There were no complications. Pathology is pending. Lung Scan-VQ NM 08/10/19 00:00 IMPRESSION: NORMAL PERFUSION LUNG SCAN. Head MRI 08/11/19 00:00 IMPRESSION: Limited study demonstrates multiple brain lesions worrisome for metastatic disease. Suboptimal contrast bolus EVIDENCE OF ACUTE STROKE: NO. Assessment and Plan - Diagnosis (1) Acute encephalopathy Is this a current diagnosis for this admission?: Yes (2) Anemia Qualifiers: Anemia type: unspecified type Qualified Code(s): D64.9 - Anemia, unspecified Is this a current diagnosis for this admission?: Yes (3) Diabetes Qualifiers: Diabetes mellitus type: type 2 Is this a current diagnosis for this admission?: Yes (4) GI bleed Qualifiers: GI bleed type/associated pathology: unspecified gastrointestinal hemorrhage type Qualified Code(s): K92.2 - Gastrointestinal hemorrhage, unspecified Is this a current diagnosis for this admission?: Yes (5) Liver masses Is this a current diagnosis for this admission?: Yes (6) Lung nodule Is this a current diagnosis for this admission?: Yes (7) Lung cancer Qualifiers: Laterality: right Lung location: hilum of lung Qualified Code(s): 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 Gastric, esophageal, colon hepatic flexure and splenic flexure all reveal no malignancy Patient was seen by radiation oncology today and the plan is to start treatment today. The plan had been for the patient to be discharged home prior to the MRI being obtained and now with his result and the need for patient to start radiation today it is possible that patient can be discharged home tomorrow. Spouse is willing to bring for further treatment as outpatient but this should be re-discussed again with his spouse for confirmation. Although Dr. Gomez notes that there was no mention of edema on the MRI steroids should be considered if patient has worsening confusion headaches nausea or dizziness. I have opted not to start this at this time as patient has none of those symptomsPatient is to follow-up with as outpatient for further management of her lung cancer. - Time Time Spent with patient: 25-34 minutes
[2019-08-12] MEDS: ISOSORBIDE MONONITRATE 30 MG TAB.ER.24H PO SCH (21:28)
[2019-08-12] MEDS: MELATONIN 5 MG TABLET PO PRN (22:48)
[2019-08-13] MEDS: ALBUTEROL SULFATE HFA (90 MCG/PUFF) 200 PUFF/8.5 GM MDI IH SCH ×3 (01:06→12:38)
[2019-08-13] MEDS: PANTOPRAZOLE SODIUM 40 MG TABLET.DR PO SCH (06:03)
[2019-08-13] MEDS: INSULIN LISPRO 100 UNIT/ML 3 ML VIAL SUBCUT SCH ×3 (07:56→16:26)
[2019-08-13] MEDS: IPRATROPIUM/ALBUTEROL 0.5-2.5 MG/3 ML AMPUL NEB PRN ×2 (08:44→16:20)
[2019-08-13] MEDS: METOPROLOL SUCCINATE 25 MG TAB.SR.24H PO SCH (10:07)
[2019-08-13] MEDS: DOCUSATE SODIUM 100 MG CAPSULE PO SCH (10:07)
--- NOTE | 2019-08-13 15:02 | PDOC PROGRESS REPORT ---
Subjective Progress Note for:: 08/13/19 Subjective:: Patient had day 2 of radiation treatment today. After speaking with patient's nurse, it is questionable whether patient can safely return home and make it to her radiation appointments. She states her is also quite frail and weak and would be unable to lift her if she were to fall at home. All that said, patient does not want to go to rehab facility and would prefer to go home when she is a bit stronger. He has no new complaints today. She does have some lower extremity edema which she states was not present prior to admission Reason For Visit: ACUTE ENCEPHALOPATHY,GI BLEED Physical Exam Vital Signs: Temp Pulse Resp BP Pulse Ox 97.4 F 97 16 132/37 H 97 08/13/19 07:28 08/13/19 08:47 08/13/19 08:47 08/13/19 07:28 08/13/19 08:47 Pulse Oximeter Continuous Start: 08/09/19 14:31 Freq: RTQ4 Status: Complete Protocol: Document 08/12/19 04:00 PMU (Rec: 08/12/19 06:32 PMU [id number]) Pulse Oximetry Assessment Oxygen Saturation (92-100) 100 Oxygen Flow Rate (L/min) 3 Oxygen Delivery Method Nasal Cannula Fraction of Inspired Oxygen (FIO2) 32 Equipment Usage Equipment Standby Continuous SpO2 Machine # -- Intake & Output 08/12/19 08/13/19 08/14/19 06:59 06:59 06:59 Intake Total 1076 1000 120 Output Total 700 Balance 1076 300 120 Weight 77.2 kg 77.3 kg General appearance: PRESENT: no acute distress, well-developed, well-nourished Head exam: PRESENT: atraumatic, normocephalic Eye exam: PRESENT: conjunctiva pink Mouth exam: PRESENT: moist Respiratory exam: PRESENT: clear to auscultation [place]. ABSENT: rales, rhonchi, wheezes Cardiovascular exam: PRESENT: RRR. ABSENT: diastolic murmur, rubs, systolic murmur GI/Abdominal exam: PRESENT: normal bowel sounds, soft. ABSENT: distended, guarding, mass, organolmegaly, rebound, tenderness Extremities exam: PRESENT: pedal edema, +2 edema Neurological exam: PRESENT: alert, awake, oriented to person, oriented to place, oriented to time, oriented to situation Psychiatric exam: PRESENT: appropriate affect, normal mood Skin exam: PRESENT: dry, intact, warm Results Laboratory Results: 08/09/19 04:54 08/09/19 04:54 08/03/19 15:45 Troponin I < 0.012 Impressions: Head CT 08/03/19 15:24 IMPRESSION: No acute intracranial hemorrhage or acute territorial infarct. Abdomen/Pelvis CT 08/03/19 15:26 IMPRESSION: 1. Suspicious findings in the chest. Adenopathy and at least 1 right lower lobe soft tissue nodule measuring over 2 cm. 2. Suspicious findings in the liver. Numerous masses are consistent with metastatic disease. 3. Suspicious bilateral adrenal nodules. Chest X-Ray 08/10/19 00:00 IMPRESSION: Limited study due to low lung volumes. Right hilar fullness consistent with known mass and adenopathy demonstrated on recent CT. Guidance Needle Placement Ultrasound 08/10/19 00:00 IMPRESSION: Please see combined report for performance of procedure and radiologic supervision and interpretation. Liver Biopsy Ultrasound 08/10/19 00:00 IMPRESSION: Successful targeted biopsy of the right lobe of liver using ultrasound guidance. There were no complications. Pathology is pending. Lung Scan-VQ NM 08/10/19 00:00 IMPRESSION: NORMAL PERFUSION LUNG SCAN. Head MRI 08/11/19 00:00 IMPRESSION: Limited study demonstrates multiple brain lesions worrisome for metastatic disease. Suboptimal contrast bolus EVIDENCE OF ACUTE STROKE: NO. Assessment and Plan - Diagnosis (1) Acute encephalopathy Is this a current diagnosis for this admission?: Yes Plan: Likely secondary to acute infection and presentation. 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 Hemoglobin A1c 6.0% 08/13/2019 L DCI, Accu-Cheks (3) GI bleed Qualifiers: GI bleed type/associated pathology: unspecified gastrointestinal hemorrhage type Qualified Code(s): K92.2 - Gastrointestinal hemorrhage, unspecified Is this a current diagnosis for this admission?: Yes Plan: Resolved. Continue on Protonix. 08/13/2019 No further bleeding episodes, stable hemoglobin (4) Anemia Qualifiers: Anemia type: unspecified type Qualified Code(s): D64.9 - Anemia, unspecified Is this a current diagnosis for this admission?: Yes Plan: Now s/p 1 unit PRBC Hgb appears stable at this time. Guaiac was positive, no hemorrhoids noted, however with a hard/large ball of stool in rectum. EGD revealed a clean placed esophageal ulcer, hiatal hernia, gastritis, no evidence of upper GI bleeding. Colonoscopy showed diverticulosis, internal hemorrhoids, and right side of the colon incompletely distended as seen in CT scans; likely thickened. No active colitis seen. Continue on PPI. Follow-up CBC. GI is consulted; appreciate Dr. Pereyra's assistance. Heme/Onc consulted. 08/08 Above noted 08/09 Hemoglobin stable 08/13/2019 Due to GI bleed and chronic disease as above Hemoglobin stable, no further bleeding (5) Liver masses Is this a current diagnosis for this admission?: Yes Plan: Numerous hypodense masses throughout the liver consistent with metastatic disease. LFTs are elevated. Lipase elevated. Carcinoembryonic antigen elevated 43.9 EGD/Colonoscopy did not reveal a primary site of metastasis. Patient became 'hypoxic' during procedure 08/09 Scheduled for biopsy today 08/13/19 -ongoing cancer treatment per oncology (6) Lung cancer Qualifiers: Laterality: right Lung location: hilum of lung Qualified Code(s): C34.01 - Malignant neoplasm of right main bronchus Is this a current diagnosis for this admission?: Yes (7) Lung nodule Is this a current diagnosis for this admission?: Yes - Plan Summary Summary: MRI shows multiple brain lesions worrisome for metastatic disease. 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 Gastric, esophageal, colon hepatic flexure and splenic flexure all reveal no malignancy Patient was seen by radiation oncology today and the plan is to start treatment today. The plan had been for the patient to be discharged home prior to the MRI being obtained and now with his result and the need for patient to start radiation today it is possible that patient can be discharged home tomorrow. Spouse is willing to bring for further treatment as outpatient but this should be re-discussed again with his spouse for confirmation. Although Dr. Gomez notes that there was no mention of edema on the MRI steroids should be considered if patient has worsening confusion headaches nausea or dizziness. I have opted not to start this at this time as patient has none of those symptomsPatient is to follow-up with as outpatient for further management of her lung cancer. - Time Time Spent with patient: 15-24 minutes Medications reviewed and adjusted accordingly: Yes - Inpatient Certification Based on my medical assessment, after consideration of the patient's comorbidities, presenting symptoms, or acuity I expect that the services needed warrant INPATIENT care.: Yes I certify that my determination is in accordance with my understanding of Medicare's requirements for reasonable and necessary INPATIENT services [42 CFR 412.3e].: Yes Medical Necessity: Significant Comorbidiites Make Outpatient Treatment Too Risky, Need Close Monitoring Due to Risk of Patient Decompensation, Risk of Complication if Not Cared For in Hospital, Risk of Diagnosis Which Will Require Inpatient Eval/Care/Monitoring
[2019-08-13 18:31] VITALS: BP 146/52
--- NOTE | 2019-08-18 08:12 | PDOC DISCHARGE SUMMARY ---
Impression - Admit/DC Date/PCP Admission Date/Primary Care Provider: 08/04/19 14:27 BLADIMIR JIMENEZ PA-C Discharge Date: 08/13/19 - Discharge Diagnosis (1) Acute encephalopathy Is this a current diagnosis for this admission?: Yes (2) Diabetes Is this a current diagnosis for this admission?: Yes (3) GI bleed Is this a current diagnosis for this admission?: Yes (4) Anemia Is this a current diagnosis for this admission?: Yes (5) Liver masses Is this a current diagnosis for this admission?: Yes (6) Lung cancer Is this a current diagnosis for this admission?: Yes (7) Lung nodule Is this a current diagnosis for this admission?: Yes - Assessment Summary: MRI shows multiple brain lesions worrisome for metastatic disease. 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 Gastric, esophageal, colon hepatic flexure and splenic flexure all reveal no malignancy Patient was seen by radiation oncology today and the plan is to start treatment today. The plan had been for the patient to be discharged home prior to the MRI being obtained and now with his result and the need for patient to start radiation today it is possible that patient can be discharged home tomorrow. Spouse is willing to bring for further treatment as outpatient but this should be re-discussed again with his spouse for confirmation. Although Dr. Gomez notes that there was no mention of edema on the MRI steroids should be considered if patient has worsening confusion headaches nausea or dizziness. I have opted not to start this at this time as patient has none of those symptomsPatient is to follow-up with as outpatient for further management of her lung cancer. - Additional Information Resuscitation Status: Full Code Discharge Diet: As Tolerated Discharge Activity: Activity As Tolerated Referrals: JATINDER SIM MD [ACTIVE STAFF] - (1-2 weeks please call to arrange) BLADIMIR JIMENEZ PA-C [Primary Care Provider] - Follow up as needed Prescriptions: Metoprolol Succinate [Toprol Xl 25 mg Tab.sr] 37.5 mg PO Q12 #100 tab.sr.24h Home Medications: Clopidogrel Bisulfate [Plavix] 75 mg PO DAILY 05/07/18 Imipramine HCl [Tofranil] 100 mg PO QHS 05/07/18 Potassium Chloride [Klor-Con 10 Meq Tablet ER] 10 meq PO DAILY 05/07/18 Isosorbide Mononitrate [Imdur 30 mg Tablet.er] 30 mg PO QAM 05/11/18 Atorvastatin Calcium [Lipitor 40 mg Tablet] 40 mg PO QHS 08/03/19 Metoprolol Succinate [Toprol Xl 25 mg Tab.sr] 37.5 mg PO Q12 #100 tab.sr.24h 08/11/19 Albuterol Sulfate [Albuterol Sulfate Hfa] 2 puff IH QID 08/16/19 Albuterol Sulfate [Ventolin 0.083% Neb 2.5 mg/3 mL Ampul] 1 vial IH RTQ6HP PRN 08/16/19 Fluticasone/Vilanterol [Breo 100-25 Mcg Ellipta 14 Dose/Dpi] 1 puff IH DAILY 08/16/19 History of Present Illiness History of Present Illness: Per admitting physician: "PHILLIP WESLEY is a 79 year old female With a past medical history significant for CVA 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 Seth's office today with a report of emesis x1. Patient also reports that she has had increased weakness, fatigue, and a fall earlier this week. Evaluation in the emergency department revealed tachypnea (RR 24-29) but otherwise stable vital signs, leukocytosis (13.6), anemia (Hgb 9.9), PLT 517, normal coags, blood glass showing mild hypoxia, chemistry revealing mild JOHNSON (CR 1.42/BUN 26) elevated lactic acid 4.3, elevated LFTs, lipase 573, normal troponin. Chest x-ray is benign. Head CT is negative for acute findings. Abdominal CT revealed 2 cm nodule to the right lower lobe posterior pleura with right hilar and subcarinal adenopathy, numerous confluent hypodense masses throughout the liver consistent with metastatic disease and abdominal adenopathy. COVID-19 testing was undertaken due to patient's report of dyspnea and cough. Dr. Pereyra was consulted and is agreeable to EGD/colonoscopy as indicated once COVID is ruled out. Discussed with Dr. Smi; patient is appropriate for outpatient follow-up. She is referred to the hospitalist service for admission and management of the above-stated complaints and findings." Hospital Course Hospital Course: This patient had been found to have numerous hypodense masses throughout the liver consistent with metastatic disease. EGD and colonoscopy were negative. She had been scheduled for CT-guided needle biopsy to aid in the diagnosis. She also has an incidental lung nodule that was found on routine CT. Liver biopsy apparently is yielding carcinoma of the lung She is status post 1 unit packed red blood cell transfusion. EGD revealed a clean-based esophageal ulcer, hiatal hernia, gastritis and colonoscopy will diverticulosis, internal hemorrhoids but no other acute findings Started radiation treatment per oncology. Sent home with home health. We have recommended SNF and family/pt refused. Poor terminal computer operator prognosis. (1) Acute encephalopathy Is this a current diagnosis for this admission?: Yes Plan: Likely secondary to acute infection and presentation. 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 Hemoglobin A1c 6.0% 08/13/2019 L DCI, Accu-Cheks (3) GI bleed Qualifiers: GI bleed type/associated pathology: unspecified gastrointestinal hemorrhage type Qualified Code(s): K92.2 - Gastrointestinal hemorrhage, unspecified Is this a current diagnosis for this admission?: Yes Plan: Resolved. Continue on Protonix. 08/13/2019 No further bleeding episodes, stable hemoglobin (4) Anemia Qualifiers: Anemia type: unspecified type Qualified Code(s): D64.9 - Anemia, unspecified Is this a current diagnosis for this admission?: Yes Plan: Now s/p 1 unit PRBC Hgb appears stable at this time. Guaiac was positive, no hemorrhoids noted, however with a hard/large ball of stool in rectum. EGD revealed a clean placed esophageal ulcer, hiatal hernia, gastritis, no evidence of upper GI bleeding. Colonoscopy showed diverticulosis, internal hemorrhoids, and right side of the colon incompletely distended as seen in CT scans; likely thickened. No active colitis seen. Continue on PPI. Follow-up CBC. GI is consulted; appreciate Dr. Pereyra's assistance. Heme/Onc consulted. 08/08 Above noted 08/09 Hemoglobin stable 08/13/2019 Due to GI bleed and chronic disease as above Hemoglobin stable, no further bleeding (5) Liver masses Is this a current diagnosis for this admission?: Yes Plan: Numerous hypodense masses throughout the liver consistent with metastatic disease. LFTs are elevated. Lipase elevated. Carcinoembryonic antigen elevated 43.9 EGD/Colonoscopy did not reveal a primary site of metastasis. Patient became 'hypoxic' during procedure 08/09 Scheduled for biopsy today 08/13/19 -ongoing cancer treatment per oncology (6) Lung cancer Qualifiers: Laterality: right Lung location: hilum of lung Qualified Code(s): C34.01 - Malignant neoplasm of right main bronchus Is this a current diagnosis for this admission?: Yes (7) Lung nodule Is this a current diagnosis for this admission?: Yes - Plan Summary Summary: MRI shows multiple brain lesions worrisome for metastatic disease. 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 Gastric, esophageal, colon hepatic flexure and splenic flexure all reveal no malignancy Physical Exam Vital Signs: Temp Pulse Resp BP Pulse Ox 97.6 F 80 20 146/52 H 96 08/13/19 18:30 08/13/19 18:30 08/13/19 18:30 08/13/19 18:30 08/13/19 18:30 Pulse Oximeter Continuous Start: 08/09/19 14:31 Freq: RTQ4 Status: Complete Protocol: Document 08/12/19 04:00 PMU (Rec: 08/12/19 06:32 PMU [id number]) Pulse Oximetry Assessment Oxygen Saturation (92-100) 100 Oxygen Flow Rate (L/min) 3 Oxygen Delivery Method Nasal Cannula Fraction of Inspired Oxygen (FIO2) 32 Equipment Usage Equipment Standby Continuous SpO2 Machine # -- General appearance: PRESENT: no acute distress, well-developed, well-nourished Head exam: PRESENT: atraumatic, normocephalic Eye exam: PRESENT: conjunctiva pink Mouth exam: PRESENT: moist Respiratory exam: PRESENT: clear to auscultation [place]. ABSENT: rales, rhonchi, wheezes Cardiovascular exam: PRESENT: RRR. ABSENT: diastolic murmur, rubs, systolic murmur GI/Abdominal exam: PRESENT: normal bowel sounds, soft. ABSENT: distended, guarding, mass, organolmegaly, rebound, tenderness Neurological exam: PRESENT: alert, awake, oriented to person, oriented to place Skin exam: PRESENT: dry, warm Results Laboratory Results: WBC 12.4 10^3/uL (4.0-10.5) H 08/09/19 04:54 RBC 3.09 10^6/uL (3.72-5.28) L 08/09/19 04:54 Hgb 9.0 g/dL (12.0-15.5) L 08/09/19 04:54 Hct 26.9 % (36.0-47.0) L 08/09/19 04:54 MCV 87 fl (80-97) 08/09/19 04:54 MCH 29.1 pg (27.0-33.4) 08/09/19 04:54 MCHC 33.4 g/dL (32.0-36.0) 08/09/19 04:54 RDW 15.5 % (11.5-14.0) H 08/09/19 04:54 Plt Count 373 10^3/uL (150-450) 08/09/19 04:54 Lymph % (Auto) 11.6 % (13-45) L 08/03/19 15:45 [place] % (Auto) 7.6 % (3-13) 08/03/19 15:45 Eos % (Auto) 0.3 % (0-6) 08/03/19 15:45 Baso % (Auto) 0.8 % (0-2) 08/03/19 15:45 Reticulocyte # 0.089 10^6/uL (0.028-0.122) 08/06/19 04:37 Absolute Neuts (auto) 10.8 10^3/uL (1.7-8.2) H 08/03/19 15:45 Absolute Lymphs (auto) 1.6 10^3/uL (0.5-4.7) 08/03/19 15:45 Absolute Monos (auto) 1.0 10^3/uL (0.1-1.4) 08/03/19 15:45 Absolute Eos (auto) 0.0 10^3/uL (0.0-0.6) 08/03/19 15:45 Absolute Basos (auto) 0.1 10^3/uL (0.0-0.2) 08/03/19 15:45 Seg Neutrophils % 79.7 % (42-78) H 08/03/19 15:45 Retic Count (auto) 2.79 % (0.66-2.85) 08/06/19 04:37 PT 15.0 SEC (11.4-15.4) 08/09/19 04:54 INR 1.17 08/09/19 04:54 Carbonic Acid 0.91 mmol/L (1.05-1.35) L 08/09/19 13:59 HCO3/H2CO3 Ratio 21:1 08/09/19 13:59 ABG pH 7.43 (7.35-7.45) 08/09/19 13:59 ABG pCO2 30.2 mmHg (35-45) L 08/09/19 13:59 ABG pO2 341.8 mmHg (80-100) H 08/09/19 13:59 ABG HCO3 19.6 mmol/L (20-24) L 08/09/19 13:59 ABG Total CO2 20.5 mmol/L (21-25) L 08/09/19 13:59 ABG O2 Saturation 99.8 % (94-98) H 08/09/19 13:59 ABG Base Excess -3.7 mmol/L 08/09/19 13:59 FiO2 80% 08/09/19 13:59 Sodium 133.7 mmol/L (137-145) L 08/09/19 04:54 Potassium 3.6 mmol/L (3.6-5.0) 08/09/19 04:54 Chloride 104 mmol/L (98-107) 08/09/19 04:54 Carbon Dioxide 25 mmol/L (22-30) 08/09/19 04:54 Anion Gap 5 (5-19) 08/09/19 04:54 BUN 22 mg/dL (7-20) H 08/09/19 04:54 Creatinine 1.23 mg/dL (0.52-1.25) 08/09/19 04:54 Est GFR ( Amer) 51 (>60) L 08/09/19 04:54 Est GFR (MDRD) Non-Af 42 (>60) L 08/09/19 04:54 Glucose 93 mg/dL (75-110) 08/09/19 04:54 POC Glucose 143 mg/dL (70-110) H 08/13/19 15:54 Hemoglobin A1c % 6.0 % (4.7-6.0) 08/04/19 06:37 Lactic Acid 2.8 mmol/L (0.7-2.1) H 08/03/19 20:45 Calcium 8.9 mg/dL (8.4-10.2) 08/09/19 04:54 Magnesium 1.9 mg/dL (1.6-2.3) 08/06/19 04:37 Iron 29.0 ug/dL (37-170) L 08/06/19 04:37 TIBC 344 ug/dL (250-450) 08/06/19 04:37 % Saturation 8 % 08/06/19 04:37 Ferritin 67.60 ng/mL (11.1-264.0) 08/06/19 04:37 Total Bilirubin 1.0 mg/dL (0.2-1.3) 08/03/19 15:45 Direct Bilirubin 0.3 mg/dL (0.0-0.4) 08/03/19 15:45 Neonat Total Bilirubin Not Reportable 08/03/19 15:45 Neonat Direct Bilirubin Not Reportable 08/03/19 15:45 Neonat Indirect Bili Not Reportable 08/03/19 15:45 AST 151 U/L (14-36) H 08/03/19 15:45 ALT 37 U/L (<35) H 08/03/19 15:45 Alkaline Phosphatase 191 U/L (38-126) H 08/03/19 15:45 Troponin I < 0.012 ng/mL 08/03/19 15:45 Total Protein 6.5 g/dL (6.3-8.2) 08/03/19 15:45 Albumin 3.6 g/dL (3.5-5.0) 08/03/19 15:45 Lipase 573.9 U/L (23-300) H 08/03/19 15:45 Carcinoembryonic Ag 43.90 ng/mL (<3.0) H 08/03/19 15:45 Vitamin B12 > 1000.0 pg/mL (239-931) H 08/06/19 04:37 Folate 4.25 ng/mL (>2.76) 08/06/19 04:37 TSH 3.51 uIU/mL (0.47-4.68) 08/04/19 06:37 Urine Color YELLOW 08/03/19 16:55 Urine Appearance SLIGHTLY-CLOUDY 08/03/19 16:55 Urine pH 5.0 (5.0-9.0) 08/03/19 16:55 Ur Specific [place] 1.036 08/03/19 16:55 Urine Protein 30 mg/dL (NEGATIVE) H 08/03/19 16:55 Urine Glucose (UA) NEGATIVE mg/dL (NEGATIVE) 08/03/19 16:55 Urine Ketones NEGATIVE mg/dL (NEGATIVE) 08/03/19 16:55 Urine Blood NEGATIVE (NEGATIVE) 08/03/19 16:55 Urine Nitrite NEGATIVE (NEGATIVE) 08/03/19 16:55 Urine Bilirubin NEGATIVE (NEGATIVE) 08/03/19 16:55 Urine Urobilinogen NEGATIVE mg/dL (<2.0) 08/03/19 16:55 Ur Leukocyte Esterase NEGATIVE (NEGATIVE) 08/03/19 16:55 Urine WBC (Auto) 1 /HPF 08/03/19 16:55 Urine RBC (Auto) 1 /HPF 08/03/19 16:55 Urine Bacteria (Auto) 3+ /HPF 08/03/19 16:55 Squamous Epi Cells Auto <1 /HPF 08/03/19 16:55 Urine Mucus (Auto) RARE /LPF 08/03/19 16:55 Urine Ascorbic Acid NEGATIVE (NEGATIVE) 08/03/19 16:55 COVID-19 Source NASOPHARYNGEAL 08/03/19 16:05 COVID-19 (LEONARDO) NOT DETECTED 08/03/19 16:05 Group A Strep Rapid NEGATIVE (NEGATIVE) 08/03/19 20:09 Blood Type A NEGATIVE 08/04/19 09:30 Blood Type Confirm A NEGATIVE 08/04/19 09:40 Antibody Screen POSITIVE 08/04/19 09:30 Antibody Identification Anti-D 08/04/19 09:30 Crossmatch See Detail 08/04/19 09:30 08/03/19 15:45 Troponin I < 0.012 Impressions: Chest X-Ray 08/03/19 14:50 IMPRESSION: No focal airspace disease. Ectatic atherosclerotic aorta measuring up to 3.[address] 08/03/19 15:24 IMPRESSION: No acute intracranial hemorrhage or acute territorial infarct. Abdomen/Pelvis CT 08/03/19 15:26 IMPRESSION: 1. Suspicious findings in the chest. Adenopathy and at least 1 right lower lobe soft tissue nodule measuring over 2 cm. 2. Suspicious findings in the liver. Numerous masses are consistent with metastatic disease. 3. Suspicious bilateral adrenal nodules. Chest X-Ray 08/07/19 00:00 IMPRESSION: NO ACUTE RADIOGRAPHIC FINDING IN THE CHEST. Chest X-Ray 08/10/19 00:00 IMPRESSION: Limited study due to low lung volumes. Right hilar fullness consistent with known mass and adenopathy demonstrated on recent CT. Guidance Needle Placement Ultrasound 08/10/19 00:00 IMPRESSION: Please see combined report for performance of procedure and radiologic supervision and interpretation. Liver Biopsy Ultrasound 08/10/19 00:00 IMPRESSION: Successful targeted biopsy of the right lobe of liver using ultrasound guidance. There were no complications. Pathology is pending. Lung Scan-VQ NM 08/10/19 00:00 IMPRESSION: NORMAL PERFUSION LUNG SCAN. Head MRI 08/11/19 00:00 IMPRESSION: Limited study demonstrates multiple brain lesions worrisome for metastatic disease. Suboptimal contrast bolus EVIDENCE OF ACUTE STROKE: NO. Plan Plan of Treatment: Recommend Hospice Eval Stroke Is this a Stroke Patient?: No Acute Heart Failure - Is this a Heart Failure Patient?: No
== END 2019-08-13 18:40 | disposition home health service (06) | DRG 71 ==
LOC: ER 14:41 → INTOOBSV 18:47 → EH 18:47 → 5 21:10 → OBSVTOIN 08-04 14:27 → 4N 08-06 09:30
PROVIDERS: ADMIT Internal Medicine; ATTEND Internal Medicine
PROC: 30233N1 Transfusion of Nonautologous Red Blood Cells into Peripheral Vein, Percutaneous Approach (ICD-10-PCS; principal; 2019-08-04)
PROC: 0DBL8ZX Excision of Transverse Colon, Via Natural or Artificial Opening Endoscopic, Diagnostic (ICD-10-PCS; 2019-08-06)
PROC: 0DD58ZX Extraction of Esophagus, Via Natural or Artificial Opening Endoscopic, Diagnostic (ICD-10-PCS; 2019-08-06)
PROC: 0DD68ZX Extraction of Stomach, Via Natural or Artificial Opening Endoscopic, Diagnostic (ICD-10-PCS; 2019-08-06)
PROC: 0DBP8ZX Excision of Rectum, Via Natural or Artificial Opening Endoscopic, Diagnostic (ICD-10-PCS; 2019-08-06 13:45)
DX: G93.41 Metabolic encephalopathy (principal); N17.9 Acute kidney failure, unspecified; K92.2 Gastrointestinal hemorrhage, unspecified; C34.01 Malignant neoplasm of right main bronchus; D64.9 Anemia, unspecified; I10 Essential (primary) hypertension; J44.9 Chronic obstructive pulmonary disease, unspecified; E11.65 Type 2 diabetes mellitus with hyperglycemia; K56.41 Fecal impaction; R91.1 Solitary pulmonary nodule; R16.0 Hepatomegaly, not elsewhere classified; F17.210 Nicotine dependence, cigarettes, uncomplicated; Z86.73 Personal history of transient ischemic attack (TIA), and cerebral infarction without residual deficits; Z03.818 Encounter for observation for suspected exposure to other biological agents ruled out; Z79.01 Long term (current) use of anticoagulants; Z79.899 Other long term (current) drug therapy
CPT/HCPCS: 00813; 36415; 36430; 43239; 45385; 47000; 70450; 70553; 71045; 74177; 76942; 78580; 80048; 80053; 81001; 82378; 82607; 82728; 82746; 82803; 82962; 83036; 83540; 83550; 83605; 83690; 83735; 84132; 84443; 84484; 85025; 85027; 85045; 85610; 86850; 86870; 86900; 86901; 86920; 86922; 87040; 87070; 87635; 87880; 88305; 88312; 88341; 88342; 93005; 93010; 94640; 94799; 96360; 99285; A9540; A9576; C9113; G0378; J1815; J1940; J2250; J2405; J2704; J3010; J3480; J3490; J7030; J7620; P9016; Q9969

== ENCOUNTER 2019-08-16 05:18 | Inpatient (IN) | payer MEDICARE, BC ==
[2019-08-16] MEDS ORDERED: IPRATROPIUM/ALBUTEROL 0.5-2.5 MG/3 ML AMPUL NEB ONE (05:48)
[2019-08-16] MEDS ORDERED: MAGNESIUM SULFATE/D5W 1 GM/100 ML RTUPB IV ONE (05:48)
--- NOTE | 2019-08-16 05:50 | ER Document Report ---
ED Medical Screen (RME) - General Chief Complaint: Breathing Difficulty Stated Complaint: ALTERED MENTAL STATUS/DIFFICULTY BREATHING Time Seen by Provider: 08/16/19 05:41 Primary Care Provider: BLADIMIR JIMENEZ PA-C [Primary Care Provider] - Follow up as needed Notes: 79-year-old female comes emergency department for chief complaint of difficulty breathing and wheezing with coughing. Patient reportedly was just discharged from the hospital after being hospitalized for a GI bleed and altered mental status. Patient reportedly has masses in the liver and lungs with metastasis to the brain as well. Patient is on been home for 2 days. She has COPD, on home oxygen, continues to smoke. No fever reported, patient tested negative for coronavirus while admitted. Patient is oriented to person, place, time, events although family was stating that she had confusion at home per EMS, EMS reports there was an unclear report at home. Patient only reports difficulty breathing, denies any other symptoms including chest pain. Patient is full code and was supposed to see oncology today. TRAVEL OUTSIDE OF THE [place] IN LAST 30 DAYS: No - Related Data Allergies/Adverse Reactions: No Known Allergies Allergy (Verified 05/11/18 10:03) Past Medical History - Past Medical History Cardiac Medical History: Reports: Hx Hypertension Denies: Hx Coronary Artery Disease, Hx Heart Attack Pulmonary Medical History: Reports: Hx COPD Denies: Hx Asthma, Hx Bronchitis, Hx Pneumonia Neurological Medical History: Reports: Hx Cerebrovascular Accident. Denies: Hx Seizures Endocrine Medical History: Reports: Hx Diabetes Mellitus Type 2 Renal/ Medical History: Denies: Hx Peritoneal Dialysis Malignancy Medical History: Reports: Hx Ovarian Cancer - ? bilateral ooph orectomy for ovarian mass at [facility]; no radiation/chemo Musculoskeltal Medical History: Reports Hx Arthritis Past Surgical History: Reports: Other - Bilateral oophorectomy - Immunizations Hx Diphtheria, Pertussis, Tetanus Vaccination: No Physical Exam - Respiratory Breath sounds: Decreased air movement, Wheezing Course - Re-evaluation Re-evalutation: I have greeted and performed a rapid initial assessment of this patient. A comprehensive ED assessment and evaluation of the patient, analysis of test results and completion of the medical decision making process will be conducted by additional ED providers. Doctor's Discharge - Discharge Referrals: BLADIMIR JIMENEZ PA-C [Primary Care Provider] - Follow up as needed
[2019-08-16 05:59] LABS: ABSOLUTE EOSINOPHILS # (AUTO) 0.1 10^3/uL (0.0-0.6); ABSOLUTE LYMPHOCYTES (AUTO) 1.5 10^3/uL (0.5-4.7); ABSOLUTE MONOCYTES (AUTO) 1.3 10^3/uL (0.1-1.4); ABSOLUTE NEUT (AUTO) 12.7 10^3/uL (1.7-8.2); BASOPHILS % (AUTO) 0.3 % (0-2); EOSINOPHILS % (AUTO) 0.6 % (0-6); HEMATOCRIT 25.2 % (36.0-47.0); HEMOGLOBIN 8.4 g/dL (12.0-15.5); LYMPHOCYTES % (AUTO) 9.8 % (13-45); MEAN CORPUSCULAR HEMOGLOBIN 29.4 pg (27.0-33.4); MEAN CORPUSCULAR HGB CONC 33.2 g/dL (32.0-36.0); MEAN CORPUSCULAR VOLUME 88 fl (80-97); MONOCYTES % (AUTO) 8.1 % (3-13); PLATELET COUNT 383 10^3/uL (150-450); RED BLOOD COUNT 2.85 10^6/uL (3.72-5.28); RED CELL DISTRIBUTION WIDTH 16.6 % (11.5-14.0); SEGMENTED NEUTROPHILS % (AUTO) 81.2 % (42-78); TOTAL CELLS COUNTED % (AUTO) 100 %; WHITE BLOOD COUNT 15.6 10^3/uL (4.0-10.5)
[2019-08-16 06:20] LABS: ALBUMIN 2.8 g/dL (3.5-5.0); ALKALINE PHOSPHATASE 360 U/L (38-126); ANION GAP 9 (5-19); ASPARTATE AMINO TRANSFERASE 738 U/L (14-36); BILIRUBIN,DIRECT 2.5 mg/dL (0.0-0.4); BILIRUBIN,TOTAL 3.4 mg/dL (0.2-1.3); BLOOD UREA NITROGEN 44 mg/dL (7-20); CARBON DIOXIDE 23 mmol/L (22-30); CHLORIDE 100 mmol/L (98-107); GLUCOSE 96 mg/dL (75-110); POTASSIUM 5.1 mmol/L (3.6-5.0); TOTAL PROTEIN 5.4 g/dL (6.3-8.2)
[2019-08-16 06:32] LABS: TROPONIN I 0.017 ng/mL
--- NOTE | 2019-08-16 06:35 | RADIOLOGY REPORT (SQ) ---
EXAM DESCRIPTION: XR CHEST 1 VIEW COMPLETED DATE/TME: 08/16/2019 05:47 CLINICAL HISTORY: 79 years, Female, shortness of breath COMPARISON: 08/07/2019 chest NUMBER OF VIEWS: 1 TECHNIQUE: Portable chest LIMITATIONS: None. FINDINGS: Low lung volumes with elevation of the right hemidiaphragm. The heart size is grossly stable. Atheromatous change thoracic aorta. Lungs appear clear. No pneumothorax. Osteopenia IMPRESSION: Low lung volumes. Elevation of the right hemidiaphragm. As visualized, the lungs are clear copyright 2011 [employer]- All Rights Reserved
[2019-08-16 07:08] LABS: VENOUS BLOOD BASE EXCESS -4.8 mmol/L; VENOUS BLOOD HCO3 20.6 mmol/L (20-32); VENOUS BLOOD PCO2 39.1 mmHg (35-63); VENOUS BLOOD PH 7.34 (7.30-7.42)
--- NOTE | 2019-08-16 07:17 | EKG REPORT ---
SEVERITY:- BORDERLINE ECG - SINUS RHYTHM BORDERLINE T WAVE ABNORMALITIES : Confirmed by: Carter Ferrer MD 16-Aug-2019 07:16:20
[2019-08-16] MEDS ORDERED: FUROSEMIDE INJ/PF 40 MG/4 ML SDV IV ONE (08:29)
[2019-08-16 09:31] LABS: APPEARANCE,URINE SLIGHTLY-CLOUDY; BILIRUBIN,URINE NEGATIVE (NEGATIVE); GLUCOSE, URINE NEGATIVE (NEGATIVE); KETONES,URINE NEGATIVE (NEGATIVE); LEUKOCYTE ESTERASE,URINE NEGATIVE (NEGATIVE); NITRITE,URINE NEGATIVE (NEGATIVE); PROTEIN,URINE NEGATIVE (NEGATIVE); URINE SPECIFIC GRAVITY 1.012
[2019-08-16 09:32] LABS: COLOR,URINE DARK YELLOW
[2019-08-16] MEDS ORDERED: PANTOPRAZOLE SODIUM 40 MG VIAL IV ONE (11:08)
[2019-08-16] MEDS ORDERED: CEFEPIME 2 GM/D5W RTU 2 GM/50 ML RTUPB IV ONE (11:09)
--- NOTE | 2019-08-16 12:05 | ER Document Report ---
Entered by PITER BONDS SCRIBE 08/16/19 0710 Acting as scribe for:SHANNAN ZELAYA MD ED General - General Chief Complaint: Shortness Of Breath Stated Complaint: ALTERED MENTAL STATUS/DIFFICULTY BREATHING Time Seen by Provider: 08/16/19 05:41 Primary Care Provider: BLADIMIR JIMENEZ PA-C [Primary Care Provider] - Follow up as needed Information source: Patient Notes: This 79-year-old female with liver and lung cancer with metastasis to the brain presents to the emergency department via EMS with difficulty breathing. Patient reports wheezing with coughing. Patient was just discharged from the hospital two days ago for a GI bleed and altered mental status. Patient is on home oxygen. Patient denies fever and chest pain. EMS stated that the history was un clear at home. Patient mentions that she has an appointment today with oncology. Patient's full HPI is unobtainable due to patient's condition. TRAVEL OUTSIDE OF THE [place] IN LAST 30 DAYS: No - Related Data Allergies/Adverse Reactions: No Known Allergies Allergy (Verified 05/11/18 10:03) Past Medical History - General Information source: Patient - Social History Smoking Status: Current Every Day Smoker Cigarette use (# per day): Yes Chew tobacco use (# tins/day): No Frequency of alcohol use: None Drug Abuse: None Family History: Reviewed & Not Pertinent Patient has homicidal ideation: No - Past Medical History Cardiac Medical History: Reports: Hx Hypertension Pulmonary Medical History: Reports: Hx COPD Neurological Medical History: Reports: Hx Cerebrovascular Accident Endocrine Medical History: Reports: Hx Diabetes Mellitus Type 2 Malignancy Medical History: Reports: Hx Liver Cancer, Hx Lung Cancer, Hx Ovarian Cancer - ? bilateral oophorectomy for ovarian mass at [facility]; no radiation/chemo Musculoskeletal Medical History: Reports Hx Arthritis Past Surgical History: Reports: Other - Bilateral oophorectomy - Immunizations Hx Diphtheria, Pertussis, Tetanus Vaccination: No Review of Systems - Review of Systems Constitutional: See HPI. denies: Fever EENT: No symptoms reported Cardiovascular: See HPI. denies: Chest pain Respiratory: See HPI, Cough, Short of breath, Wheezing Gastrointestinal: No symptoms reported Genitourinary: No symptoms reported Female Genitourinary: No symptoms reported Musculoskeletal: No symptoms reported Skin: No symptoms reported Hematologic/Lymphatic: No symptoms reported Neurological/Psychological: No symptoms reported -: Yes All other systems reviewed and negative Physical Exam - Vital signs Vitals: Temp 97.9 F 08/16/19 05:18 - Notes Notes: Physical Exam: General: Appears chronically ill. HEENT: Normocephalic. Atraumatic. PERRL. Extraocular movements intact. Oropharynx clear. Conjunctiva pale. Neck: Supple. Non-tender. Respiratory: No respiratory distress. Diminished breath sounds bilaterally. Cardiovascular: Regular rate and rhythm. Abdominal: Normal Inspection. Non-tender. Distended. Normal Bowel Sounds. Back: No gross abnormalities. Extremities: Moves all four extremities. Upper extremities: Normal inspection. Normal ROM. Lower extremities: 2+ edema bilaterally. Normal ROM. Clear bullous lesions on the left lower leg and left dorsal foot. Neurological: Normal cognition. AAOx4. Unintelligible speech. Skin: Warm. Dry. Pale. Course - Re-evaluation Re-evalutation: 08/16/19 12:[address] Payan who referred the admission to [facility] - Vital Signs Vital signs: Temp Pulse Resp BP Pulse Ox 97.5 F 65 23 H 160/46 H 100 08/16/19 10:32 08/16/19 06:48 08/16/19 07:41 08/16/19 07:41 08/16/19 07:41 08/16/19 12:00 Patient is on 3 L nasal O2 to maintain a pulse ox of 100%. - Laboratory Result Diagrams: 08/16/19 05:15 08/16/19 05:15 Laboratory results interpreted by me: 08/16/19 08/16/19 08/16/19 05:15 05:15 05:15 WBC 15.6 H RBC 2.85 L Hgb 8.4 L Hct 25.2 L RDW 16.6 H Lymph % (Auto) 9.8 L Absolute Neuts (auto) 12.7 H Seg Neutrophils % 81.2 H Sodium 132.4 L Potassium 5.1 H BUN 44 H Creatinine 1.48 H Est GFR ( Amer) 41 L Est GFR (MDRD) Non-Af 34 L Lactic Acid Total Bilirubin 3.4 H Direct Bilirubin 2.5 H AST 738 H ALT 210 H Alkaline Phosphatase 360 H Ammonia NT-Pro-B Natriuret Pep 8830 H Total Protein 5.4 L Albumin 2.8 L Urine Urobilinogen 08/16/19 08/16/19 08/16/19 07:40 09:15 10:25 WBC RBC Hgb Hct RDW Lymph % (Auto) Absolute Neuts (auto) Seg Neutrophils % Sodium Potassium BUN Creatinine Est GFR ( Amer) Est GFR (MDRD) Non-Af Lactic Acid 4.9 H Total Bilirubin Direct Bilirubin AST ALT Alkaline Phosphatase Ammonia < 8.7 L NT-Pro-B Natriuret Pep Total Protein Albumin Urine Urobilinogen 2.0 H 08/16/19 11:59 Patient laboratory shows an elevated white blood cell count of 15,000 hemoglobin 8.5 BUN/creatinine of 44 and 1.48, BNP of over 8000 and a troponin of 0.017. Also noted a normal ammonia level at 8.7. Lactic acid of 4.9. Patient also has a guaiac positive stool no active bleeding or melena noted. Urinalysis disclosed 3+ bacteria consistent with urinary tract infection. - Diagnostic Test Radiology reviewed: Image reviewed, Reports reviewed Radiology results interpreted by me: 08/16/19 11:58 Chest x-ray shows raised right hemidiaphragm with poor inspiration cardiomegaly calcification noted in the aortic arch no acute process. - EKG Interpretation by Me Additional EKG results interpreted by me: 08/16/19 11:56 Twelve-lead EKG done at 537 shows normal sinus rhythm rate of 66 borderline T wave changes. Critical Care Note - Critical Care Note Total time excluding time spent on procedures (mins): 49 - Management of CHF, COPD, shortness of breath, infection, elevated lactic acid, GI bleed Discharge - Discharge Clinical Impression: Shortness of breath, CHF (congestive heart failure), COPD (chronic obstructive pulmonary disease), Elevated lactic acid level, Urinary tract infection, Metastatic lung cancer (metastasis from lung to other site), GI bleed Condition: Critical Disposition: ADMITTED INPATIENT Admitting Provider: Ora (Hospitalist) Unit Admitted: IMCU Referrals: BLADIMIR JIMENEZ PA-C [Primary Care Provider] - Follow up as needed I personally performed the services described in the documentation, reviewed and edited the documentation which was dictated to the scribe in my presence, and it accurately records my words and actions.
[2019-08-16] MEDS ORDERED: NORMAL SALINE 1000 ML 1,000 ML IV ONE (13:15)
[2019-08-16] MEDS ORDERED: ACETAMINOPHEN 325 MG TABLET PO PRN (13:32)
[2019-08-16] MEDS ORDERED: MAG HYDROX/AL HYDROX/SIMETH SUSP 30 ML UDCUP PO PRN (13:37)
[2019-08-16] MEDS ORDERED: PROMETHAZINE HCL INJ 25 MG/1 ML VIAL IV PRN (13:37)
[2019-08-16] MEDS ORDERED: ONDANSETRON HCL INJ/PF 4 MG/2 ML SDV IV PRN (13:37)
[2019-08-16] MEDS ORDERED: DEXAMETHASONE SOD PHOS INJ 10 MG/1 ML VIAL IV ONE ×2 (13:40→15:00)
[2019-08-16] MEDS: NORMAL SALINE 1000 ML 1,000 ML IV PRN (15:03)
[2019-08-16 15:40] LABS: INTERNATIONAL RATION (INR) 1.22; PROTHROMBIN TIME 15.5 SEC (11.4-15.4)
--- NOTE | 2019-08-16 17:46 | PDOC CONSULTATION ---
Consultation Consult Date: 08/16/19 Provider Consulted: JATINDER SANTANA Consult reason:: Hematology Oncology consult was requested for patient with Small Cell Lung Cancer and mets to the liver and brain. History of Present Illness Admission Date/PCP: 08/16/19 12:16 BLADIMIR JIMENEZ PA-C History of Present Illness: Due to COVID-19 restrictions, I was not able to physically examine patient. I did speak with her by telephone as well as Jeri Frey, hospitalist. Patient was too confused to answer my questions or speak on the phone with me. 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 She was discharged from [facility] about 3 days prior. Her reports that at home, she was not able to eat, she was progressively more confused, and more dyspnic. Over the past few months, she had become progressively weaker. She has only received 1 or 2 radiation treatments. She was found to have a new UTI and worsening dyspnea and anemia. She continues to have Heme positive stools, although recent GI evaluation was negative for tumor or active bleeding. Past Medical History Cardiac Medical History: Reports: Hypertension Denies: Coronary Artery Disease, Myocardial Infarction Pulmonary Medical History: Reports: Chronic Obstructive Pulmonary Disease (COPD) Denies: Asthma, Bronchitis, Pneumonia Neurological Medical History: Denies: Seizures Endocrine Medical History: Reports: Diabetes Mellitus Type 2 Malignancy Medical History: Reports: Liver Cancer, Lung Cancer, Ovarian Cancer - ? bilateral oophorectomy for ovarian mass [facility]; no radiation/chemo Musculoskeltal Medical History: Reports: Arthritis Psychiatric Medical History: Reports: Depression Hematology: Denies: Anemia Past Surgical History Past Surgical History: Reports: Other - Bilateral oophorectomy Social History Smoking Status: Current Every Day Smoker Frequency of Alcohol Use: None Hx Recreational Drug Use: No Hx Prescription Drug Abuse: No Family History Parental Family History Reviewed: Yes - Mother age 100. Father Small cell lung cancer Children Family History Reviewed: No Sibling(s) Family History Reviewed.: No Medication/Allergy Home Medications: Clopidogrel Bisulfate [Plavix] 75 mg PO DAILY 05/07/18 Imipramine HCl [Tofranil] 100 mg PO QHS 05/07/18 Potassium Chloride [Klor-Con 10 Meq Tablet ER] 10 meq PO DAILY 05/07/18 Isosorbide Mononitrate [Imdur 30 mg Tablet.er] 30 mg PO QAM 05/11/18 Atorvastatin Calcium [Lipitor 40 mg Tablet] 40 mg PO QHS 08/03/19 Metoprolol Succinate [Toprol Xl 25 mg Tab.sr] 37.5 mg PO Q12 #100 tab.sr.24h 08/11/19 Albuterol Sulfate [Albuterol Sulfate Hfa] 2 puff IH QID 08/16/19 Albuterol Sulfate [Ventolin 0.083% Neb 2.5 mg/3 mL Ampul] 1 vial IH RTQ6HP PRN 08/16/19 Fluticasone/Vilanterol [Breo 100-25 Mcg Ellipta 14 Dose/Dpi] 1 puff IH DAILY 08/16/19 Allergies/Adverse Reactions: No Known Allergies Allergy (Verified 05/11/18 10:03) Review of Systems ROS unobtainable: Due to mental status Physical Exam Vital Signs: Temp Pulse Resp BP Pulse Ox 97.4 F 65 22 H 95/51 L 100 08/16/19 13:17 08/16/19 06:48 08/16/19 13:17 08/16/19 13:17 08/16/19 13:17 Intake & Output 08/15/19 08/16/19 08/17/19 06:59 06:59 06:59 Intake Total 1150 Balance 1150 Weight 76 kg Exam: Unable to obtain due to COVID-19 restrictions. Results Laboratory Results: 08/16/19 05:15 08/16/19 05:15 08/16/19 08/16/19 08/16/19 05:15 05:15 06:40 WBC 15.6 H RBC 2.85 L Hgb 8.4 L Hct 25.2 L MCV 88 MCH 29.4 MCHC 33.2 RDW 16.6 H Plt Count 383 Seg Neutrophils % 81.2 H VBG pH 7.34 VBG pCO2 39.1 VBG HCO3 20.6 VBG Base Excess -4.8 Sodium 132.4 L Potassium 5.1 H Chloride 100 Carbon Dioxide 23 Anion Gap 9 BUN 44 H Creatinine 1.48 H Est GFR ( Amer) 41 L Glucose 96 Lactic Acid Calcium 9.0 Total Bilirubin 3.4 H AST 738 H Alkaline Phosphatase 360 H Ammonia Total Protein 5.4 L Albumin 2.8 L Urine Color Urine Appearance Urine pH Ur Specific [place] Urine Protein Urine Glucose (UA) Urine Ketones Urine Blood Urine Nitrite Ur Leukocyte Esterase Urine WBC (Auto) Urine RBC (Auto) 08/16/19 08/16/19 08/16/19 07:40 09:15 10:25 WBC RBC Hgb Hct MCV MCH MCHC RDW Plt Count Seg Neutrophils % VBG pH VBG pCO2 VBG HCO3 VBG Base Excess Sodium Potassium Chloride Carbon Dioxide Anion Gap BUN Creatinine Est GFR ( Amer) Glucose Lactic Acid 4.9 H Calcium Total Bilirubin AST Alkaline Phosphatase Ammonia < 8.7 L Total Protein Albumin Urine Color DARK YELLOW Urine Appearance SLIGHTLY-CLOUDY Urine pH 5.0 Ur Specific [place] 1.012 Urine Protein NEGATIVE Urine Glucose (UA) NEGATIVE Urine Ketones NEGATIVE Urine Blood NEGATIVE Urine Nitrite NEGATIVE Ur Leukocyte Esterase NEGATIVE Urine WBC (Auto) 1 Urine RBC (Auto) 0 08/16/19 05:15 Troponin I 0.017 NT-Pro-B Natriuret Pep 8830 H Impressions: Chest X-Ray 08/16/19 05:47 IMPRESSION: Low lung volumes. Elevation of the right hemidiaphragm. As visualized, the lungs are clear copyright 2011 [employer]- All Rights Reserved Assessment & Plan - Diagnosis (1) Small cell lung cancer, overlapping sites of right lung Is this a current diagnosis for this admission?: Yes Plan: I discussed with patient's . He states that patient is a DNR and does not wish to have life support. He would like for her to be as comfortable as possible and do whatever we can to make this happen. He will see how she does over the next 1-2 days and discuss with family plans for Hospice or other treatment options. (2) Brain metastases Is this a current diagnosis for this admission?: Yes Plan: Dexamethasone. She is currently undergoing radiation treatments to the brain. Hopefully, this will help her symptoms. - Plan Summary Plan Summary: Will gently hydrate her and see if her symptoms improve with steroids. Plans are for palliative treatments, as she is not a candidate for Aggressive chemotherapy at this time. I will discuss further with family in the next few days and help in any way I can.
[2019-08-16] MEDS ORDERED: DEXAMETHASONE SOD PHOSPHATE INJ 4 MG/1 ML VIAL IV SCH (18:00)
[2019-08-16] MEDS ORDERED: IPRATROPIUM/ALBUTEROL 0.5-2.5 MG/3 ML AMPUL NEB SCH (20:00)
[2019-08-16] MEDS: LEVALBUTEROL HCL NEB 1.25 MG/3 ML AMPUL NEB PRN (20:41)
[2019-08-16] MEDS ORDERED: MORPHINE SULFATE 10 MG/5 ML ORAL SOLUTION UDCUP PO PRN (20:48)
--- NOTE | 2019-08-16 20:50 | PDOC H&P ---
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 Evaluation in the emergency department revealed Tachypnea but otherwise normal vital signs, leukocytosis (WBCs 15.6) anemia with a hemoglobin of 8.4, slightly elevated INR of 1.22, normal VBG, and chemistry notable for mild hyponatremia, hyperkalemia, dehydration (creatinine 1.48 and BUN 44), lactic acid 4.9, elevated transaminase, normal ammonia, proBNP of 8000. EKG shows normal sinus rhythm and chest x-ray revealed low lung volumes without acute findings. She was felt to be in CHF exacerbation and so was provided IV furosemide and then referred to the hospitalist service for admission management of the above- stated complaints and findings. Past Medical History Cardiac Medical History: Reports: Hypertension Denies: Coronary Artery Disease, Myocardial Infarction Pulmonary Medical History: Reports: Chronic Obstructive Pulmonary Disease (COPD) Denies: Asthma, Bronchitis, Pneumonia Neurological Medical History: Denies: Seizures Endocrine Medical History: Reports: Diabetes Mellitus Type 2 Malignancy Medical History: Reports: Lung Cancer - Primary Lung CA with brain and liver metastasis, Ovarian Cancer - ? bilateral oophorectomy for ovarian mass at [facility]; no radiation/chemo Musculoskeltal Medical History: Reports: Arthritis Psychiatric Medical History: Reports: Depression Hematology: Denies: Anemia Past Surgical History Past Surgical History: Reports: Other - Bilateral oophorectomy Social History Information Source: Patient, Relative, [facility] Records Lives with: Family Smoking Status: Current Every Day Smoker Electronic Cigarette use?: No Frequency of Alcohol Use: None Hx Recreational Drug Use: No Hx Prescription Drug Abuse: No - Advance Directive Resuscitation Status: Do Not Resuscitate Family History Family History: Reviewed & Not Pertinent Parental Family History Reviewed: No - r/t AMD Children Family History Reviewed: Unknown Sibling(s) Family History Reviewed.: Unknown Medication/Allergy Home Medications: Clopidogrel Bisulfate [Plavix] 75 mg PO DAILY 05/07/18 Imipramine HCl [Tofranil] 100 mg PO QHS 05/07/18 Potassium Chloride [Klor-Con 10 Meq Tablet ER] 10 meq PO DAILY 05/07/18 Isosorbide Mononitrate [Imdur 30 mg Tablet.er] 30 mg PO QAM 05/11/18 Atorvastatin Calcium [Lipitor 40 mg Tablet] 40 mg PO QHS 08/03/19 Metoprolol Succinate [Toprol Xl 25 mg Tab.sr] 37.5 mg PO Q12 #100 tab.sr.24h 08/11/19 Albuterol Sulfate [Albuterol Sulfate Hfa] 2 puff IH QID 08/16/19 Albuterol Sulfate [Ventolin 0.083% Neb 2.5 mg/3 mL Ampul] 1 vial IH RTQ6HP PRN 08/16/19 Fluticasone/Vilanterol [Breo 100-25 Mcg Ellipta 14 Dose/Dpi] 1 puff IH DAILY 08/16/19 Allergies/Adverse Reactions: No Known Allergies Allergy (Verified 05/11/18 10:03) Review of Systems ROS unobtainable: Due to mental status Physical Exam Vital Signs: Temp Pulse Resp BP Pulse Ox 97.8 F 68 20 115/44 L 100 08/16/19 17:01 08/16/19 17:01 08/16/19 17:01 08/16/19 17:01 08/16/19 17:01 Intake & Output 08/15/19 08/16/19 08/17/19 06:59 06:59 06:59 Intake Total 1390 Balance 1390 Weight 76 kg General appearance: PRESENT: cooperative, disheveled, mild distress, well- developed, well-nourished Head exam: PRESENT: atraumatic, normocephalic Eye exam: PRESENT: conjunctiva pink, EOMI, PERRLA. ABSENT: scleral icterus Mouth exam: PRESENT: dry mucosa, tongue midline Respiratory exam: PRESENT: clear to auscultation [place]. ABSENT: rales, rhonchi, wheezes Cardiovascular exam: PRESENT: RRR. ABSENT: diastolic murmur, rubs, systolic murmur Pulses: PRESENT: normal dorsalis pedis pul Vascular exam: PRESENT: normal capillary refill GI/Abdominal exam: PRESENT: normal bowel sounds, soft. ABSENT: distended, guarding, mass, organolmegaly, rebound, tenderness Rectal exam: PRESENT: deferred Extremities exam: PRESENT: full ROM. ABSENT: calf tenderness, clubbing, pedal edema Neurological exam: PRESENT: alert, awake, oriented to person, oriented to place, oriented to time, oriented to situation, CN II-XII grossly intact. ABSENT: motor sensory deficit Psychiatric exam: PRESENT: appropriate affect, normal mood. ABSENT: homicidal ideation, suicidal ideation Skin exam: PRESENT: dry, intact, warm. ABSENT: cyanosis, rash Results Laboratory Results: 08/16/19 05:15 08/16/19 05:15 08/16/19 08/16/19 08/16/19 05:15 05:15 06:40 WBC 15.6 H RBC 2.85 L Hgb 8.4 L Hct 25.2 L MCV 88 MCH 29.4 MCHC 33.2 RDW 16.6 H Plt Count 383 Seg Neutrophils % 81.2 H VBG pH 7.34 VBG pCO2 39.1 VBG HCO3 20.6 VBG Base Excess -4.8 Sodium 132.4 L Potassium 5.1 H Chloride 100 Carbon Dioxide 23 Anion Gap 9 BUN 44 H Creatinine 1.48 H Est GFR ( Amer) 41 L Glucose 96 Lactic Acid Calcium 9.0 Total Bilirubin 3.4 H AST 738 H Alkaline Phosphatase 360 H Ammonia Total Protein 5.4 L Albumin 2.8 L Urine Color Urine Appearance Urine pH Ur Specific [place] Urine Protein Urine Glucose (UA) Urine Ketones Urine Blood Urine Nitrite Ur Leukocyte Esterase Urine WBC (Auto) Urine RBC (Auto) 08/16/19 08/16/19 08/16/19 07:40 09:15 10:25 WBC RBC Hgb Hct MCV MCH MCHC RDW Plt Count Seg Neutrophils % VBG pH VBG pCO2 VBG HCO3 VBG Base Excess Sodium Potassium Chloride Carbon Dioxide Anion Gap BUN Creatinine Est GFR ( Amer) Glucose Lactic Acid 4.9 H Calcium Total Bilirubin AST Alkaline Phosphatase Ammonia < 8.7 L Total Protein Albumin Urine Color DARK YELLOW Urine Appearance SLIGHTLY-CLOUDY Urine pH 5.0 Ur Specific [place] 1.012 Urine Protein NEGATIVE Urine Glucose (UA) NEGATIVE Urine Ketones NEGATIVE Urine Blood NEGATIVE Urine Nitrite NEGATIVE Ur Leukocyte Esterase NEGATIVE Urine WBC (Auto) 1 Urine RBC (Auto) 0 08/16/19 05:15 Troponin I 0.017 NT-Pro-B Natriuret Pep 8830 H Impressions: Chest X-Ray 08/16/19 05:47 IMPRESSION: Low lung volumes. Elevation of the right hemidiaphragm. As visualized, the lungs are clear copyright 2011 [id number]- All Rights Reserved Assessment and Plan - Diagnosis (1) Acute encephalopathy Is this a current diagnosis for this admission?: Yes Plan: Multifactorial secondary to dehydration and brain metastasis. Urinalysis negative for UTI. Chest x-ray unremarkable; although she has an elevated WBC, she is noted to be afebrile and maintaining oxygen saturations in the mid to high 90s on her baseline oxygen status. She does have clear lung sounds at this time and per family members has not had fever or cough at home. Low suspicion for pneumonia. No clear evidence of infectious process at this time. Of note, during the patient's last admission, her best mentation revealed she was oriented to self, place, variable year 1969 to 2019, and consistently [employer] [place]. Today, she is still oriented to [employer] [place] but does recognize that she is at [facility]; though with increased word salad from previously. We will gently hydrate with IV fluids. Fall precautions. Supportive care. (2) Metastatic lung cancer (metastasis from lung to other site) Qualifiers: Laterality: unspecified laterality Qualified Code(s): C34.90 - Malignant neoplasm of unspecified part of unspecified bronchus or lung Is this a current diagnosis for this admission?: Yes Plan: Patient with new diagnosis of lung cancer with brain and liver metastasis. On whole brain radiation treatment #2 of 5; discussed with radiation oncology today. They will attempt to follow-up to continue her radiation treatments while she is admitted once her respiratory status has improved. Oncology is consulted; discussed with Dr. Sim today. Awaiting further lab results to determine appropriateness for immunotherapy versus chemotherapy. Per Dr. Sim, she did discuss with the patient's today goals of care. has indicated that he is interested in treating for current dehydration over the next 1 to 2 days to see if the patient's mentation improves. Depending on her recovery, will evaluate discharged home with palliative versus hospice services. I personally spoke with the patient's daughter who indicates that they are leaning more towards hospice services but does agree with 1 to 2-day hospital admission with a goal of improved mental status at time of discharge. Primary management per Dr. Sim's expertise. (3) Dehydration Is this a current diagnosis for this admission?: Yes Plan: Likely secondary to poor p.o. intake. Family members report that she has not been eating or drinking, though has been taking an ice chips quite frequently. Continue gentle IV fluids. Avoid nephrotoxic medications as able. Follow-up chemistry. (4) COPD (chronic obstructive pulmonary disease) Is this a current diagnosis for this admission?: Yes Plan: Stable and without exacerbation at this time. We will continue home dose Breo and scheduled albuterol HFA. As needed nebulizer treatments. Supplemental oxygen as needed maintain saturations greater than 89%. On IV Decadron for treatment of brain metastasis. No indications for antibiotic therapy at this time. (5) Liver enzyme elevation Is this a current diagnosis for this admission?: Yes Plan: Primarily related to metastatic disease; worsened by current dehydrated status. We will provide IV fluids overnight. Follow-up chemistry. (6) Elevated lactic acid level Is this a current diagnosis for this admission?: Yes Plan: Secondary to metastatic disease and dehydration. IV fluids overnight. No evidence of infectious process. Does not meet for SIRS/sepsis at this time. (7) CHF (congestive heart failure) Qualifiers: Heart failure type: diastolic Heart failure chronicity: chronic Qualified Code(s): I50.32 - Chronic diastolic (congestive) heart failure Is this a current diagnosis for this admission?: Yes Plan: Patient likely has underlying diastolic CHF evidenced by cardiomegaly, Hypertension, and mild peripheral edema. Although, her edema is just as likely to be related to her current liver disease. proBNP is elevated to 8000. Chest x-ray with low lung volumes and enlarged heart. On exam, she actually appears to be dehydrated with dry mucous membranes, lack of tearing, and dark kassidy urine with elevated creatinine/BUN, and urine pH 5.0. Will continue patient's home dose Metoprolol, Isosorbide, atorvastatin and plavix. Avoiding CATHRYN/ARB currently related to slightly elevated Cr/BUN. Daily weights, strict I&Os (8) Dyspnea Qualifiers: Dyspnea type: shortness of breath Qualified Code(s): R06.02 - Shortness of breath; R06.00 - Dyspnea, unspecified; R06.01 - Orthopnea Is this a current diagnosis for this admission?: Yes Plan: Likely secondary to lung cancer and liver metastasis with enlarged abdomen resulting in decrease diaphragmatic excursion. Patient does report right upper quadrant abdominal pain with deep breath and cough. Chest x-ray shows low lung volumes, though clear lung brandon where visualized. WBCs slightly elevated, however, she is afebrile and per family members has not complained of fever/chills or productive cough. We will continue home dose Breo, albuterol HFA with as needed nebulizer treatments. Continue supplemental oxygen as needed maintain saturations greater than 89%. Consider evaluation of abdomen for ascites, although, she did not have drainable fluid during her recent admission last week. She has been started on dexamethasone for treatment of her brain metastasis, this may potentially help any mild underlying COPD exacerbation, although I have low suspicion of this being an active process. No indications for antibiotic therapy at this time. May consider p.o. morphine, as needed, for shortness of breath for symptomatic management. - Time Time Spent with patient: 35 or more minutes Medications reviewed and adjusted accordingly: Yes Anticipated discharge: Hospice Within: within 48 hours
[2019-08-16] MEDS: DEXAMETHASONE SOD PHOSPHATE INJ 4 MG/1 ML VIAL IV SCH (21:54)
[2019-08-16] MEDS: PANTOPRAZOLE SODIUM 40 MG VIAL IV SCH (21:55)
[2019-08-16] MEDS ORDERED: IMIPRAMINE HCL 100 MG PO SCH (22:00)
[2019-08-16] MEDS ORDERED: ALBUTEROL SULFATE HFA (90 MCG/PUFF) 8 GM MDI (1 MDI/ER DISP) IH SCH (22:00)
[2019-08-16] MEDS ORDERED: IMIPRAMINE HCL 25 MG TABLET PO SCH (22:00)
[2019-08-16] MEDS ORDERED: ATORVASTATIN CALCIUM 40 MG TABLET PO SCH (22:00)
[2019-08-16] MEDS: METOPROLOL SUCCINATE 25 MG TAB.SR.24H PO SCH (22:14)
[2019-08-17] MEDS: NORMAL SALINE 1000 ML 1,000 ML IV PRN
[2019-08-17] MEDS: ALBUTEROL SULFATE HFA (90 MCG/PUFF) 200 PUFF/8.5 GM MDI IH SCH ×2 (00:30→06:45)
[2019-08-17] MEDS: DEXAMETHASONE SOD PHOSPHATE INJ 4 MG/1 ML VIAL IV SCH ×4 (00:30→21:56)
[2019-08-17 07:18] LABS: ALBUMIN 3.1 g/dL (3.5-5.0); ALKALINE PHOSPHATASE 354 U/L (38-126); ANION GAP 13 (5-19); BILIRUBIN,DIRECT 2.9 mg/dL (0.0-0.4); BILIRUBIN,TOTAL 3.8 mg/dL (0.2-1.3); BLOOD UREA NITROGEN 60 mg/dL (7-20); CALCIUM 8.9 mg/dL (8.4-10.2); CARBON DIOXIDE 20 mmol/L (22-30); CHLORIDE 101 mmol/L (98-107); GLUCOSE 125 mg/dL (75-110); POTASSIUM 5.7 mmol/L (3.6-5.0); TOTAL PROTEIN 6.1 g/dL (6.3-8.2)
[2019-08-17 07:18] LABS: HEMATOCRIT 26.2 % (36.0-47.0); HEMOGLOBIN 8.5 g/dL (12.0-15.5); MEAN CORPUSCULAR HEMOGLOBIN 28.9 pg (27.0-33.4); MEAN CORPUSCULAR HGB CONC 32.7 g/dL (32.0-36.0); MEAN CORPUSCULAR VOLUME 88 fl (80-97); PLATELET COUNT 398 10^3/uL (150-450); RED BLOOD COUNT 2.96 10^6/uL (3.72-5.28); RED CELL DISTRIBUTION WIDTH 17.2 % (11.5-14.0)
[2019-08-17 07:30] LABS: ASPARTATE AMINO TRANSFERASE 1045 U/L (14-36)
[2019-08-17] MEDS ORDERED: NORMAL SALINE 1000 ML 1,000 ML IV ONE (08:00)
[2019-08-17] MEDS ORDERED: ISOSORBIDE MONONITRATE 30 MG TAB.ER.24H PO SCH (08:00)
[2019-08-17] MEDS ORDERED: SODIUM POLYSTYRENE SULFONATE 15 GM/60 ML PO ONE (08:24)
[2019-08-17 08:49] LABS: INTERNATIONAL RATION (INR) 1.18; PROTHROMBIN TIME 15.1 SEC (11.4-15.4)
--- NOTE | 2019-08-17 08:50 | Progress Note ---
Provider Note Provider Note: I was able to speak with patient's nurse as well as her this morning. Patient continues to be confused and very weak. She did receive pain medication. She has very little urine output. Her Cr and LFTs are worse and her potassium is climbing. Lactulose has been added for this. She has received antibiotics, although cultures are no growth to date. Radiation Oncology is planning to treat her today, if she can tolerate. Her agrees that if she has not shown considerable improvement by tomorrow, that plans should be made for comfort measures only. I am not sure if she will be able to be discharged with Hospice, and family may need to be with patient tomorrow if she continues to decline rapidly. Please call me with any concerns.
[2019-08-17] MEDS: METOPROLOL SUCCINATE 25 MG TAB.SR.24H PO SCH (09:05)
[2019-08-17] MEDS: PANTOPRAZOLE SODIUM 40 MG VIAL IV SCH ×2 (09:05→21:55)
[2019-08-17] MEDS: ALBUMIN HUMAN 12.5 GM/50 ML RTUINJ IV SCH ×2 (09:49→09:57)
[2019-08-17] MEDS ORDERED: POTASSIUM CHLORIDE 10 MEQ TABLET.ER PO SCH (10:00)
[2019-08-17] MEDS ORDERED: FLUTICASONE/VILANTEROL 100-25 MCG/DOSE IH SCH (10:00)
[2019-08-17] MEDS ORDERED: CLOPIDOGREL BISULFATE 75 MG TABLET PO SCH (10:00)
[2019-08-17] MEDS ORDERED: LACTULOSE SYRUP 20 GM/30 ML UDCUP PO SCH (10:00)
[2019-08-17] MEDS ORDERED: DOCUSATE SODIUM 100 MG CAPSULE PO SCH (10:00)
[2019-08-17] MEDS: LEVALBUTEROL HCL NEB 1.25 MG/3 ML AMPUL NEB PRN (10:09)
[2019-08-17] MEDS ORDERED: IPRATROPIUM/ALBUTEROL 0.5-2.5 MG/3 ML AMPUL NEB PRN (11:19)
[2019-08-17] MEDS ORDERED: ACETAMINOPHEN 650 MG SUPP.RECT PR PRN (11:20)
[2019-08-17] MEDS ORDERED: LORAZEPAM INJ 2 MG/1 ML VIAL IV PRN (11:20)
[2019-08-17] MEDS ORDERED: MORPHINE SULFATE 10 MG/ML INJ IV PRN (12:08)
--- NOTE | 2019-08-17 12:24 | ADVANCED CARE ---
- Diagnosis (1) Acute encephalopathy Diagnosis Current: Yes (2) Metastatic lung cancer (metastasis from lung to other site) Diagnosis Current: Yes (3) Dehydration Diagnosis Current: Yes (4) COPD (chronic obstructive pulmonary disease) Diagnosis Current: Yes (5) Liver enzyme elevation Diagnosis Current: Yes (6) Elevated lactic acid level Diagnosis Current: Yes (7) CHF (congestive heart failure) Diagnosis Current: Yes (8) Dyspnea Diagnosis Current: Yes Attendance: Patient's , daughter, son, and grandson at bedside. Resuscitation Status: Comfort Measures Only Discussion: Met with the patient's family at the bedside. Discussed her relatively recent diagnosis of lung cancer with brain and liver metastasis. Discussed her presentation to the emergency department yesterday with worsening mental status and evidence of dehydration. We discussed her worsening mentation today, continued dyspnea/air hunger, and worsening renal and liver enzymes. Expressed that I was concerned that the patient's metastatic disease was progressing rapidly and that despite fluid resuscitation, she would likely relapse rapidly once discharged home. We discussed option for continued aggressive care with the goal of discharging to home and continuing palliative radiation and chemotherapy services vs transition to hospice and continuing supportive measures until her disposition was determined (home w/ hospice vs inpatient center) vs transition to comfort measures while remaining at [facility]. Family relayed that the patient had a Living Will expressing that she desired a "natural " and that their desire was to ensure that she remained comfortable. Family requested that we transition to comfort care measures only. They were gently made aware that I did not expect the patient to live much longer upon withdrawal of IVF and electrolyte correction. Family expressed understanding and confirmed their decision to transition to comfort care at this time. Care Planning Goals: Transition to Comfort Care Measures only. Time Spent: 25 min
[2019-08-17 12:33] LABS: ARTERIAL BLOOD BASE EXCESS -11.5 mmol/L; ARTERIAL BLOOD FIO2 2L; ARTERIAL BLOOD H2CO3 1.15 mmol/L (1.05-1.35); ARTERIAL BLOOD HCO3 15.3 mmol/L (20-24); ARTERIAL BLOOD O2 SATURATION 93.4 % (94-98); ARTERIAL BLOOD PCO2 38.3 mmHg (35-45); ARTERIAL BLOOD PH 7.22 (7.35-7.45); ARTERIAL BLOOD PO2 79.2 mmHg (80-100); ARTERIAL BLOOD TOTAL CO2 16.5 mmol/L (21-25)
--- NOTE | 2019-08-17 12:53 | PDOC PROGRESS REPORT ---
Subjective Progress Note for:: 08/17/19 Subjective:: PHILLIP WESLEY is a 79 year old female with a past medical history significant for CHF, COPD, tobacco dependence, and new diagnosis of lung cancer with liver and brain metastasis who was admitted 08/16/2019 with acute encephalopathy and dehydration. Patient was seen on morning rounds and again this afternoon with family members were present. She is a found to be awake and alert; oriented to self and president [place]ron. Otherwise, she answers most questions with word salad. She does appear to understand most statements but is unable to express clearly her desires. She does follow simple directions. She is noted to have continued tachypnea with shallow breathing and audible wheezing. Remaining ROS is limited secondary to mental status and expressive aphasia. Patient's case discussed with nursing. Reason For Visit: ACUTE ENCEPHALOPATHY,LUNG CA W/ METS Physical Exam Vital Signs: Temp Pulse Resp BP Pulse Ox 97.8 F 92 22 H 121/41 L 95 08/17/19 03:38 08/17/19 10:10 08/17/19 10:10 08/17/19 03:38 08/17/19 10:10 Intake & Output 08/16/19 08/17/19 08/18/19 06:59 06:59 06:59 Intake Total 2190 7 Output Total 550 Balance 1640 7 Weight 76 kg 76.9 kg 76.9 kg General appearance: PRESENT: cooperative, mild distress, well-developed, well- nourished Head exam: PRESENT: atraumatic, normocephalic Eye exam: PRESENT: conjunctiva pink, EOMI, PERRLA. ABSENT: scleral icterus Mouth exam: PRESENT: moist, tongue midline Respiratory exam: PRESENT: symmetrical, tachypnea, wheezes, other - Supplemental oxygen. ABSENT: rales, rhonchi Cardiovascular exam: PRESENT: RRR, +S2. ABSENT: diastolic murmur, rubs, systolic murmur Vascular exam: PRESENT: pallor, other - Dusky toes bilaterally GI/Abdominal exam: PRESENT: distended, hypoactive bowel sounds, tenderness. ABSENT: guarding, mass, organolmegaly, rebound Rectal exam: PRESENT: deferred Extremities exam: PRESENT: full ROM - Moves all extremities spontaneously. ABSENT: calf tenderness, clubbing, pedal edema Neurological exam: PRESENT: alert, awake, oriented to person, oriented to situation, CN II-XII grossly intact, aphasic - Worsening aphasia. ABSENT: motor sensory deficit Psychiatric exam: PRESENT: anxious, appropriate affect. ABSENT: homicidal ideation, suicidal ideation Skin exam: PRESENT: dry, intact, pallor - Cool/dusky toes bilaterally, warm. ABSENT: cyanosis, rash Results Laboratory Results: 08/17/19 06:23 08/17/19 05:49 08/17/19 08/17/19 08/17/19 05:49 06:23 08:09 WBC 26.0 H RBC 2.96 L Hgb 8.5 L Hct 26.2 L MCV 88 MCH 28.9 MCHC 32.7 RDW 17.2 H Plt Count 398 Carbonic Acid HCO3/H2CO3 Ratio ABG pH ABG pCO2 ABG pO2 ABG HCO3 ABG O2 Saturation ABG Base Excess FiO2 Sodium 134.3 L Potassium 5.7 H Chloride 101 Carbon Dioxide 20 L Anion Gap 13 BUN 60 H Creatinine 2.05 H Est GFR ( Amer) 28 L Glucose 125 H Lactic Acid 3.0 H Calcium 8.9 Total Bilirubin 3.8 H AST 1045 H Alkaline Phosphatase 354 H Ammonia Total Protein 6.1 L Albumin 3.1 L 08/17/19 08/17/19 08:09 10:10 WBC RBC Hgb Hct MCV MCH MCHC RDW Plt Count Carbonic Acid Cancelled HCO3/H2CO3 Ratio Cancelled ABG pH Cancelled ABG pCO2 Cancelled ABG pO2 Cancelled ABG HCO3 Cancelled ABG O2 Saturation Cancelled ABG Base Excess Cancelled FiO2 Cancelled Sodium Potassium Chloride Carbon Dioxide Anion Gap BUN Creatinine Est GFR ( Amer) Glucose Lactic Acid Calcium Total Bilirubin AST Alkaline Phosphatase Ammonia < 8.7 L Total Protein Albumin 08/16/19 05:15 Troponin I 0.017 NT-Pro-B Natriuret Pep 8830 H Impressions: Chest X-Ray 08/16/19 05:47 IMPRESSION: Low lung volumes. Elevation of the right hemidiaphragm. As visualized, the lungs are clear copyright 2011 [employer]- All Rights Reserved Assessment and Plan - Diagnosis (1) Comfort measures only status Is this a current diagnosis for this admission?: Yes Plan: PRN IV Ativan, IV morphine, oral Tylenol, IL Tylenol if unable to take oral, IV Zofran, IV Phenergan, and nebulizer treatments as needed for symptom management. Continue supplemental oxygen at 2 L/min for comfort only. We will continue IV Decadron. Discharge planning consulted. (2) Acute encephalopathy Is this a current diagnosis for this admission?: Yes Plan: Overnight, patient's expressive aphasia has worsened. She is oriented to self, but primarily unable to clearly express any other statements to further assess orientation. She does follow simple directions. Multifactorial secondary to dehydration and brain metastasis. Urinalysis negative for UTI. Chest x-ray unremarkable; although she has an elevated WBC, she is noted to be afebrile and maintaining oxygen saturations in the mid to high 90s on her baseline oxygen status. She does have clear lung sounds at this time and per family members has not had fever or cough at home. Low suspicion for pneumonia. No clear evidence of infectious process at this time. Of note, during the patient's last admission, her best mentation revealed she was oriented to self, place, variable year 1971 to 2019, and consistently President [place]. Today, she is still oriented to President Anderson but does recognize that she is at [facility]; though with increased word salad from previously. Discussion had with patient's family members regarding goals of care. They have requested to transition to comfort care measures only. (3) Metastatic lung cancer (metastasis from lung to other site) Qualifiers: Laterality: unspecified laterality Qualified Code(s): C34.90 - Malignant neoplasm of unspecified part of unspecified bronchus or lung Is this a current diagnosis for this admission?: Yes Plan: Patient with new diagnosis of lung cancer with brain and liver metastasis. On whole brain radiation treatment #2 of 5; discussed with radiation oncology today. They will attempt to follow-up to continue her radiation treatments whi le she is admitted once her respiratory status has improved. Oncology is consulted; discussed with Dr. Sim today. Awaiting further lab results to determine appropriateness for immunotherapy versus chemotherapy. Per Dr. Sim, she did discuss with the patient's today goals of care. has indicated that he is interested in treating for current dehydration over the next 1 to 2 days to see if the patient's mentation improves. Depending on her recovery, will evaluate discharged home with palliative versus hospice services. I personally spoke with the patient's daughter who indicates that they are leaning more towards hospice services but does agree with 1 to 2-day hospital admission with a goal of improved mental status at time of discharge. Discussed with Dr. Sim's; she has had similar conversations with patient's family regarding goals of care. Now on Comfort Care Measures. (4) Dehydration Is this a current diagnosis for this admission?: Yes Plan: Likely secondary to poor p.o. intake. Family members report that she has not been eating or drinking, though has been taking an ice chips quite frequently. [employer]. Oral fluids as tolerated. (5) COPD (chronic obstructive pulmonary disease) Is this a current diagnosis for this admission?: Yes Plan: Mild exacerbation. Continue as needed nebulizer treatments. Supplemental oxygen as needed maintain saturations greater than 89%. Will continue on IV Decadron for r/t brain metastasis (6) Liver enzyme elevation Is this a current diagnosis for this admission?: Yes Plan: Worsened today despite hydration overnight. Primarily related to metastatic disease. Now [employer]. (7) Elevated lactic acid level Is this a current diagnosis for this admission?: Yes Plan: Slight improvement with fluids. Secondary to metastatic disease and dehydration. No evidence of infectious process. Does not meet for SIRS/sepsis at this time. Now transitioning to comfort care measures only. (8) CHF (congestive heart failure) Qualifiers: Heart failure type: diastolic Heart failure chronicity: chronic Qualified Code(s): I50.32 - Chronic diastolic (congestive) heart failure Is this a current diagnosis for this admission?: Yes Plan: Patient likely has underlying diastolic CHF evidenced by cardiomegaly, Hypertension, and mild peripheral edema. Although, her edema is just as likely to be related to her current liver disease. proBNP is elevated to 8000. Chest x-ray with low lung volumes and enlarged heart. On exam, she actually appears to be dehydrated with dry mucous membranes, lack of tearing, and dark kassidy urine with elevated creatinine/BUN, and urine pH 5.0. (9) Dyspnea Qualifiers: Dyspnea type: shortness of breath Qualified Code(s): R06.02 - Shortness of breath; R06.00 - Dyspnea, unspecified; R06.01 - Orthopnea Is this a current diagnosis for this admission?: Yes Plan: Likely secondary to lung cancer and liver metastasis with enlarged abdomen resulting in decrease diaphragmatic excursion. Patient does report right upper quadrant abdominal pain with deep breath and co ugh. Chest x-ray shows low lung volumes, though clear lung brandon where visualized. WBCs slightly elevated, however, she is afebrile and per family members has not complained of fever/chills or productive cough. We will continue with as needed nebulizer treatments. Continue supplemental oxygen as needed maintain saturations greater than 89%. Continue IV morphine, as needed, for shortness of breath for symptomatic management. (10) Acute renal failure Is this a current diagnosis for this admission?: Yes Plan: Worsening renal function today despite IVF. Now transitioned to comfort care measures. - Time Time Spent with patient: 25-34 minutes Medications reviewed and adjusted accordingly: Yes
--- NOTE | 2019-08-17 12:56 | EKG REPORT ---
SEVERITY:- NORMAL ECG - SINUS RHYTHM NO EKG FEATURES OF HYPERKALEMIA. : Confirmed by: Carter Ferrer MD 17-Aug-2019 12:55:37
[2019-08-17] MEDS ORDERED: IPRATROPIUM/ALBUTEROL 0.5-2.5 MG/3 ML AMPUL NEB SCH (14:00)
[2019-08-17 19:35] VITALS: BP 124/82
[2019-08-18] MEDS ORDERED: SCOPOLAMINE HYDROBROMIDE 1.5 MG PATCH.TD72 ONE (00:54)
[2019-08-18] MEDS ORDERED: SCOPOLAMINE HYDROBROMIDE 1.5 MG PATCH.TD72 TD SCH (01:00)
[2019-08-18] MEDS: DEXAMETHASONE SOD PHOSPHATE INJ 4 MG/1 ML VIAL IV SCH (02:58)
--- NOTE | 2019-08-19 12:56 | Death Summary ---
Summary Date : 08/18/19 Time of :: 04:10 Autopsy: No Resuscitation Status: Comfort Measures Only - Final Diagnosis (1) Comfort measures only status Is this a current diagnosis for this admission?: Yes (2) Acute encephalopathy Is this a current diagnosis for this admission?: Yes (3) Metastatic lung cancer (metastasis from lung to other site) Is this a current diagnosis for this admission?: Yes (4) Dehydration Is this a current diagnosis for this admission?: Yes (5) COPD (chronic obstructive pulmonary disease) Is this a current diagnosis for this admission?: Yes (6) Liver enzyme elevation Is this a current diagnosis for this admission?: Yes (7) Elevated lactic acid level Is this a current diagnosis for this admission?: Yes (8) CHF (congestive heart failure) Is this a current diagnosis for this admission?: Yes (9) Dyspnea Is this a current diagnosis for this admission?: Yes (10) Acute renal failure Is this a current diagnosis for this admission?: Yes (11) HRF (hepatorenal failure) Is this a current diagnosis for this admission?: Yes Hospital Course:: H&P: PHILLIP WESLEY is a 79 year old female with a past medical history significant for CHF, COPD, tobacco dependence, and new diagnosis of lung cancer with liver and brain metastasis who presented to the emergency department today via EMS with report of increased confusion and shortness of breath. Evaluation in the emergency department revealed Tachypnea but otherwise normal vital signs, leukocytosis (WBCs 15.6) anemia with a hemoglobin of 8.4, slightly elevated INR of 1.22, normal VBG, and chemistry notable for mild hyponatremia, hyperkalemia, dehydration (creatinine 1.48 and BUN 44), lactic acid 4.9, elevated transaminase, normal ammonia, proBNP of 8000. EKG shows normal sinus rhythm and chest x-ray revealed low lung volumes without acute findings. She was felt to be in CHF exacerbation and so was provided IV furosemide and then referred to the hospitalist service for admission management of the above- stated complaints and findings. Course: Patient was admitted to [facility] on continuous cardiac telemetry. She was provided IV fluids for correction of her dehydration with hope of improving her mentation. There was no clear evidence of an infectious process and so antibiotics were not continued; she did receive cefepime while in the emergency department. Multiple discussions were had with patient's family members and with Dr. Sim regarding goals of care. The following day, the patient was noted to have increased encephalopathy, expressive aphasia, worsened liver enzymes, and fulminant renal failure with rapidly worsening creatinine/BUN and approximately 50 mL's urine output over the previous 12 hours despite having received 4 L IV fluids. At that time, the patient's family members were able to come to the patient's bedside to discuss her condition and goals of care. They expressed their desire that the patient be transitioned to comfort care measures only. Medications were adjusted to provide for symptomatic management. She expectantly early the following morning, 08/18/19, at 0410.
== END 2019-08-18 06:00 | DRG 291 ==
LOC: ER 05:18 → EH 12:16 → 3S 14:32
PROVIDERS: ADMIT Internal Medicine; ATTEND Registered Nurse
DX: I11.0 Hypertensive heart disease with heart failure (principal); K76.7 Hepatorenal syndrome; N17.9 Acute kidney failure, unspecified; C78.7 Secondary malignant neoplasm of liver and intrahepatic bile duct; C79.31 Secondary malignant neoplasm of brain; E87.1 Hypo-osmolality and hyponatremia; C34.81 Malignant neoplasm of overlapping sites of right bronchus and lung; J44.1 Chronic obstructive pulmonary disease with (acute) exacerbation; I50.32 Chronic diastolic (congestive) heart failure; E86.0 Dehydration; E87.5 Hyperkalemia; D63.0 Anemia in neoplastic disease; F32.9 Major depressive disorder, single episode, unspecified; E11.9 Type 2 diabetes mellitus without complications; Z51.5 Encounter for palliative care; F17.210 Nicotine dependence, cigarettes, uncomplicated; Z66 Do not resuscitate; Z79.899 Other long term (current) drug therapy; Z79.02 Long term (current) use of antithrombotics/antiplatelets
CPT/HCPCS: 36415; 36600; 51702; 71045; 80053; 81001; 82140; 82270; 82803; 83605; 83880; 84484; 85025; 85027; 85610; 87040; 93005; 93010; 94640; 96365; 96367; 96375; 99291; C9113; J0692; J1100; J1940; J2060; J2270; J3475; J3490; J7030; J7620; P9047